=== PATIENT | female | born 1960 | race Caucasian/White ===

== ENCOUNTER 2016-11-05 00:06 | Inpatient (IN) | payer MEDICAID, OTHER ==
--- NOTE | 2016-11-05 00:10 | EDPHY ---
H & P HPI/ROS: HPI CHIEF COMPLAINT: Shortness of breath, respiratory distress HISTORY OF PRESENT ILLNESS: This patient 56-year-old female she tells me she has significant past medical history for thyroid disease, she presents to the emergency room with shortness of breath and feeling unwell times 3 days. She reports very shortness of breath. Additionally reported abdominal pain on . Additionally she states that she went to an emergency room in [facility] on for lateral neck mass. She had a CT scan with IV contrast showed a lateral neck mass. She states since going to the emergency room on she has worsening shortness of breath. She does have a history of asthma. However she feels this is not her asthma. She states she has had decreased urine output. She decided come to the emergency room as her shortness of breath progressively got worse. Upon arrival to urgency room she is breathing 50+ times per minute, speaking 1 word sentences, appears ill and short of breath she is noted to be tachycardic in the 130s. She had a room air saturation of 86% Past Medical History: Thyroid disease, recently diagnosed left neck mass, ? Problem with liver. Obesity Past Surgical History: No recent surgery Social History: Denies Daily use drugs alcohol tobacco products Family History: Noncontributory ROS REVIEW OF SYSTEMS: A comprehensive 10 point review of systems is otherwise negative aside from elements mentioned in the history of present illness. Exam Constitutional respiratory distress, triage nursing summary reviewed, vital signs reviewed, awake/alert. Tachycardic, hypoxic, Eyes icteric sclera, EOMI, PERRLA. HENT normal inspection, atraumatic, moist mucus membranes, no epistaxis, neck supple/ no meningismus, no raccoon eyes. Respiratory decreased breath sounds bilaterally Cardiovascular tachycardic, regular rhythm, no murmur, no edema, distal pulses normal. Gastrointestinal soft, non-tender, no rebound, no guarding, normal bowel sounds, no distension, no pulsatile mass. Genitourinary no CVA tenderness. Musculoskeletal no midline vertebral tenderness, full range of motion, no calf swelling, no tenderness of extremities, no meningismus, good pulses, neurovascularly intact. Skin pink, warm, & dry, no rash, skin atraumatic. Neurologic awake, alert and oriented x 3, AAOx3, moves all 4 extremities equally, motor intact, sensory intact, CN II-XII intact, normal cerebellar, normal vision, normal speech. Psychiatric normal mood/affect. Heme/Lymph/Immune no lymphadenopathy. Differential Diagnosis: Includes but is not limited to in a particular order respiratory distress, hypoxic respiratory failure, volume overload, pulmonary edema, pulmonary embolism, CHF, ACS, cardiac arrhythmia, asthma Medical Decision Making: Plan for this patient patient be moved ER room 11 to ER room 2. She be placed on full face BiPAP. She will be aggressively resuscitated. Noted she is hypoxic, tachycardic, tachypneic and 1 word dyspnea. She appears very ill. She be placed on full face BiPAP this time. She is okay with intubation if need be. She received in-line neb, EKG, full labs including blood cultures lactic acid. Re-evaluation: EKG interpretation by me on record in [facility] system. Impression time of EKG 12:15 a.m., this is sinus tachycardia rate of 132. Upsloping ST depression inferior leads T-wave abnormalities inferior leads. No old EKG to compare this to. 1240AM: This time this patient is being aggressively resuscitated. She is in critical condition on full face BiPAP current heart rate 135. Respiratory rate 50. Blood pressure 74/54. She has impending respiratory failure may need emergent intubation. Additionally she will need nephrology consult for possible emergent dialysis. 0103AM: Spoke with Dr. Kristy Vasques with Nephrology. She was okay with giving her fluids at this time to be further assessed her volume status. She does not feel that this patient needs acute need for emergent dialysis this time. 0123AM: Elevated BNP, elevated troponin and elevated D-dimer. I am greatly concerned this patient has a pulmonary embolism that is significant. I will empirically start heparin. At this time I did re-evaluate her she remains tachycardic in the 120s, respiratory rate in the 40s. 95% on full face BiPAP. 0238AM: At this time this patient remains hypotensive and she is getting her 2nd L fluid. She has made very minimal output. Her urinalysis indicates that she has urinary tract infection. Her CT scan has been reviewed her lungs are clear. Her CT scan of her abdomen and pelvis shows that she has a ureteral stone very large obstructing 13 mm obstructing left-sided kidney stone with hydroureter and stranding around the left kidney. This is most likely cause of her renal failure as well as urinary tract infection. It appears she has an obstructing infected stone. After review of her urinalysis, CT scan shows that she has an obstructing left- sided ureteral stone with underlying a urinary tract infection. This is most likely causing her urosepsis or UTI with sepsis. This most likely causing the elevated lactic acid as well as hypotension. 0241AM: Consult Nephrology. Additionally I will consult Urology, additionally I will consult the hospitalist service for ICU admission. 0241AM: Due to her hypotension which is persistent she will require a right IJ central line for vasopressor management. Procedure: Central line placement. Indication: Hypotension with severe sepsis septic shock. Verbal informed consent was obtained, with the risks explained to include but not be limited to bleeding, infection, and collapsed lung. A timeout was observed and patients identity and correct procedure location confirmed. Full maximal sterile barrier technique was uses including cap, gown, sterile gloves, large sheet, hand washing and chlorhexidine prep. The area anesthetized with 1 % lidocaine. The Right IJ was punctured with a 19 gauge finder needle, then a was placed using standard Seldinger technique. There were no complications. Blood return low pressure, dark blood. Patient tolerated procedure well. CXR results: No Pneumothorax, LINE IN GOOD POSITION. X-ray was interpreted by myself. The procedure was performed by myself. Echocardiogram has been reviewed. This shows tachycardia but no cardiac effusion, no right heart strain. 0243AM: At this time this patient's blood pressure 69/44, heart rate 121. Pulse ox 99% on full face BiPAP. She is in critical condition. She is in septic shock. Septic shock from urinary tract infection with an obstructing kidney stone. I have ordered this patient broad-spectrum antibiotics which includes IV vancomycin + IV Zosyn. She is getting her 2nd L fluid at this time. ED x-ray chest one view: Right central line IJ in good position. No pneumothorax. Critical Care: Total Critical Care Time Spent Managing this Patient: 85 Minutes. This time was spent Exclusively with this patient. This Care was exclusive of procedures. The Organ System/life at risk was multiple organ failure. Multiorgan system failure. Severe sepsis, septic shock, UTI, renal failure This Patient was in Critical Condition because as above. 0251AM: Spoke With Dr. Jacques Conway with Urology, Recommends Perc Neph With IR. consult IR. 0256AM: Spoke with Dr. Kristy Vasques, Nephrology. Okay with 2nd L NS IV. 0308AM: Spoke with Dr. Treadwell with ICU critical care. Agrees with treatment plan at this time. Patient be admitted to the ICU. 0308AM: Spoke with Dr. Andrea, plane for perc Neph. 0427: Dr. Andrea a bedside plans to take this patient to the operating room with general anesthesia for a emergent nephrostomy tube. 0428AM: At this time re-evaluation. The patient's heart rate 111. Blood pressure 92/54 on Levophed at 18. Pulse ox 93% on 2 L nasal cannula. Plan for this patient she will go to the operating room for nephrostomy tube. This will hopefully relieve her obstruction allow the infected urine to drain. This will help with source control. Here in the emergency room she received 3 L of normal saline IV fluid bolus. She is on Levophed at 18. She received IV vancomycin and IV Zosyn. She is currently off BiPAP at this time. She is still tachypneic at 44. She is receiving platelets due to thrombocytopenia. She was initially given heparin as it was thought that she has a pulmonary embolism however she had a normal echocardiogram without right heart strain. And most likely her tachycardia, hypoxia, tachypnea, hypertension is due to severe sepsis from a UTI from an infected obstructing stone. Because it is unlikely that she has a pulmonary embolism however initially she presented like she had one her heparin has been stopped. Additionally she has low platelets. Plan will be for operating room and then ICU admission. Final diagnosis: Sepsis with septic shock, urinary tract infection, renal failure, obstructing kidney stone, thrombocytopenia, dehydration, hyponatremia, hypokalemia, hypoxic respiratory failure. Source: Patient Constitutional: Initial Vital Signs Temperature (C) 37.2 C 11/05/16 00:17 Heart Rate 137 H 11/05/16 00:17 Respiratory Rate 45 H 11/05/16 00:17 O2 Sat (%) 86 L 11/05/16 00:17 O2 Delivery Mode Bi-Pap O2 (L/minute) 4 Allergies/Adverse Reactions: No Known Allergies Allergy (Unverified 11/05/16 00:15) Home Medications: Medication Instructions Recorded Albuterol [Ventolin Hfa Inhaler] 1 - 2 puffs IH Q4 PRN 11/05/16 Calcium Carbonate [Tums 500MG (*)] 500 mg PO PRN PRN 11/05/16 Cholecalciferol Vit D3 [Vitamin D3 2,000 units PO DAILY 11/05/16 (*)] Herbals/Supplements -Info Only 1 ea PO DAILY 11/05/16 Medical Decision Making - Diagnostics Imaging Results: Imaging Impressions Chest X-Ray 11/05/16 00:15 Impression: Question mild pulmonary vascular congestion and early pulmonary edema or bronchitis. Mild cardiomegaly. - Data Points Laboratory Results: Laboratory Results 11/05/16 00:15 11/05/16 02:39 11/05/16 03:13 Patient ABO/Rh O POSITIVE Microbiology Results: MICROBIOLOGY 11/05/16 00:30 Blood Blood Culture - Preliminary Gram Negative Daniel 11/05/16 00:40 Blood Blood Culture - Preliminary Gram Negative Daniel 11/05/16 00:40 Blood Blood Panel (PCR) - Final Escherichia Coli 11/05/16 02:00 Urine,Catheterized Urine Culture - Preliminary Medications Given: Chlorhexidine Gluconate (Peridex) 15 ml PO Q12@08,20 ALBERTO Stop: 05/04/17 19:59 Last Admin: 11/05/16 20:16 Dose: 15 ml Norepinephrine/Sodium Chloride (Norepinephrine 8 Mcg/Ml (Premix)) 500 mls @ 0 mls/hr IV CONT ALBERTO; Titrate PRN Reason: Protocol Stop: 05/04/17 03:59 Last Admin: 11/05/16 17:02 Dose: 500 mls Sodium Chloride (Ns) 1,000 mls @ 125 mls/hr IV CONT ALBERTO Stop: 05/04/17 03:59 Last Admin: 11/05/16 17:03 Dose: 1,000 mls Piperacillin/Tazobactam/Dextrose (Zosyn 2.25 Gm (Premix)) 50 mls @ 100 mls/hr IV 0400,1000,1600,2200 ALBERTO PRN Reason: Protocol Stop: 12/05/16 09:59 Last Admin: 11/05/16 16:10 Dose: 50 mls Vasopressin/Dextrose (Vasopressin 0.1 Unit/Ml (Premix)) 250 mls @ 24 mls/hr IV CONT ALBERTO Stop: 05/04/17 07:29 Last Admin: 11/05/16 17:03 Dose: 250 mls Dexmedetomidine HCl 400 mcg/ (Sodium Chloride) 104 mls @ 0 mls/hr IV CONT ALBERTO; Titrate PRN Reason: Protocol Stop: 05/04/17 07:29 Last Admin: 11/05/16 08:00 Dose: 104 mls Fentanyl/Sodium Chloride (Fentanyl 10 Mcg/Ml (Premix)) 100 mls @ 0 mls/hr IV CONT ALBERTO; Per Protocol PRN Reason: Protocol Stop: 11/15/16 08:59 Last Admin: 11/05/16 08:00 Dose: 100 mls Propofol (Diprivan 10 Mg/Ml (Premix)) 100 mls @ 0 mls/hr IV CONT ALBERTO; Per Protocol PRN Reason: Protocol Stop: 05/04/17 08:59 Last Admin: 11/05/16 17:02 Dose: 100 mls Discontinued Medications Albuterol/Ipratropium (Duoneb) 3 ml IH EDNOW ONE Stop: 11/05/16 00:17 Last Admin: 11/05/16 00:26 Dose: 3 ml Heparin Sodium (Porcine) (Heparin Injection) 0 unit IVP EDNOW ONE PRN Reason: Protocol Stop: 11/05/16 01:15 Last Admin: 11/05/16 01:29 Dose: 7,000 unit Sodium Chloride (Ns) 1,000 mls @ 0 mls/hr IV ONCE ONE PRN Reason: Wide Open Stop: 11/05/16 00:38 Last Admin: 11/05/16 00:38 Dose: 1,000 mls Heparin Sodium (Porcine) (Heparin 50 Units/Ml (Premix)) 500 mls @ 0 mls/hr IV EDNOW ONE; Per Protocol PRN Reason: Protocol Stop: 11/05/16 01:15 Last Admin: 11/05/16 01:31 Dose: 500 mls Vancomycin/Sodium Chloride (Vancomycin 1 Gm (Premix)) 250 mls @ 250 mls/hr IV EDNOW ONE PRN Reason: Protocol Stop: 11/05/16 02:39 Last Admin: 11/05/16 02:32 Dose: 250 mls Piperacillin/Tazobactam/Dextrose (Zosyn (Premix)) 100 mls @ 200 mls/hr IV EDNOW ONE PRN Reason: Protocol Stop: 11/05/16 02:09 Last Admin: 11/05/16 01:58 Dose: 100 mls Sodium Chloride (Ns) 1,000 mls @ 0 mls/hr IV ONCE ONE PRN Reason: Wide Open Stop: 11/05/16 02:08 Last Admin: 11/05/16 02:10 Dose: Not Given Norepinephrine/Sodium Chloride (Norepinephrine 8 Mcg/Ml (Premix)) 500 mls @ 0 mls/hr IV EDNOW ONE; Per Protocol PRN Reason: Protocol Stop: 11/05/16 02:19 Last Admin: 11/05/16 02:46 Dose: 500 mls Sodium Chloride (Ns) 1,000 mls @ 0 mls/hr IV ONCE ONE PRN Reason: Wide Open Stop: 11/05/16 02:55 Last Admin: 11/05/16 02:55 Dose: 1,000 mls Famotidine/Sodium Chloride (Pepcid 20 Mg (Premix)) 50 mls @ 200 mls/hr IV Q12HRS ALBERTO Stop: 05/04/17 08:59 Last Admin: 11/05/16 10:33 Dose: Not Given Potassium Chloride (Potassium Cl 20 Meq (Premix)) 50 mls @ 50 mls/hr IV ONCE ONE Stop: 11/05/16 11:20 Last Admin: 11/05/16 11:33 Dose: 50 mls Magnesium Sulfate/Dextrose (Magnesium Sulf 1 Gm (Premix)) 100 mls @ 100 mls/hr IV ONCE ONE Stop: 11/05/16 11:20 Last Admin: 11/05/16 10:33 Dose: 100 mls Departure - Departure Disposition: [facility] Inpatient Acute Clinical Impression: Septic shock, Kidney stone, Hyponatremia, Elevated troponin, Urinary tract obstruction by kidney stone UTI (urinary tract infection) Qualifiers: Urinary tract infection type: acute cystitis Hematuria presence: with hematuria Qualified Code(s): N30.01 - Acute cystitis with hematuria Respiratory failure Qualifiers: Chronicity: acute Respiratory failure complication: hypoxia Qualified Code(s): J96.01 - Acute respiratory failure with hypoxia Renal failure Qualifiers: Renal failure chronicity: acute Acute renal failure type: unspecified Qualified Code(s): N17.9 - Acute kidney failure, unspecified Condition: Serious
[2016-11-05] MEDS ORDERED: IPRATROPIUM/ALBUTEROL 3 ML DEYVIAL IH ONE (00:16)
--- NOTE | 2016-11-05 00:19 | CPEKG ---
Heart Rate: 132 RR Interval: 455 P-R Interval: 132 QRSD Interval: 100 QT Interval: 288 QTC Interval: 427 P [place]: 46 QRS [place]: -20 T Wave [place]: -5 EKG Severity - ABNORMAL ECG - EKG Impression: SINUS TACHYCARDIA EKG Impression: PROBABLE LEFT ATRIAL ABNORMALITY EKG Impression: BORDERLINE LEFT AXIS DEVIATION EKG Impression: BORDERLINE R WAVE PROGRESSION, ANTERIOR LEADS EKG Impression: BORDERLINE T ABNORMALITIES, INFERIOR LEADS Electronically Signed By: Gael Penaloza 05-Nov-2016 07:02:43
[2016-11-05] MEDS ORDERED: IOPAMIDOL (ISOVUE 370) 100 ML BTL IV ONE (00:33)
[2016-11-05] MEDS ORDERED: NS 1,000 ML IV ONE ×3 (00:37→02:54)
[2016-11-05 00:43] LABS: ALANINE AMINOTRANSFERASE 45 IU/L (9-52); ALBUMIN 2.8 g/dL (3.5-5.0); ALKALINE PHOSPHATASE 180 IU/L (38-126); ANION GAP 16 mEq/L (8-16); ASPARTATE AMINOTRANSFERASE 52 IU/L (14-46); BILIRUBIN,TOTAL 5.2 mg/dL (0.1-1.4); BILIRUBIN-CONJUGATED 2.2 mg/dL (0.0-0.5); CARBON DIOXIDE 15 mEq/l (22-31); CHLORIDE 94 mEq/L (97-110); CREATININE 4.3 mg/dL (0.6-1.0); GLOMERULAR FILTRATION RATE 11; GLUCOSE 101 mg/dL (70-100); MAGNESIUM 1.6 mg/dL (1.6-2.3); SODIUM 125 mEq/L (134-144); TOTAL PROTEIN 5.8 g/dL (6.3-8.2)
[2016-11-05 00:57] LABS: CK-MB INTERPRETATION NEGATIVE (NEGATIVE); CREATINE KINASE-MB FRACTION 0.92 ng/mL (0.00-3.19); TROPONIN I 0.056 ng/mL (0.000-0.034)
[2016-11-05 00:58] LABS: APTT 32.5 SEC (23.0-38.0); INR 1.26 (0.83-1.16); PROTIME(PATIENT) 15.8 SEC (12.0-15.0)
[2016-11-05 01:04] LABS: BASE EXCESS -7.5 mEq/L (-2.5-2.5); BICARBONATE 15 mEq/L (22-26); MEASURED OXYGEN SATURATION 100 % (92-95); PCO2 22 mmHg (34-38); PO2 320 mmHg (65-75); TCO2 15 mEq/L (23-27)
[2016-11-05 01:05] LABS: BIPAP YES; EXP PRESSURE 7; INSP PRESSURE 14; O2 CONCENTRATIION 100 % (0-100); P/F RATIO 320 RATIO
[2016-11-05 01:09] LABS: ADD MORPH? NO; ADD SCAN? YES; ATYPICAL LYMPHOCYTE FLAG 0 (0-99); FRAGMENT RBC FLAG 0 (0-99); HEMATOCRIT 41.5 % (38.0-47.0); HEMOGLOBIN 15.1 g/dL (12.6-16.3); LIPEMIA HEMOLYSIS FLAG 90 (0-99); MEAN CELL HEMOGLOBIN 31.5 pg (27.9-34.1); MEAN CELL HEMOGLOBIN CONCENTR. 36.4 g/dL (32.4-36.7); MEAN CELL VOLUME 86.5 fL (81.5-99.8); MEAN PLATELET VOLUME 12.2 fL (8.7-11.7); PLATELET CLUMPS FLAG 10 (0-99); PLATELET COUNT 56 10^3/uL (150-400); RED CELL DISTRIBUTION WIDTH 12.8 % (11.5-15.2)
[2016-11-05 01:11] LABS: LEFT SHIFT FLG 240 (0-99)
[2016-11-05] MEDS ORDERED: HEPARIN 10,000 UNIT/10 ML MDV IVP ONE (01:14)
[2016-11-05] MEDS ORDERED: HEPARIN/DEXTROSE 500 ML IV ONE (01:14)
[2016-11-05 01:40] LABS: ADD DIFF? YES; SCAN POSITIVE
[2016-11-05] MEDS ORDERED: PIPERACILLIN/TAZO 4.5 GM/DEX 100 ML IV ONE (01:40)
[2016-11-05] MEDS ORDERED: VANCOMYCIN HCL/NORMAL SALINE 250 ML IV ONE ×2 (01:40→08:30)
[2016-11-05 01:44] LABS: PLATELET ESTIMATE DECREASED (ADEQ); TOXIC GRANULATION PRESENT; TOXIC VACUOLIZATION PRESENT
[2016-11-05 02:07] LABS: COLOR AMBER; LEUKOCYTE ESTERASE,URINE 3+ (NEGATIVE); NITRITE,URINE NEGATIVE (NEGATIVE)
[2016-11-05 02:18] LABS: AMORPHOUS PRESENT /hpf (NONE-1+); BACTERIA 2+ /hpf (NONE SEEN); RBC,URINE 50-182 /hpf (0-3); WBC,URINE 50-182 /hpf (0-3)
[2016-11-05] MEDS ORDERED: NOREPINEPHRINE/NS 500 ML IV ONE (02:18)
[2016-11-05 03:08] LABS: ANION GAP 15 mEq/L (8-16); CALCIUM 7.2 mg/dL (8.5-10.4); CARBON DIOXIDE 14 mEq/l (22-31); CHLORIDE 98 mEq/L (97-110); CREATININE 4.2 mg/dL (0.6-1.0); GLOMERULAR FILTRATION RATE 11; GLUCOSE 125 mg/dL (70-100); SODIUM 127 mEq/L (134-144)
[2016-11-05 03:18] LABS: MIXED VENOUS O2 SATURATION 94 % (65-75)
[2016-11-05 03:28] LABS: BASE EXCESS -10.2 mEq/L (-2.5-2.5); BICARBONATE 13 mEq/L (22-26); MEASURED OXYGEN SATURATION 100 % (92-95); PCO2 24 mmHg (34-38); PO2 334 mmHg (65-75); TCO2 14 mEq/L (23-27)
[2016-11-05 03:29] LABS: BIPAP YES; EXP PRESSURE 7; INSP PRESSURE 14; O2 CONCENTRATIION 100 % (0-100); P/F RATIO 334 RATIO
[2016-11-05] MEDS ORDERED: IOPAMIDOL (ISOVUE-300) 100 ML BTL ONE (04:15)
[2016-11-05] MEDS ORDERED: LIDOCAINE 1% 300 MG/30 ML SDV ONE (04:16)
--- NOTE | 2016-11-05 04:16 | PDGENHP ---
History and Physical - Chief Complaint Fatigue - History of Present Illness 56 yo F w/ untreated hypothyroidism and unclear hepatic dysfunction presented to ED acutely ill with complaints of fatigue, malaise, respiratory distress, dysuria, and flank pain. Patient explains she developed dysuria about 3 days ago followed by L sided flank pain 2 days prior to presentation. Then over the last 48 hours she became progressively fatigued and dyspneic. Upon arrival to the ED she was noted to be hypotensive, tachycardic, and hypoxic. Central access was obtained, norepinephrine therapy started, and broad spectrum antibiotics administered. Imaging notable for obstructing L sided nephrolithiasis along with grossly infectious appearing UA. By time of my evaluation patient had stabilized on vasopressors and was oxygenating well only on 2L O2 via NC. She remains in distress but is oriented, interacting, and answering questions appropriately. History Information - Allergies/Home Medication List Allergies/Adverse Reactions: No Known Allergies Allergy (Unverified 11/05/16 00:15) Home Medications: Albuterol 11/05/16 [Last Taken Unknown] NK [No Known Home Meds] 11/05/16 [Last Taken Unknown] I have personally reviewed and updated: family history, medical history - Past Medical History Additional medical history: Hypothyroid - Surgical History Reports: cholecystectomy - Family History Positive for: cancer (Gallbladder CA in mother) - Social History Smoking Status: Never smoked Alcohol Use: None Drug Use: None Review of Systems ROS: 10pt was reviewed & negative except for what was stated in HPI & below Physical Exam Temp Pulse Resp BP Pulse Ox 36.6 C 112 H 45 H 111/61 94 11/05/16 02:55 11/05/16 04:00 11/05/16 04:00 11/05/16 04:00 11/05/16 04:00 O2 (L/minute) 2 Constitutional: obese, uncomfortable Eyes: PERRL, EOMI Ears, Nose, Mouth, Throat: no oral mucosal ulcers, dry mucous membranes, other ( Swelling over L pre-aurical area) Cardiovascular: no murmur, rub, or gallop, tachycardia Respiratory: clear to auscultation, other (tachypneic) Gastrointestinal: normoactive bowel sounds, soft, non-tender abdomen Skin: warm, no rashes or abrasions Musculoskeletal: full muscle strength, no muscle tenderness Neurologic: AAOx3, CN II-XII Intact Psychiatric: interacting appropriately, not encephalopathic Lab Data & Imaging Review 11/05/16 00:15 11/05/16 02:39 WBC 20.95 10^3/uL (3.80-9.50) H 11/05/16 00:15 RBC 4.80 10^6/uL (4.18-5.33) 11/05/16 00:15 Hgb 15.1 g/dL (12.6-16.3) 11/05/16 00:15 POC Hgb 15.0 gm/dL (12.6-16.3) 11/05/16 00:26 Hct 41.5 % (38.0-47.0) 11/05/16 00:15 POC Hct 44 % (38-47) 11/05/16 00:26 MCV 86.5 fL (81.5-99.8) 11/05/16 00:15 MCH 31.5 pg (27.9-34.1) 11/05/16 00:15 MCHC 36.4 g/dL (32.4-36.7) 11/05/16 00:15 RDW 12.8 % (11.5-15.2) 11/05/16 00:15 Plt Count 56 10^3/uL (150-400) L 11/05/16 00:15 MPV 12.2 fL (8.7-11.7) H 11/05/16 00:15 Neut % (Auto) Not Reported 11/05/16 00:15 Lymph % (Auto) Not Reported 11/05/16 00:15 [place] % (Auto) Not Reported 11/05/16 00:15 Eos % (Auto) Not Reported 11/05/16 00:15 Baso % (Auto) Not Reported 11/05/16 00:15 Nucleat RBC Rel Count 0.0 % (0.0-0.2) 11/05/16 00:15 Absolute Neuts (auto) Not Reported 11/05/16 00:15 Absolute Lymphs (auto) Not Reported 11/05/16 00:15 Absolute Monos (auto) Not Reported 11/05/16 00:15 Absolute Eos (auto) Not Reported 11/05/16 00:15 Absolute Basos (auto) Not Reported 11/05/16 00:15 Absolute Nucleated RBC 0.00 10^3/uL (0-0.01) 11/05/16 00:15 Immature Gran % Not Reported 11/05/16 00:15 Seg Neutrophils % 80 % 11/05/16 00:15 Band Neutrophils % 11 % 11/05/16 00:15 Lymphocytes % 3 % 11/05/16 00:15 Monocytes % 6 % 11/05/16 00:15 Immature Gran # Not Reported 11/05/16 00:15 Absolute Seg Neuts 16.76 10^/uL (1.70-6.50) H 11/05/16 00:15 Absolute Band Neuts 2.30 10^3/uL (0.00-0.70) H 11/05/16 00:15 Absolute Lymphocytes 0.63 10^3/uL (1.00-3.00) L 11/05/16 00:15 Absolute Monocytes 1.26 10^3/uL (0.30-0.80) H 11/05/16 00:15 RBC/WBC/PLT Morphology NORMAL (NORMAL) 11/05/16 00:15 Toxic Granulation PRESENT H 11/05/16 00:15 Toxic Vacuolation PRESENT H 11/05/16 00:15 Dohle Bodies PRESENT H 11/05/16 00:15 Platelet Estimate DECREASED (ADEQ) L 11/05/16 00:15 PT 15.8 SEC (12.0-15.0) H 11/05/16 00:15 INR 1.26 (0.83-1.16) H 11/05/16 00:15 APTT 32.5 SEC (23.0-38.0) 11/05/16 00:15 D-Dimer 8.62 ug/mLFEU (0.00-0.50) H 11/05/16 00:15 Puncture Site NONE GIVEN 11/05/16 03:15 Patient Temperature 37.0 DEGREES 11/05/16 03:15 pCO2 24 mmHg (34-38) L 11/05/16 03:15 pO2 334 mmHg (65-75) H 11/05/16 03:15 Total CO2 14 mEq/L (23-27) L 11/05/16 03:15 ABG pH 7.36 (7.35-7.45) 11/05/16 03:15 ABG PO2/FiO2 Ratio 334 RATIO 11/05/16 03:15 ABG HCO3 13 mEq/L (22-26) L 11/05/16 03:15 ABG O2 Saturation 100 % (92-95) H 11/05/16 03:15 ABG Base Excess -10.2 mEq/L (-2.5-2.5) L 11/05/16 03:15 VBG Lactic Acid 1.8 mmol/L (0.7-2.1) D 11/05/16 02:39 Mixed VBG O2 Saturation 94 % (65-75) H 11/05/16 03:13 O2 Concentration % 100 % (0-100) 11/05/16 03:15 Expiratory Pressure 7 11/05/16 03:15 Inspiratory Pressure 14 11/05/16 03:15 Mode BiPAP YES 11/05/16 03:15 POC Sodium 129 mEq/L (134-144) L 11/05/16 00:26 Sodium 127 mEq/L (134-144) L 11/05/16 02:39 POC Potassium 2.9 mEq/L (3.3-5.0) L 11/05/16 00:26 Potassium 3.0 mEq/L (3.5-5.2) L 11/05/16 02:39 POC Chloride 96 mEq/L (97-110) L 11/05/16 00:26 Chloride 98 mEq/L (97-110) 11/05/16 02:39 Carbon Dioxide 14 mEq/l (22-31) L 11/05/16 02:39 Anion Gap 15 mEq/L (8-16) 11/05/16 02:39 POC BUN 60 mg/dL (7-23) H 11/05/16 00:26 BUN 65 mg/dL (7-23) H 11/05/16 02:39 Creatinine 4.2 mg/dL (0.6-1.0) H 11/05/16 02:39 POC Creatinine 4.9 mg/dL (0.6-1.0) H 11/05/16 00:26 Estimated GFR 11 11/05/16 02:39 Glucose 125 mg/dL (70-100) H 11/05/16 02:39 POC Glucose 105 mg/dL (70-100) H 11/05/16 00:26 Calcium 7.2 mg/dL (8.5-10.4) L 11/05/16 02:39 Magnesium 1.6 mg/dL (1.6-2.3) 11/05/16 00:15 Total Bilirubin 5.2 mg/dL (0.1-1.4) H 11/05/16 00:15 Conjugated Bilirubin 2.2 mg/dL (0.0-0.5) H 11/05/16 00:15 Unconjugated Bilirubin 3.0 mg/dL (0.0-1.1) H 11/05/16 00:15 AST 52 IU/L (14-46) H 11/05/16 00:15 ALT 45 IU/L (9-52) 11/05/16 00:15 Alkaline Phosphatase 180 IU/L (38-126) H 11/05/16 00:15 Creatine Kinase 177 IU/L (0-156) H 11/05/16 00:15 CK-MB (CK-2) Fraction 0.92 ng/mL (0.00-3.19) 11/05/16 00:15 CK-MB (CK-2) % 0.5 % (0.0-4.0) 11/05/16 00:15 Creatine Kinase Interp NEGATIVE (NEGATIVE) 11/05/16 00:15 Troponin I 0.056 ng/mL (0.000-0.034) H 11/05/16 00:15 NT-Pro-B Natriuret Pep 4630 pg/mL (0-125) H 11/05/16 00:15 Total Protein 5.8 g/dL (6.3-8.2) L 11/05/16 00:15 Albumin 2.8 g/dL (3.5-5.0) L 11/05/16 00:15 Lipase 47 IU/L (23-300) 11/05/16 00:15 TSH 9.030 uIU/mL (0.465-4.680) H 11/05/16 00:15 Urine Color TONY 11/05/16 01:45 Urine Appearance MODERATELY TURBID 11/05/16 01:45 Urine pH 5.0 (5.0-7.5) 11/05/16 01:45 Ur Specific [place] 1.021 (1.002-1.030) 11/05/16 01:45 Urine Protein 2+ (NEGATIVE) H 11/05/16 01:45 Urine Ketones NEGATIVE (NEGATIVE) 11/05/16 01:45 Urine Blood 3+ (NEGATIVE) H 11/05/16 01:45 Urine Nitrate NEGATIVE (NEGATIVE) 11/05/16 01:45 Urine Bilirubin NEGATIVE (NEGATIVE) 11/05/16 01:45 Urine Urobilinogen NEGATIVE EU (0.2-1.0) 11/05/16 01:45 Ur Leukocyte Esterase 3+ (NEGATIVE) H 11/05/16 01:45 Urine RBC 50-182 /hpf (0-3) H 11/05/16 01:45 Urine WBC 50-182 /hpf (0-3) H 11/05/16 01:45 Ur Epithelial Cells 2+ /lpf (NONE-1+) H 11/05/16 01:45 Amorphous Sediment PRESENT /hpf (NONE-1+) 11/05/16 01:45 Urine Bacteria 2+ /hpf (NONE SEEN) H 11/05/16 01:45 Urine Glucose 1+ (NEGATIVE) H 11/05/16 01:45 Urine Opiates Screen NEGATIVE (NEGATIVE) 11/05/16 01:45 Urine Barbiturates NEGATIVE (NEGATIVE) 11/05/16 01:45 Ur Phencyclidine Scrn NEGATIVE (NEGATIVE) 11/05/16 01:45 Ur Amphetamine Screen NEGATIVE (NEGATIVE) 11/05/16 01:45 U Benzodiazepines Scrn NEGATIVE (NEGATIVE) 11/05/16 01:45 Urine Cocaine Screen NEGATIVE (NEGATIVE) 11/05/16 01:45 U Marijuana (THC) Screen NEGATIVE (NEGATIVE) 11/05/16 01:45 Patient ABO/Rh O POSITIVE 11/05/16 03:13 Imaging Review: CT Chest negative CT A/P: Obstructing L prox ureteral 11x7x7 mm stone with urinary extravasation . Tiny nonobstuctive R nephrolith. Visualized and Interpreted Chest x-ray results: Yes Chest X-Ray results: no infiltrate Visualized and Interpreted EKG results: Yes EKG Interpretation: Positive for: normal sinsus rhythm (Sinus tach, low voltages ) Assessment & Plan Assessment: 56 yo F w/ untreated hypothyroidism and unclear hx of hepatic dysfunction presents with septic shock due to urinary source and complicated by obstructing kidney stone. Plan: 1. Septic shock - Due to urinary source; hypotensive on arrival requiring vasopressor support. Grossly infectious UA and imaging w/ obstructing left sided nephrolithiasis. 4/4 SIRS criteria, SOFA of [address] chest without evidence of pulmonary infection. Patient does have swollen L parotid gland for 3 weeks but doubt this is related to current illness. - IR consulted for emergent percutaneous nephrostomy for source control - Vancomycin + Zosyn IV, renally dosed - Continue norepinephrine - mIVF after initial 30 mL/kg resuscitation - Nephrology, urology, and pulmonary cc consulted, appreciate assistance 2. Acute renal failure - Cr 4.3 on admission from presumably normal baseline. Likely multifactorial at this point from obstruction, sepsis, and possible ATN noting hypotension. - Acute therapy as above, nephrology consulted 3. Abnormal LFTs - Patient describes unclear history of elevated bilirubin several years ago. Suspect dysfunction largely related to septic shock. She is status post cholecystectomy. - Trend LFTs, consider additional work-up if not improving with treatment of infection 4. Elevated troponin - Suspect demand, denies chest pain and ECG non-ischemic. Will trend enzymes. 5. AHRF - Mild, initially on NIPPV in setting of shock. Once on vasopressor therapy, able to wean to NC. May require intubation for nephrostomy procedure. 6. Thrombocytopenia - Likely related to sepsis, monitor. 1u platelets ordered in ED prior to procedure. 7. Elevated TSH - Patient reports untreated hypothyroidism. Doubt this is contributing to acute illness but monitor need for thyroid replacement. 8. Hyponatremia - Hypovolemic, IVF and monitor. 9. Coagulopathy - Monitor PT/INR. Diet - NPO Code - Full Ppx - SCDs noting upcoming procedure Dispo - Admit to ICU status for treatment of septic shock I personally spent 60 minutes of critical care time evaluating patient, interpreting laboratory and imaging results, and discussing case with consulting physicians and patient/family.
--- NOTE | 2016-11-05 04:30 | PDANEPAE ---
ANE History of Present Illness 56 yo female presenting to ED with septic shock from urosepsis. For emergent percutaneous nephrostomy tube to alleviate obstruction from large L ureteral nephrolithiasis. ANE Past Medical History - Pulmonary History Hx Asthma/Reactive Airway Disease: Yes Hx Oxygen in Use at Home: No Hx Sleep Apnea: No - Endocrine History Hx Diabetes: No Hypothyroid: Yes Obesity: moderate ANE Review of Systems - Systems Constitutional: Reports: chills, fever Cardiac: Reports: other (ST from sepsis, hypotensive on Levophed) Respiratory: Reports: shortness of breath (On BiPAP for resp failure (tachypnea , hypoxia)) Genitourinary: Reports: other (SMITH with urosepsis from obstructing L ureteral stone) ANE Patient History - Allergies Allergies/Adverse Reactions: No Known Allergies Allergy (Unverified 11/05/16 00:15) - Home Medications Home Medications: Albuterol 11/05/16 [Last Taken Unknown] NK [No Known Home Meds] 11/05/16 [Last Taken Unknown] - NPO status NPO Since - Liquids (Date): 11/04/16 NPO Since - Liquids (Time): 22:30 NPO Since - Solids (Date): 11/04/16 NPO Since - Solids (Time): 10:00 - Anes Hx Anes Hx: post operative nausea and vomiting - Smoking Hx Smoking Status: Never smoked - Alcohol Use Alcohol Use: None - Family Anes Hx Family Anes Hx: neg - N/A ANE Labs/Vital Signs - Labs Result Diagrams: 11/05/16 00:15 11/05/16 02:39 - Vital Signs Blood Pressure: 111/61 Heart Rate: 112 Respiratory Rate: 45 O2 Sat (%): 94 Weight: 136 kg ANE Physical Exam - Airway Mallampati Score: Class 2 Mouth exam: normal dental/mouth exam - Pulmonary Pulmonary: respiratory distress - Cardiovascular Cardiovascular: tachycardia - ASA Status ASA Status: III, E ANE Anesthesia Plan Anesthesia Plan: general endotracheal anesthesia, MAC
[2016-11-05] MEDS ORDERED: ETOMIDATE 20 MG/10 ML VIAL ONE (04:37)
[2016-11-05] MEDS ORDERED: ROCURONIUM 50 MG/5 ML VIAL ONE (04:37)
[2016-11-05] MEDS ORDERED: KETAMINE 100 MG/10 ML SYR ONE (04:37)
[2016-11-05] MEDS ORDERED: SUCCINYLCHOLINE CHLORIDE*ANESTHESIA ONLY*200 MG/10 ML SYR IVP ONE (04:37)
[2016-11-05] MEDS ORDERED: DEXMEDETOMIDINE HCL 400 MCG in NS 100 ML IV SCH ×2 (05:00→07:30)
[2016-11-05] MEDS ORDERED: DEXAMETHASONE 4 MG/ML VIAL ONE (05:17)
[2016-11-05] MEDS ORDERED: ONDANSETRON 4 MG/2 ML VIAL ONE (06:27)
[2016-11-05] MEDS ORDERED: fentaNYL 100 MCG/2 ML INJ ONE (06:46)
[2016-11-05] MEDS ORDERED: fentaNYL 100 MCG/2 ML INJ IVP PRN (07:19)
[2016-11-05] MEDS ORDERED: PROMETHAZINE HCL 25 MG/ML INJ IVP PRN (07:19)
[2016-11-05] MEDS ORDERED: ALBUTEROL 3 ML DEYVIAL IH PRN (07:19)
[2016-11-05] MEDS ORDERED: NALOXONE HCL 0.4 MG/ML INJ IVP PRN (07:19)
[2016-11-05] MEDS ORDERED: ACETAMINOPHEN 650 MG SUPP PR PRN (07:26)
[2016-11-05] MEDS ORDERED: PHENYLEPHRINE HCL 50 MG in D5W 250 ML IV SCH (07:30)
[2016-11-05] MEDS ORDERED: DOBUTamine/DEXTROSE 250 ML IV SCH (07:30)
[2016-11-05] MEDS ORDERED: NOREPINEPHRINE/NS 500 ML IV SCH (07:30)
--- NOTE | 2016-11-05 07:31 | SOAPPROG ---
SOAP Progress Note Assessment/Plan: Assessment: Please see dictation # [id number] I discussed my recs with IR and ICU team pager [phone] 11/05/16 08:45 Objective: Vital Signs Temp Pulse Resp BP Pulse Ox 36.6 C 112 H 45 H 111/61 94 11/05/16 04:29 11/05/16 04:53 11/05/16 04:53 11/05/16 04:53 11/05/16 04:53 11/04/16 11/05/16 11/06/16 05:59 05:59 05:59 Intake Total 2220 Output Total 200 Balance 2020 PT 15.8 SEC (12.0-15.0) H 11/05/16 00:15 INR 1.26 (0.83-1.16) H 11/05/16 00:15 ICD10 Worksheet Patient Problems: Problems Problem Status Onset Elevated troponin Acute Hyponatremia Acute Kidney stone Acute Renal failure Acute Respiratory failure Acute Septic shock Acute UTI (urinary tract infection) Acute Urinary tract obstruction by kidney stone Acute
--- NOTE | 2016-11-05 07:39 | POSTOPPROG ---
Post Op Note Date of Operation: 11/05/16 Surgeon: Rangel Andrea Anesthesiologist: Feliz Anesthesia: GET(General Endotracheal) Pre-op Diagnosis: Sepsis, left obstructing stone and pyelonephritis Post-op Diagnosis: Same Indication: Left obstructing stone and pyelonephritis Procedure: Left nephrostomy Findings: Technically challenging procedure. See dictated report for details. Inf/Abcess present in the surg proc area at time of surgery?: Yes Depth: Organ Space (Lt kidney) EBL: Minimal Complications: No immediate Drains: Nephrostomy (Left 10-Fr nephrostomy) Specimen(s): 8 cc frankly purulent urine
[2016-11-05] MEDS: fentaNYL/NACL 100 ML IV SCH ×2 (08:00→23:45)
[2016-11-05] MEDS: VASOPRESSIN/DEXTROSE 250 ML IV SCH ×2 (08:00→17:03)
[2016-11-05] MEDS: NS 1,000 ML IV SCH ×2 (08:00→17:03)
[2016-11-05] MEDS: NOREPINEPHRINE/NS 500 ML IV SCH ×3 (08:00→17:02)
[2016-11-05] MEDS ORDERED: fentanYL/NACL/100 ML BAG IV ONE (08:06)
--- NOTE | 2016-11-05 08:12 | POSTANESTH ---
Post Anesthetic Evaluation Cardiovascular Status: Other, See Comment (Hypotensive requiring norepinephrine gtt.) Respiratory Status: Other, See Comment (Intubated, tachypneic) Level of Consciousness/Mental Status: Unconscious Notes: Pt transferred intubated and sedated to ICU. Unable to assess pain or N/V at this time. Anticipate at least 24 hours of intubation and sedation, so pt will unlikely be able to participate in an evaluation during that time.
[2016-11-05 08:40] LABS: ADD DIFF? YES; ADD MORPH? NO; ADD SCAN? YES; ATYPICAL LYMPHOCYTE FLAG 0 (0-99); FRAGMENT RBC FLAG 0 (0-99); HEMATOCRIT 38.9 % (38.0-47.0); HEMOGLOBIN 13.5 g/dL (12.6-16.3); LIPEMIA HEMOLYSIS FLAG 90 (0-99); MEAN CELL HEMOGLOBIN CONCENTR. 34.7 g/dL (32.4-36.7); MEAN CELL VOLUME 89.4 fL (81.5-99.8); MEAN PLATELET VOLUME 12.1 fL (8.7-11.7); PLATELET CLUMPS FLAG 30 (0-99); PLATELET COUNT 58 10^3/uL (150-400); RED BLOOD CELL COUNT 4.35 10^6/uL (4.18-5.33); RED CELL DISTRIBUTION WIDTH 13.2 % (11.5-15.2)
[2016-11-05 08:42] LABS: INR 1.08 (0.83-1.16); LEFT SHIFT FLG 220 (0-99); PROTIME(PATIENT) 13.9 SEC (12.0-15.0)
[2016-11-05] MEDS ORDERED: FAMOTIDINE 20 MG/NACL 50 ML IV SCH (09:00)
[2016-11-05 09:02] LABS: ALANINE AMINOTRANSFERASE 46 IU/L (9-52); ALBUMIN 2.7 g/dL (3.5-5.0); ALKALINE PHOSPHATASE 178 IU/L (38-126); ANION GAP 16 mEq/L (8-16); ASPARTATE AMINOTRANSFERASE 47 IU/L (14-46); BILIRUBIN,TOTAL 5.2 mg/dL (0.1-1.4); CALCIUM 6.9 mg/dL (8.5-10.4); CARBON DIOXIDE 14 mEq/l (22-31); CHLORIDE 100 mEq/L (97-110); GLOMERULAR FILTRATION RATE 12; GLUCOSE 117 mg/dL (70-100); POTASSIUM 3.9 mEq/L (3.5-5.2); SODIUM 130 mEq/L (134-144); TOTAL PROTEIN 5.3 g/dL (6.3-8.2)
[2016-11-05 09:04] LABS: BASE EXCESS -12.3 mEq/L (-2.5-2.5); BICARBONATE 13 mEq/L (22-26); MEASURED OXYGEN SATURATION 99 % (92-95); PCO2 30 mmHg (34-38); PO2 155 mmHg (65-75); TCO2 14 mEq/L (23-27)
[2016-11-05 09:06] LABS: END TIDAL CO2 22; P/F RATIO 194 RATIO; SIMV YES
[2016-11-05 09:07] LABS: O2 CONCENTRATIION 80 % (0-100); PATIENT RATE 16; PRESSURE SUPPORT 16
[2016-11-05 09:13] LABS: TROPONIN I 0.018 ng/mL (0.000-0.034)
[2016-11-05 09:25] LABS: BILIRUBIN-CONJUGATED 3.7 mg/dL (0.0-0.5); BILIRUBIN-UNCONJUGATED 1.5 mg/dL (0.0-1.1)
[2016-11-05] MEDS: PIPERACILLIN/TAZO 2.25 GM/DEX 50 ML IV SCH ×3 (09:28→22:18)
[2016-11-05 09:30] LABS: PLATELET ESTIMATE DECREASED (ADEQ); TOXIC VACUOLIZATION PRESENT
--- NOTE | 2016-11-05 09:53 | GCON ---
[f rep st] CONSULTATION [employer] CONSULTATION REASON FOR ADMISSION: Respiratory failure, septic shock, urinary source. HISTORY OF PRESENT ILLNESS: The patient is a 56-year-old white female with past medical history of morbid obesity and hypothyroidism. She presented to the emergency room with complaints of fatigue, respiratory distress, dysuria, and flank pain. Extensive workup in the emergency room includes urin alysis and echocardiogram. She underwent abdominal CT, which revealed a stone. She subsequently wa s intubated and sent for percutaneous nephrostomy tube. Currently, she is sedated in septic shock, on mechanical ventilation in the intensive care unit. All history is gleaned from the medical recor d. PAST MEDICAL HISTORY: Significant for hypothyroidism. PAST SURGICAL HISTORY: She had a cholecystectomy. ALLERGIES: No known allergies to medications. SOCIAL HISTORY: No history of tobacco use. No history of alcohol use. She is . Lives in [place], [place]. Has good family support. MEDICATIONS: At home include albuterol. PHYSICAL EXAM: VITAL SIGNS: Blood pressure is 101/60, pulse 103, respirations 24, temperature is 3 7.6, oxygen saturation is 99% on mechanical ventilation. GENERAL: She is a morbidly obese, 56-year -old white female, who is sedated and on mechanical ventilation. HEENT: Eyes are PERRLA, EOMI. Th roat: Endotracheal tube is in good position. NECK: Supple. No cervical adenopathy. HEART: Regu lar rate and rhythm without murmurs, rubs, gallops. LUNGS: Diminished breath sounds. No wheezes a ppreciated. ABDOMEN: Soft, nontender. Bowel sounds are present but diminished. EXTREMITIES: No clubbing, cyanosis, or edema. SKIN: She has a small decubitus ulcer near the coccyx. LABORATORIES: White count 14.45, hemoglobin 13, hematocrit 38, platelet count is 58. INR is 1.08. Sodium is 130, potassium 3.9, chloride 100, CO2 is 14, BUN is 63, creatinine 4.0, glucose 117. Mark irubin is elevated at 3. AST is mildly elevated 47, ALT 46, alkaline phosphatase elevated 178. CPK is 177. Troponins are mildly positive. BNP is elevated at 4630. TSH is elevated at 9.03. Urinal ysis: pH is 5, specific gravity 1.021, 2+ protein, 3+ blood, high levels of RBCs and WBCs, 2+ bacter ia. Urine drug screen is negative. Arterial blood gas: pH of 7.27, pCO2 of 30, pO2 155, bicarb 14, oxygen saturation 99%. This is on IMV of 16, tidal volume 500, +7 of pressure support, +6 of PEEP. Chest x-ray shows some pulmonary congestion. Endotracheal tube in good position. IMPRESSION: 1. Septic shock. 2. Acute respiratory failure. 3. Infected kidney stone. 4. Morbid obesity. 5. Thrombocytopenia. 6. Acute renal failure, likely acute tubular necrosis secondary to sepsis and septic shock. 7. Metabolic acidosis. RECOMMENDATIONS: 1. Agree with broad-spectrum antibiotics. 2. Continue mechanical ventilation for now. Will evaluate for extubation. 3. Continue IV pressors. Wean Levophed as tolerated. Currently on a combination of Levophed and v asopressin. 4. IV fluids. 5. Follow H and H closely as well as watching for hematuria. 6. Sepsis protocol. 7. DVT and PE prophylaxis. 8. Stress ulcer prophylaxis. /[id number]/MODL
[2016-11-05] MEDS ORDERED: PROTOCOL K PHOSPHATE 1 DOSE IV PRN (09:54)
[2016-11-05] MEDS ORDERED: PROTOCOL POTASSIUM 1 DOSE MISC PRN (09:54)
[2016-11-05] MEDS ORDERED: PROTOCOL CALCIUM 1 DOSE IV PRN (09:54)
[2016-11-05] MEDS ORDERED: PROTOCOL MAGNESIUM 1 DOSE IV PRN (09:54)
--- NOTE | 2016-11-05 10:10 | ECHO ---
[id number] + + [id number] : : [place] [id number] : : [phone] + + Adult Echocardiographic Report + + :Name: BURKE ORTA Study Date: 11/05/2016 01:56 AM BP: 76/66 mmHg : : Hospital Admission Number: [id number] : :: 1960 Gender: Female Height: 63 in : :Age: 56 yrs Race: WH Weight: 300 lb : :Reason For Study: Eval LV Fx : : BSA: 2.3 meters2: :History: SOB, Hypotension, BiPAP, Kidney failure : + + MMode/2D Measurements \T\ Calculations IVSd: 1.0 cm LVIDd: 4.8 cm FS: 24.5 % Ao root diam: 2.6 cm LVPWd: 1.1 cm LVIDs: 3.6 cm EDV(Teich): 109.1 ml ACS: 1.5 cm ESV(Teich): 56.1 ml EF(Teich): 48.6 % Normal Measurement Values: + + :LVIDd (3.5-5.7cm) IVSd (0.6-1.1cm) LVPWd (0.6-1.1cm) Aortic Root (2.0-3.7cm)Left Atrium (1.5-4.0cm): :LV Vol(d) (76-115ml) LV Vol(s) (29-48ml) Ejec Fraction (50-65%)PV Aleksandr (0.6- 1.2m/s) TV Aleksandr (0.4-1.0m/s) : :MV E Aleksandr (0.8-1.0m/s)MV A Aleksandr (0.3-1.0m/s)LVOT Aleksandr (0.7-1.2m/s) Asc Ao Aleksandr ( 0.9-1.8m/s) : + + Doppler Measurements \T\ Calculations MV E max aleksandr: 53.8 cm/sec Ao V2 max: 137.0 cm/sec LV V1 max: 94.8 cm/sec MV A max aleksandr: 88.8 cm/sec Ao max P.5 mmHg LV V1 max P.6 mmHg MV E/A: 0.61 Left Ventricle The left ventricle is normal in size. There is normal left ventricular wall thickness. The left ventricular ejection fraction is normal. There is Doppler evidence for diastolic dysfunction. Tachycardia. No regional wall motion abnormalities noted. Right Ventricle The right ventricle is normal in size and function. Atria The left atrial size is normal. Right atrial size is normal. Mitral Valve The mitral valve is normal in structure and function. There is no evidence of mitral valve prolapse. There is no mitral valve stenosis. There is no mitral regurgitation noted. Tricuspid Valve The tricuspid valve is normal in structure and function. No tricuspid regurgitation. Aortic Valve The aortic valve opens well. There is no aortic stenosis. There is no aortic insufficiency. Pulmonic Valve The pulmonic valve is not well visualized. There is no pulmonic valvular regurgitation. Great Vessels The aortic root is normal size. Pericardium/Pleural There is no pericardial effusion. There is a fat pad seen. Conclusion A complete two-dimensional transthoracic echocardiogram was performed (2D, M-mode, Doppler and color flow Doppler). The left ventricle is normal in size.The left ventricular ejection fraction is normal.No regional wall motion abnormalities noted.Diastolic dysfunction noted. There is no pericardial effusion. There is a fat pad seen. Final Reading Physician: Carol Veras signed on 11/05/2016 10:09 AM Ordering Physician: Gael Penaloza Performed By: Philippe Liang, ARISCS
[2016-11-05] MEDS ORDERED: POTASSIUM Cl (KCl) 50 ML IV ONE (10:21)
[2016-11-05] MEDS ORDERED: MAGNESIUM SULF 1 GM/DEXTROSE 100 ML IV ONE (10:21)
--- NOTE | 2016-11-05 10:44 | GCON ---
[f rep st] CONSULTATION INPATIENT NEPHROLOGY CONSULTATION DATE OF CONSULTATION: 11/05/2016 REFERRING PHYSICIAN: Gael Penaloza MD REASON FOR CONSULTATION: Acute kidney injury. HPI: This is a 56-year-old woman, with a history of thyroid disease of unclear etiology, who presen jaime to the emergency room overnight with shortness of breath and generalized malaise. She had recen tly been seen in an emergency room in [place] for concerns for swelling of her neck and u nderwent a CT scan with IV contrast at that time. The details of the diagnosis are not clear at the time of this dictation. She has developed significant shortness of breath and generalized malaise since then. On presentation to the emergency Room, she was in extremis with tachycardia, hypotensio n, hypoxia, and ultimately felt to be in septic shock. She underwent CT of the abdomen and pelvis t hat showed left hydronephrosis from an obstructing stone, with concern for pyelonephritis. I did sp eak with Dr. Penaloza overnight and recommended Interventional Radiology for emergent percutaneous ne phrostomy, which she has since undergone. Discussing with Interventional Radiology was a very techn ically difficult procedure, requiring multiple sticks due to her habitus and inability to get a well -visualized kidney. Once the nephrostomy was placed, she had lauri pus noted, which has been sent f or culture. She has developed worsening hypotension and is now on Levophed and vasopressin. She is also intubated currently. Her labs show a creatinine of 4.3, potassium 3.0, and a bicarbonate of 1 5. Her lactate was elevated. Her most recent blood gas showed a pH of 7.36, a pCO2 of 24, and bica rbonate of 13. She did receive 2 L of IV normal saline bolus in the ER and is on a maintenance dose currently. Her urine toxicology screen was negative. We do not have any prior creatinine values i n the system to know what her baseline, other than from 2013; at which time, her creatinine was 0.8. She is currently intubated and sedated and unable to answer any questions, so most of this is from obtained from discussing with Dr. Penaloza and the interventional radiologist, as well as reviewing her chart. REVIEW OF SYSTEMS: She is intubated and sedated, unable to give a history, but reviewing the ER rec ords, she was complaining of shortness of breath, recent left lateral neck swelling, generalized mal aise, and flank pain. PAST MEDICAL HISTORY: 1. Hypothyroidism. 2. Recent evaluation for neck swelling of unclear etiology. She had a recent CT with contrast done in the emergency room in [place] that we will send for records. 3. Status post cholecystectomy. SOCIAL HISTORY: She is and lives in [place]. Reportedly works up in [employer]. From e chart, it appears that she does not have a tobacco or significant alcohol or drug history. FAMILY HISTORY: Unable to obtain as patient is intubated and sedated. From the hospitalist's note, it appears that her mother had gallbladder cancer. PHYSICAL EXAM: Her temperature is 36.6, blood pressure is 111/61, heart rate 112. She is saturatin g in the 90s on FiO2 of 60%. GENERAL: She is intubated and sedated, on vasopressin and Levophed. HEENT: She has generalized erythema over her face. Her ET tube is in place. No scleral icterus. NECK: Has a right IJ triple lumen in place. CARDIAC: Regular rate and rhythm. Mild tachycardia. No rub. LUNGS: Coarse breath sounds on the vent bilaterally. ABDOMEN: Soft. Positive bowel david nds. She does have some erythema, suggestive of Sol, under her pannus. BACK: She has a left p ercutaneous nephrostomy in place with bloody output. : Has a Nunez in place with yellow-appearin g urine. SKIN: Has tattoos. No obvious rash. EXTREMITIES: Warm, no edema. NEUROLOGIC: Sedated , not following my commands. LABS: White blood cell count 20.9, hemoglobin 15.1, hematocrit 41, platelets 56. Blood gas showed a pH of 7.36, bicarb 13, pCO2 of 14, PO2 334. Sodium 129, potassium 3.0, chloride 96, bicarbonate 1 4, BUN 60, creatinine 4.2, glucose 125, calcium 7.2, magnesium 1.6. Total bilirubin 5.2, conjugated bilirubin 2.2. AST 52, ALT 45, alkaline phosphatase 180, CK 177. Troponin 0.056, BMP 4630, total protein 5.8, albumin 2.8, lipase 47. TSH 9.030. Urine toxicology screen was negative. IMAGING: Her final report of her abdominal and pelvic CT is pending, but per the emergency room, milly calzada had a left-sided hydronephrosis with a stone and evidence of pyelonephritis on that side. ASSESSMENT AND PLAN: The patient is a 56-year-old woman, with a history of hypothyroidism, who now presents with septic shock, acute kidney injury, left-sided hydronephrosis from a stone: 1. Acute kidney injury. It is unclear what her baseline renal function is, as we do not have any p rior labs. She most likely now has acute tubular necrosis in the setting of septic shock, recent in travenous contrast, and obstructing left urinary tract system. She has been admitted to the intensi ve care unit and is currently on pressors. She has undergone an emergent left percutaneous nephrost binta for the obstructing stone on the left side with lauri pus noted. She is still making urine. At this point, I would continue intravenous fluids for now. There are no acute indications for dialys is, but she is at high risk for the next 24 to 48 hours and would likely require continuous renal re placement therapy at that time. We will continue follow closely with you. 2. Sepsis: It appears that it is likely a urinary tract source with the hydronephrosis and obstruc ting stone. The purulent drainage from the percutaneous nephrostomy has been sent for culture. She is on broad-spectrum antibiotics and on pressors. 3. Metabolic acidosis: Her pH is compensated with mechanical ventilation. We are repeating a lact ate now. There are likely underlying sepsis and acute kidney injury. 4. Hypokalemia: We have a repeat lab pending and anticipate we may have to gently replete but will be cautious, given her kidney function. 5. Recent neck mass: We will get CT records from the outside hospital to determine the etiology of this. She does also have some underlying hypothyroidism. 6. Thrombocytopenia: Suspect this is likely related to her sepsis. Will need to follow this. Thr ombotic thrombocytopenic purpura seems unlikely at this point, but will need to consider this as a p ossibility. Thank you very much for the consultation. We will continue to follow very closely with you. Please do not hesitate to call with any questions. /[id number]/MODL
[2016-11-05] MEDS: PROPOFOL/EMULSION 100 ML IV SCH ×2 (11:34→17:02)
[2016-11-05 11:59] LABS: HEMATOCRIT 37.9 % (38.0-47.0); HEMOGLOBIN 13.4 g/dL (12.6-16.3)
[2016-11-05 15:12] LABS: CALCULATED OXYGEN SATURATION 98 % (92-95); O2 CONCENTRATIION 40 % (0-100)
--- NOTE | 2016-11-05 15:33 | SOAPPROG ---
SOAP Progress Note Assessment/Plan: See dictated consult note (# [id number]). Objective: Vital Signs Temp Pulse Resp BP Pulse Ox 37.9 C 84 18 100/73 98 11/05/16 12:00 11/05/16 15:19 11/05/16 15:19 11/05/16 15:00 11/05/16 15:19 Microbiology 11/05/16 06:45 Gram Stain - Final Other - Aspirate Laboratory Results 11/05/16 11:50 11/05/16 08:24 11/04/16 11/05/16 11/06/16 05:59 05:59 05:59 Intake Total 2220 1171 Output Total 200 866 Balance 2020 305 PT 13.9 SEC (12.0-15.0) 11/05/16 08:24 INR 1.08 (0.83-1.16) 11/05/16 08:24 ICD10 Worksheet Patient Problems: Problems Problem Status Onset Elevated troponin Acute Hyponatremia Acute Kidney stone Acute Renal failure Acute Respiratory failure Acute Septic shock Acute UTI (urinary tract infection) Acute Urinary tract obstruction by kidney stone Acute
--- NOTE | 2016-11-05 16:08 | WOCRNPDOC ---
WOCR[facility] Advanced Assessment Note - Skin Integrity Problem, Advanced Assess Gluteal Cleft Dermatitis Dressing Type: Allevyn Life Integumentary Issue Intervention: Dressing Removed, Barrier Cream Applied ( Calazime) Yadira Wound Tissue: Erythema, Macerated Wound Bed Color: [place], Yellow Wound Bed Constitution: Smooth Tissue, Loose Slough Site Measurement - Head-to-Toe Length X Width X Depth (cm): 6x0.2x0.1 Skin Integrity Problem Comment: Moderate/Severe intertrigenous dermatitis. No pressure injury present. Treat with Calazime. Wound care will sign off. Lynn WILSON in room for care. Pannus Dressing Type: Interdry Dressing Description: Clean/Dry, Intact Skin Integrity Problem Comment: Moisture associated dermatitis between all skin folds on pannus and extending into groin. No satellite lesions. Continue care with interdry sheets and apply Calazime between groin skin folds. Wound care will not follow.
--- NOTE | 2016-11-05 16:10 | GCON ---
[f rep st] CONSULTATION UROLOGY CONSULTATION DATE OF CONSULTATION: 11/05/2016 PHYSICIAN REQUESTING CONSULTATION: Hospitalist Service. REASON FOR CONSULTATION: Obstructing urinary tract calculus with septic shock. HISTORY: This is a 56-year-old woman who presented to the emergency room early this morning and was found to be in septic shock. The patient has been admitted and undergone emergent treatment with antibiotics, intravenous vasopressors, intubation, and nephrostomy tube placement. This patient started feeling poorly on evening, according to the patient's significant other. All of this history is obtained from the patient' s significant other as the patient is currently intubated and sedated. She underwent a CT scan for evaluation of left parotid swelling last . She soon afterwards began to feel poorly with generalized malaise, possible fevers, diffuse abdominal pain, overwhelming fatigue, and significant shortness of breath. She finally presented to the emergency room early this morning after she continued to worsen. According to the significant other, the patient does not have any history of kidney stones to his knowledge. PAST MEDICAL HISTORY: Untreated hypothyroidism. PAST SURGICAL HISTORY: Cholecystectomy. ADMISSION MEDICATIONS: Albuterol MDI p.r.n. MEDICAL ALLERGIES: None known. FAMILY HISTORY: Noncontributory. No known history of kidney stones to the boyfriend's knowledge. SOCIAL HISTORY: The patient is a partnered with her significant other and lives in the [place] area. She apparently does not use tobacco nor alcohol products. She works at an [employer] center in [place]. REVIEW OF SYSTEMS: Unable to obtain at this time due to intubated and sedated condition. PHYSICAL EXAM: GENERAL: Obese white female lying supine in bed, currently intubated and sedated. VITAL SIGNS: Blood pressure 100/73, pulse 84, respirations 18, oxygen saturation 90% on 40% FiO2. Most recent temperature 37.9 at noon, which is the maximum temperature since presentation. Height 5 feet 2 inches, weight 136 kg. BMI 53. HEENT: Normocephalic, atraumatic, intubated. NECK: Supple. HEART: Regular rate. CHEST: Unlabored respiratory pattern (currently on ventilator). ABDOMEN: Severely obese, making it difficult to palpate any abnormal masses. No obvious tenderness appreciated. BACK: Left nephrostomy tube in place draining slightly blood-tinged urine. NEUROLOGIC: She is currently intubated and sedated. Unable to further assess. RADIOGRAPHIC STUDIES: Noncontrast abdominopelvic CT scan today: Upon my review , notable for mild left hydronephrosis and proximal hydroureter down to an approximately 7 x 7 x 8 mm long proximal ureteral calculus at roughly L4. No other significant stone disease is appreciated. LABORATORY: CBC this morning is 14,400, compared to 20,900 on admission at midnight this morning. Hemoglobin and hematocrit are relatively stable. Platelet count 58,000 this morning. Chemistry panel notable for CO2 of 14, BUN 63, creatinine 4.0. Diffusely elevated liver function tests. Creatinine this morning on admission was 4.3. According to review of chart, creatinine in September 2013 was 0.8. Admission urinalysis notable for 50-180 white blood cells, and red blood cells per high-power field with 2+ bacteria. Urine and blood cultures have been obtained with gram-negative rods already growing in both blood cultures. IMPRESSION: 1. Gram-negative fitz septic shock. 2. Obstructing left proximal ureteral calculus. This is likely the inciting factor for her development of septic shock, along with delayed presentation on the patient's behalf. Status post unremarkable left-sided nephrostomy tube placement earlier this morning. Appreciate Interventional Radiology's assistance in this matter. PLAN: I had an extended discussion with the patient's boyfriend today regarding her urologic issues. Once she has recovered from her septic episode, repeat CT imaging of the abdomen and pelvis will be obtained to determine whether the stone is still present, and then further discuss subsequent surgical care. The timeline for repeat imaging and consideration of surgery will be at least a couple weeks down the road, once she has fully recovered from her septic episode. She will need to maintain an indwelling nephrostomy tube in the meantime. I will continue to peripherally follow. Thank you for this consultation. /[id number]/MODL MTDD
--- NOTE | 2016-11-05 16:43 | HOSPPROG ---
Hospitalist Progress Note Assessment/Plan: * Septic shock - on 2 pressors (Levophed, vasopressin) * Obstructing kidney stone with infection -s/p nephrostomy tube - very difficult procedure - monitor HH -as anticipated - more septic after procedure -IV Zosyn + IV Vanco * Acute respiratory failure - now intubated * ARF - some improvement in UOP -d/w nephrology - high risk for needing acute dialysis * Abnormal LFT -suspect due to sepsis - continue to follow * Troponin elevation - likely strain due to sepsis * Thrombocytopenia - due to sepsis * Untreated hypothyroidism - consider start synthroid * Morbid obesity - BMI 53 Additional CC time spent - 40 minutes Subjective: now intubated post difficult nephrostomy tube placment, worsening sepsis - now 2 drugs Objective: Vital Signs Temp Pulse Resp BP Pulse Ox 37.3 C 91 20 89/63 L 99 11/05/16 16:00 11/05/16 16:00 11/05/16 16:00 11/05/16 16:00 11/05/16 16:00 Microbiology 11/05/16 06:45 Gram Stain - Final Other - Aspirate Laboratory Results 11/05/16 11:50 11/05/16 08:24 11/04/16 11/05/16 11/06/16 05:59 05:59 05:59 Intake Total 2220 1171 Output Total 200 936 Balance 2019 235 PT 13.9 SEC (12.0-15.0) 11/05/16 08:24 INR 1.08 (0.83-1.16) 11/05/16 08:24 - Physical Exam Constitutional: no apparent distress, appears nourished, not in pain Cardiovascular: regular rate and rhythym, no murmur, rub, or gallop Respiratory: no respiratory distress, no rales or rhonchi, clear to auscultation Gastrointestinal: normoactive bowel sounds, soft, non-tender abdomen, no palpable masses Skin: no rashes or abrasions, no fluctuance, no induration Neurologic: No AAOx3 Psychiatric: encephalopathic, other (intubated and sedated), No interacting appropriately, No agitated ICD10 Worksheet Patient Problems: Problems Problem Status Onset Elevated troponin Acute Hyponatremia Acute Kidney stone Acute Renal failure Acute Respiratory failure Acute Septic shock Acute UTI (urinary tract infection) Acute Urinary tract obstruction by kidney stone Acute
[2016-11-05 17:19] LABS: HEMATOCRIT 37.8 % (38.0-47.0); HEMOGLOBIN 13.1 g/dL (12.6-16.3)
[2016-11-05 17:31] LABS: ANION GAP 14 mEq/L (8-16); CALCIUM 7.3 mg/dL (8.5-10.4); CARBON DIOXIDE 14 mEq/l (22-31); CHLORIDE 102 mEq/L (97-110); CREATININE 3.3 mg/dL (0.6-1.0); GLOMERULAR FILTRATION RATE 15; GLUCOSE 158 mg/dL (70-100); POTASSIUM 4.2 mEq/L (3.5-5.2); SODIUM 130 mEq/L (134-144)
[2016-11-05] MEDS: CHLORHEXIDINE GLUCONATE 15 ML UDL PO SCH (20:16)
[2016-11-06] MEDS: PROPOFOL/EMULSION 100 ML IV SCH ×2 (00:18→06:37)
[2016-11-06 00:42] LABS: HEMOGLOBIN 13.1 g/dL (12.6-16.3)
[2016-11-06] MEDS: NS 1,000 ML IV SCH ×2 (02:10→20:08)
[2016-11-06] MEDS: NOREPINEPHRINE/NS 500 ML IV SCH (02:10)
[2016-11-06] MEDS: VASOPRESSIN/DEXTROSE 250 ML IV SCH (04:11)
[2016-11-06] MEDS: PIPERACILLIN/TAZO 2.25 GM/DEX 50 ML IV SCH ×4 (04:14→21:11)
[2016-11-06 05:36] LABS: % IMMATURE GRANULYOCYTES 1.7 % (0.0-1.1); ABSOLUTE IMMATURE GRANULOCYTES 0.29 10^3/uL (0.00-0.10); ADD DIFF? NO; ADD MORPH? NO; ADD SCAN? NO; ATYPICAL LYMPHOCYTE FLAG 40 (0-99); FRAGMENT RBC FLAG 0 (0-99); HEMATOCRIT 36.9 % (38.0-47.0); HEMOGLOBIN 12.6 g/dL (12.6-16.3); LEFT SHIFT FLG 60 (0-99); LIPEMIA HEMOLYSIS FLAG 90 (0-99); MEAN CELL HEMOGLOBIN 31.3 pg (27.9-34.1); MEAN CELL HEMOGLOBIN CONCENTR. 34.1 g/dL (32.4-36.7); MEAN CELL VOLUME 91.6 fL (81.5-99.8); MEAN PLATELET VOLUME 12.5 fL (8.7-11.7); PLATELET CLUMPS FLAG 20 (0-99); RED BLOOD CELL COUNT 4.03 10^6/uL (4.18-5.33); RED CELL DISTRIBUTION WIDTH 13.9 % (11.5-15.2)
[2016-11-06 05:39] LABS: PLATELET COUNT 43 10^3/uL (150-400)
[2016-11-06 05:42] LABS: BASE EXCESS -9.9 mEq/L (-2.5-2.5); BICARBONATE 16 mEq/L (22-26); IONIZED CALCIUM 1.13 MMOL/L (1.12-1.30); MEASURED OXYGEN SATURATION 92 % (92-95); PCO2 35 mmHg (34-38); PO2 73 mmHg (65-75); TCO2 17 mEq/L (23-27)
[2016-11-06 05:45] LABS: END TIDAL CO2 24; O2 CONCENTRATIION 40 % (0-100); P/F RATIO 183 RATIO; PATIENT RATE 17; PRESSURE SUPPORT 16; SIMV YES
[2016-11-06 05:55] LABS: ALANINE AMINOTRANSFERASE 52 IU/L (9-52); ALBUMIN 2.5 g/dL (3.5-5.0); ALKALINE PHOSPHATASE 97 IU/L (38-126); ANION GAP 13 mEq/L (8-16); ASPARTATE AMINOTRANSFERASE 50 IU/L (14-46); BILIRUBIN,TOTAL 4.5 mg/dL (0.1-1.4); BILIRUBIN-CONJUGATED 3.7 mg/dL (0.0-0.5); BILIRUBIN-UNCONJUGATED 0.8 mg/dL (0.0-1.1); CALCIUM 7.4 mg/dL (8.5-10.4); CARBON DIOXIDE 15 mEq/l (22-31); CHLORIDE 106 mEq/L (97-110); CREATININE 2.3 mg/dL (0.6-1.0); GLOMERULAR FILTRATION RATE 22; GLUCOSE 146 mg/dL (70-100); MAGNESIUM 2.2 mg/dL (1.6-2.3); POTASSIUM 3.7 mEq/L (3.5-5.2); SODIUM 134 mEq/L (134-144); TOTAL PROTEIN 5.2 g/dL (6.3-8.2)
[2016-11-06 06:14] LABS: PLATELET ESTIMATE DECREASED (ADEQ)
[2016-11-06] MEDS ORDERED: POTASSIUM Cl (KCl) 50 ML IV ONE ×3 (06:23→19:38)
[2016-11-06] MEDS: CHLORHEXIDINE GLUCONATE 15 ML UDL PO SCH (08:24)
[2016-11-06] MEDS ORDERED: FAMOTIDINE 20 MG/NACL 50 ML IV SCH (09:00)
[2016-11-06] MEDS: ALBUTEROL 200 PUFFS/18 GM MDI IH PRN ×2 (09:14→17:49)
[2016-11-06] MEDS: FLUTICASONE/SALMETER 250/50MCG DISKUS IH SCH ×2 (11:24→20:38)
--- NOTE | 2016-11-06 11:54 | SOAPPROG ---
REAGAN Progress Note Assessment/Plan: Assessment:Plan: CHRIS-acute kidney injury -due to ATN -obstructed pyelonephritis -now status post percutaneous nephrostomy -creatinine down from 3.3 to 2.3 -lytes okay -appears to be recovering nicely -no indications for Hd, which was discussed with patient and -will follow ID-gnr urosepsis -remains on pressors -obstructed L collecting system -CPM with Abx Nephrolithiasis-perc -management per Urology 11/06/16 11:51 Subjective: awake, achy, cough Objective: Vital Signs Temp Pulse Resp BP Pulse Ox 36.6 C 80 16 100/73 97 11/06/16 07:41 11/06/16 11:25 11/06/16 11:25 11/06/16 11:00 11/06/16 11:25 Microbiology 11/05/16 06:45 Gram Stain - Final Other - Aspirate Laboratory Results 11/06/16 05:15 11/06/16 05:15 11/05/16 11/06/16 11/07/16 05:59 05:59 05:59 Intake Total 2220 5802.3 254.6 Output Total 200 2136 Balance 2020 3666.3 254.6 PT 13.9 SEC (12.0-15.0) 11/05/16 08:24 INR 1.08 (0.83-1.16) 11/05/16 08:24 Physical Exam - Physical Exam General Appearance: alert, moderate distress, obese EENT: normal ENT inspection Neck: normal inspection Respiratory: decreased breath sounds (throughout) Cardiac/Chest: regular rate, rhythm, No diastolic murmur, No systolic murmur Abdomen: normal bowel sounds, non-tender, soft, distended, No hepatomegaly, No splenomegaly Skin: normal color, warm/dry Extremities: No swelling Neuro/Psych: normal mood/affect, other (tired, fatigued) ICD10 Worksheet Patient Problems: Problems Problem Status Onset Elevated troponin Acute Hyponatremia Acute Kidney stone Acute Renal failure Acute Respiratory failure Acute Septic shock Acute UTI (urinary tract infection) Acute Urinary tract obstruction by kidney stone Acute
[2016-11-06 12:13] LABS: POTASSIUM 3.7 mEq/L (3.5-5.2)
--- NOTE | 2016-11-06 12:57 | SOAPPROG ---
SOAP Progress Note Assessment/Plan: Assessment: 56 yo F admitted for septic shock presumed 2/2 infected left ureteral calculus, now s/p left nephrostomy POD #1. UOP improving. Bag clearing. H&H stable yesterday, down slightly this am. No other evidence of active bleeding; hemodynamically stable with decreasing pressor requirement this am. Plan: 1. Follow-up am H&H. 2. Will defer to Urology for management of left ureteral calculus. 3. Recommend routine nephrostomy catheter exchange in 10-12 weeks, if the catheter is still needed at that time. Thank you for the opportunity to assist in the care of Ms. Tim. 11/06/16 15:53 11/06/16 16:02 11/06/16 16:14 Subjective: Seen and examined this am. Sedated, intubated. Decreasing pressor requirement and increasing nephrostomy output overnight, per nurse. Objective: Vital Signs Temp Pulse Resp BP Pulse Ox 36.8 C 76 20 90/62 L 99 11/06/16 12:00 11/06/16 12:00 11/06/16 12:00 11/06/16 12:00 11/06/16 12:00 Microbiology 11/05/16 06:45 Gram Stain - Final Other - Aspirate Laboratory Results 11/06/16 05:15 11/06/16 11:49 11/05/16 11/06/16 11/07/16 05:59 05:59 05:59 Intake Total 2220 5802.3 254.6 Output Total 200 2136 Balance 2019 3666.3 254.6 PT 13.9 SEC (12.0-15.0) 11/05/16 08:24 INR 1.08 (0.83-1.16) 11/05/16 08:24 Gen: Sedated, critically ill Heart: RRR Lungs: Equal excursions Abd: Obese, soft, NT, left nephrostomy in place, bag contains 20 mL dark yellow urine, no clots MSK: No CCE Pulses: 2+ bilat DP ICD10 Worksheet Patient Problems: Problems Problem Status Onset Elevated troponin Acute Hyponatremia Acute Kidney stone Acute Renal failure Acute Respiratory failure Acute Septic shock Acute UTI (urinary tract infection) Acute Urinary tract obstruction by kidney stone Acute
--- NOTE | 2016-11-06 15:26 | PDINTPN ---
[employer] And Water Tester Progress Note Assessment/Plan: Assessment/plan: 56 F admitted with respiratory distress, dysuria, and flank pain found to have infected kidney stone and septic shock. She was intubated in the ED for airway protection while she went for a nephrostomy tube. Blood cultures grew E. Coli. * Septic shock 2/2 infected stone. Significant improvement with pressors now off. E.coli covered with current abx, can probably dc vanco. * Renal stone- will eventually require removal or lithotripsy. Defer to urology. Nephrostomy tube remains * CHRIS- improved with adequate UOP and falling creatinine from 4.0 to 2.3 * Acute respiratory failure- stable and able to extubate this AM. Some cough and wheeze which is either asthma or IVF resuscitation. * Asthma- started albuterol and Advair (outpatient meds). Asthma is usually well controlled per family. If no improvement will consider repeat CXR, BNP, and diuresis * Thrombocytopenia- presumed related to sepsis so should recover without intervention. No transfusion in absence of procedure or active bleeding. Subjective: Stable overnight with decreasing pressor requirements and minimal vent support. Objective: Vital Signs Temp Pulse Resp BP Pulse Ox 36.8 C 78 20 90/49 L 100 11/06/16 14:00 11/06/16 15:00 11/06/16 15:00 11/06/16 15:00 11/06/16 15:00 Microbiology 11/05/16 06:45 Gram Stain - Final Other - Aspirate Laboratory Results 11/06/16 05:15 11/06/16 11:49 11/05/16 11/06/16 11/07/16 05:59 05:59 05:59 Intake Total 2220 5802.3 254.6 Output Total 200 2136 Balance 2019 3666.3 254.6 PT 13.9 SEC (12.0-15.0) 11/05/16 08:24 INR 1.08 (0.83-1.16) 11/05/16 08:24 Physical Exam - Physical Exam General Appearance: alert, obese, other (though sedated on vent) EENT: PERRL/EOMI Neck: non-tender Respiratory: decreased breath sounds, wheezing, No respiratory distress, No accessory muscle use Cardiac/Chest: regular rate, rhythm, No edema Abdomen: non-tender, soft, No distended Skin: normal color, warm/dry Lymphatic: no adenopathy Extremities: No pedal edema Neuro/Psych: alert, cognition abnormalities, other (sedated on vent) ICD10 Worksheet Patient Problems: Problems Problem Status Onset Elevated troponin Acute Hyponatremia Acute Kidney stone Acute Renal failure Acute Respiratory failure Acute Septic shock Acute UTI (urinary tract infection) Acute Urinary tract obstruction by kidney stone Acute
--- NOTE | 2016-11-06 17:24 | HOSPPROG ---
Hospitalist Progress Note Assessment/Plan: * Septic shock - 2 pressors (Levophed, vasopressin) - weaning off -E.coli - urinary source -IV Zosyn * Obstructing kidney stone with infection -s/p nephrostomy tube -per urology - discharge with nephrostomy tube in place -f/u few weeks for repeat imaging and possible surgical stone extraction * Acute respiratory failure - now extubated * ARF - improving * Abnormal LFT -suspect due to sepsis -check abd US * Troponin elevation - likely strain due to sepsis * Thrombocytopenia - due to sepsis * Untreated hypothyroidism - consider start synthroid * Morbid obesity - BMI 53 Subjective: Awake and talking post extubation, no complaints. Happy to be better Objective: Vital Signs Temp Pulse Resp BP Pulse Ox 36.6 C 84 22 H 94/64 L 97 11/06/16 15:51 11/06/16 16:22 11/06/16 16:22 11/06/16 16:22 11/06/16 16:22 Microbiology 11/05/16 06:45 Gram Stain - Final Other - Aspirate Laboratory Results 11/06/16 05:15 11/06/16 11:49 11/05/16 11/06/16 11/07/16 05:59 05:59 05:59 Intake Total 2220 5802.3 254.6 Output Total 200 2136 1945 Balance 2019 3666.3 -1690.4 PT 13.9 SEC (12.0-15.0) 11/05/16 08:24 INR 1.08 (0.83-1.16) 11/05/16 08:24 d/w Dr. Campuzano - ICU rounds - over improving - extubate today - Physical Exam Constitutional: no apparent distress, appears nourished, not in pain Cardiovascular: regular rate and rhythym, no murmur, rub, or gallop Respiratory: no respiratory distress, no rales or rhonchi, clear to auscultation Skin: no rashes or abrasions, no fluctuance, no induration Neurologic: AAOx3, sensation intact bilaterally Psychiatric: interacting appropriately, not anxious, not encephalopathic, thought process linear ICD10 Worksheet Patient Problems: Problems Problem Status Onset Elevated troponin Acute Hyponatremia Acute Kidney stone Acute Renal failure Acute Respiratory failure Acute Septic shock Acute UTI (urinary tract infection) Acute Urinary tract obstruction by kidney stone Acute
[2016-11-06 18:09] LABS: POTASSIUM 3.8 mEq/L (3.5-5.2)
--- NOTE | 2016-11-06 18:23 | ASMTCMCOM ---
CM Note CM Note Notes: 56 year old female admitted for septic shock-urinary, ARF, obstructing stone. Has a Hx of Hypothyroid untreated and nepatic dysfunction. Patient was to be extubated today. Case Management to follow-for possible discharge needs. Date Signed: 11/06/2016 06:22 PM Electronically Signed By:Monique Coy
[2016-11-06] MEDS ORDERED: ALBUTEROL 3 ML DEYVIAL ONE (20:26)
[2016-11-06] MEDS: ALBUTEROL 3 ML DEYVIAL IH PRN (20:38)
[2016-11-06] MEDS: ACETAMINOPHEN 325 MG TAB PO PRN (21:11)
[2016-11-07] MEDS ORDERED: POTASSIUM Cl (KCl) 50 ML IV ONE ×4 (02:40→18:48)
[2016-11-07] MEDS ORDERED: POTASSIUM Cl (KCl) 20 MEQ/50 ML BAG IV ONE (02:56)
[2016-11-07] MEDS ORDERED: POTASSIUM Cl (KCl) 10 MEQ/50 ML BAG IV ONE (02:57)
[2016-11-07] MEDS: PIPERACILLIN/TAZO 2.25 GM/DEX 50 ML IV SCH ×2 (04:00→08:55)
[2016-11-07 04:53] LABS: POTASSIUM 3.6 mEq/L (3.5-5.2)
[2016-11-07 05:31] LABS: IONIZED CALCIUM 1.21 MMOL/L (1.12-1.30)
[2016-11-07 05:33] LABS: ADD DIFF? YES; ADD MORPH? NO; ADD SCAN? NO; ATYPICAL LYMPHOCYTE FLAG 60 (0-99); FRAGMENT RBC FLAG 0 (0-99); HEMATOCRIT 34.2 % (38.0-47.0); LEFT SHIFT FLG 30 (0-99); LIPEMIA HEMOLYSIS FLAG 90 (0-99); MEAN CELL HEMOGLOBIN 31.6 pg (27.9-34.1); MEAN CELL HEMOGLOBIN CONCENTR. 35.1 g/dL (32.4-36.7); MEAN PLATELET VOLUME 11.9 fL (8.7-11.7); PLATELET CLUMPS FLAG 10 (0-99); PLATELET COUNT 50 10^3/uL (150-400); RED CELL DISTRIBUTION WIDTH 13.8 % (11.5-15.2)
[2016-11-07 06:01] LABS: ALANINE AMINOTRANSFERASE 48 IU/L (9-52); ALBUMIN 2.2 g/dL (3.5-5.0); ALKALINE PHOSPHATASE 102 IU/L (38-126); ANION GAP 9 mEq/L (8-16); ASPARTATE AMINOTRANSFERASE 44 IU/L (14-46); BILIRUBIN,TOTAL 4.3 mg/dL (0.1-1.4); BILIRUBIN-CONJUGATED 2.7 mg/dL (0.0-0.5); BILIRUBIN-UNCONJUGATED 1.6 mg/dL (0.0-1.1); CARBON DIOXIDE 19 mEq/l (22-31); CHLORIDE 114 mEq/L (97-110); CREATININE 1.5 mg/dL (0.6-1.0); GLOMERULAR FILTRATION RATE 36; GLUCOSE 75 mg/dL (70-100); MAGNESIUM 2.6 mg/dL (1.6-2.3); POTASSIUM 3.9 mEq/L (3.5-5.2); SODIUM 142 mEq/L (134-144); TOTAL PROTEIN 4.8 g/dL (6.3-8.2)
[2016-11-07] MEDS: ACETAMINOPHEN 325 MG TAB PO PRN (06:31)
[2016-11-07 06:40] LABS: PLATELET ESTIMATE DECREASED (ADEQ)
[2016-11-07] MEDS ORDERED: FAMOTIDINE 20 MG TAB PO SCH (09:00)
[2016-11-07] MEDS: FLUTICASONE/SALMETER 250/50MCG DISKUS IH SCH ×2 (09:05→20:46)
[2016-11-07] MEDS ORDERED: FUROSEMIDE 20 MG/2 ML VIAL IVP ONE (09:17)
[2016-11-07] MEDS: ALBUTEROL 3 ML DEYVIAL IH PRN ×3 (09:18→14:05)
[2016-11-07 13:04] LABS: POTASSIUM 3.6 mEq/L (3.5-5.2)
[2016-11-07] MEDS: OXYCODONE/APAP 5/325 TAB PO PRN (13:12)
[2016-11-07] MEDS: ceFAZolin 2 GM/DEXTROSE 100 ML IV SCH ×2 (13:20→21:59)
--- NOTE | 2016-11-07 13:34 | PDINTPN ---
Apparatus Lineman Progress Note Assessment/Plan: Assessment/plan: 56 F admitted with respiratory distress, dysuria, and flank pain found to have infected kidney stone and septic shock. She was intubated in the ED for airway protection while she went for a nephrostomy tube. Blood cultures grew E. Coli. * Septic shock 2/2 infected stone. Significant improvement with pressors now off. E.coli covered with current abx, can probably dc vanco. * Renal stone- will eventually require removal or lithotripsy. Defer to urology. Nephrostomy tube will remain through dc. * CHRIS- improved with adequate UOP and falling creatinine from 4.0 to 2.3 * Acute respiratory failure- stable and able to extubate this AM. Still with cough which she says is not like previously controlled asthma. Lasix 20 mg given this am. * Asthma- started albuterol and Advair (outpatient meds). Trial of diuretics today. Avoiding systemic steroids. * Thrombocytopenia- presumed related to sepsis; and improving 11/07/16 13:32 Subjective: Extubated 11/06. C/o SOB, wheezing Objective: Vital Signs Temp Pulse Resp BP Pulse Ox 36.2 C 90 23 H 111/70 98 11/07/16 12:00 11/07/16 13:00 11/07/16 13:00 11/07/16 13:00 11/07/16 13:00 Microbiology 11/05/16 06:45 Gram Stain - Final Other - [facility] Laboratory Results 11/07/16 05:15 11/07/16 12:00 11/06/16 11/07/16 11/08/16 05:59 05:59 05:59 Intake Total 5802.3 3580.2 500 Output Total 2136 5745 1950 Balance 3666.3 -2164.8 -1450 PT 13.9 SEC (12.0-15.0) 11/05/16 08:24 INR 1.08 (0.83-1.16) 11/05/16 08:24 Physical Exam - Physical Exam General Appearance: alert, no apparent distress, obese EENT: PERRL/EOMI Neck: supple Respiratory: wheezing, prolonged expiration, No respiratory distress, No accessory muscle use Cardiac/Chest: normal peripheral pulses, regular rate, rhythm, No edema Abdomen: non-tender, soft, No distended Skin: normal color, warm/dry Lymphatic: no adenopathy Extremities: No pedal edema Neuro/Psych: alert, normal mood/affect, oriented x 3 ICD10 Worksheet Patient Problems: Problems Problem Status Onset Elevated troponin Acute Hyponatremia Acute Kidney stone Acute Renal failure Acute Respiratory failure Acute Septic shock Acute UTI (urinary tract infection) Acute Urinary tract obstruction by kidney stone Acute
--- NOTE | 2016-11-07 13:42 | HOSPPROG ---
Hospitalist Progress Note Assessment/Plan: * Septic shock - 2 pressors (still on intermittent Levophed, now off vasopressin) - weaning off if possible. Will decrease IVF to 75ml/hr. May be able to wean off as well. -E.coli - urinary source -change IV Zosyn to Cefazolin based on sensitivities. D/W pharmacy * Obstructing kidney stone with infection -s/p nephrostomy tube -per urology - discharge with nephrostomy tube in place -f/u few weeks for repeat imaging and possible surgical stone extraction * Acute respiratory failure - now extubated: Will need to monitor fluids closely. Required lasix 20mg IV x 1 this morning. * ARF - improving * Abnormal LFT -suspect due to sepsis -check abd US * Troponin elevation - likely strain due to sepsis * Thrombocytopenia - due to sepsis, presume that this will gradually begin to improve. * Untreated hypothyroidism - consider start synthroid. Would not start until she is off pressors and more stable given cardiac strain * Morbid obesity - BMI 53 New patient to nj D/W multiple team members during team round. Cont ICU care total cct: 32 minutes Subjective: Feels better. Very weak. PT at bedside to help the patient sit up. No CP or SOB. Objective: Vital Signs Temp Pulse Resp BP Pulse Ox 36.2 C 90 23 H 111/70 98 11/07/16 12:00 11/07/16 13:00 11/07/16 13:00 11/07/16 13:00 11/07/16 13:00 Microbiology 11/05/16 06:45 Gram Stain - Final Other - [facility] Laboratory Results 11/07/16 05:15 11/07/16 12:00 11/06/16 11/07/16 11/08/16 05:59 05:59 05:59 Intake Total 5802.3 3580.2 500 Output Total 2136 5745 1950 Balance 3666.3 -2164.8 -1450 PT 13.9 SEC (12.0-15.0) 11/05/16 08:24 INR 1.08 (0.83-1.16) 11/05/16 08:24 - Physical Exam Constitutional: no apparent distress, appears nourished Eyes: PERRL, EOMI Ears, Nose, Mouth, Throat: moist mucous membranes Cardiovascular: regular rate and rhythym, No JVD, No edema Respiratory: no respiratory distress, reduced air movement, No clear to auscultation Gastrointestinal: soft, non-tender abdomen, No tenderness Skin: warm Musculoskeletal: generalized weakness Neurologic: AAOx3 Psychiatric: interacting appropriately, not anxious, not encephalopathic ICD10 Worksheet Patient Problems: Problems Problem Status Onset Elevated troponin Acute Hyponatremia Acute Kidney stone Acute Renal failure Acute Respiratory failure Acute Septic shock Acute UTI (urinary tract infection) Acute Urinary tract obstruction by kidney stone Acute
--- NOTE | 2016-11-07 13:47 | SOAPPROG ---
SOAP Progress Note Assessment/Plan: Assessment: CHRIS resolving nicely after relief of obstrustion E. Coli sepsis improved nephrolithiasis perc neph Plan: no HD needs continue therapies Renal signing off, available if needed 11/07/16 13:44 Subjective: tired spirits good denies nausea pain cp or sob Objective: Vital Signs Temp Pulse Resp BP Pulse Ox 36.2 C 90 23 H 111/70 98 11/07/16 12:00 11/07/16 13:00 11/07/16 13:00 11/07/16 13:00 11/07/16 13:00 Microbiology 11/05/16 06:45 Gram Stain - Final Other - [facility] Laboratory Results 11/07/16 05:15 11/07/16 12:00 11/06/16 11/07/16 11/08/16 05:59 05:59 05:59 Intake Total 5802.3 3580.2 500 Output Total 2136 5745 1950 Balance 3666.3 -2164.8 -1450 PT 13.9 SEC (12.0-15.0) 11/05/16 08:24 INR 1.08 (0.83-1.16) 11/05/16 08:24 Physical Exam - Physical Exam General Appearance: alert, obese Respiratory: rales, No rhonchi, No wheezing Cardiac/Chest: regular rate, rhythm, edema, No friction rub Abdomen: normal bowel sounds, non-tender, soft Skin: warm/dry Neuro/Psych: alert, normal mood/affect, oriented x 3 ICD10 Worksheet Patient Problems: Problems Problem Status Onset Elevated troponin Acute Hyponatremia Acute Kidney stone Acute Renal failure Acute Respiratory failure Acute Septic shock Acute UTI (urinary tract infection) Acute Urinary tract obstruction by kidney stone Acute
[2016-11-07] MEDS: POTASSIUM Cl (KCl) 50 ML IV SCH ×3 (14:30→15:58)
[2016-11-07 18:15] LABS: POTASSIUM 3.9 mEq/L (3.5-5.2)
--- NOTE | 2016-11-07 22:13 | GCON ---
[f rep st] CONSULTATION INFECTIOUS DISEASE CONSULTATION DATE OF CONSULTATION: 11/07/2016 REQUESTING PHYSICIAN: Cynthia Young MD. REASON FOR CONSULTATION: Sepsis due to E coli bacteremia. HISTORY OF PRESENT ILLNESS: The patient is a 56-year-old female with a past medical history of hypot hyroidism, who I am asked to see in consultation for sepsis associated with E coli bacteremia due to obstructing nephrolithiasis. Prior to admission, the patient developed the abrupt onset of lower abd ominal pain which subsequently radiated to the left flank. The pain was so severe that she had diffi culty walking down the stairs and then developed associated nausea and vomiting. This was accompanie d by shaking chills, although she did not note a prior fever. Evaluation in the emergency department showed hypotension, tachycardia, and hypoxemia. Imaging evaluation revealed an obstructing stone on the left and the patient noted concomitant dysuria. The patient underwent nephrostomy tube placemen t as management of her obstructing nephrolithiasis with accompanying sepsis. She was started empiric ally on antibiotic therapy with vancomycin and Zosyn. Blood cultures subsequently have grown E coli in all sets, and urine culture as well as nephrostomy culture have also shown E coli. The patient wa s transitioned from Zosyn to cefazolin earlier today based on susceptibility profile. She does not n ote prior history of urinary tract infection or kidney stones. She feels improved but still has sign ificant associated fatigue. No further nausea and vomiting. She initially required pressors for her hypotension and these have now been weaned off. Additionally, she showed significant thrombocytopen ia which has persisted. Given the above findings, I am now asked to assist in her ongoing management . PAST MEDICAL HISTORY: Hypothyroidism, obesity. PAST SURGICAL HISTORY: x2, treatment of endometriosis, cholecystectomy. CURRENT MEDICATIONS: Ancef 2 g IV q.8 hours, albuterol nebulizer as needed, Percocet as needed, Adva ir 1 puff twice daily. ALLERGIES: No known drug allergies. SOCIAL HISTORY: Patient does not smoke, drink alcohol or use drugs. FAMILY HISTORY: Mother with gallbladder cancer. REVIEW OF SYSTEMS: Outside that noted in the HPI, the remainder of a 10 system review is unremarkabl e. PHYSICAL EXAMINATION: VITAL SIGNS: Temperature 36.2, heart rate 92, respiratory rate 22, blood pres sure 107/62, oxygen saturation 94% on room air. GENERAL: Patient is morbidly obese, in no acute dis tress. She appears nontoxic. HEENT: There is no scleral icterus, conjunctival injection, or conjun ctival petechiae. Oropharynx shows no lesions with dry mucous membranes. There is no nasal discharg e. There is no tenderness over the frontal maxillary or mastoid area. NECK: Supple without palpabl e lymphadenopathy or thyromegaly. CHEST: Clear to auscultation bilaterally without adventitious david nds. Respiratory effort is normal. CARDIOVASCULAR: Regular rate and rhythm with a 2/6 systolic mur mur heard at the right upper sternal border. ABDOMEN: Soft, nontender, nondistended. There is no p alpable organomegaly. Bowel sounds are present. MUSCULOSKELETAL: There is no cyanosis, clubbing, o r edema. SKIN: No stigmata of endocarditis. Skin is warm and dry to touch. NEUROLOGIC: Patient i s alert and interacts appropriate with the examiner. Cranial nerves 2-12 are grossly intact. Sensat ion is grossly intact. LYMPHATICS: There are no cervical or supraclavicular nodes. LABORATORY DATA: White blood cell count 11.9, hematocrit 34.2, platelets 50, neutrophils 78%, bands 5%. Serum creatinine is 1.5 (peak of 4.3), bilirubin 4.3, conjugated bilirubin 2.7, AST 44, ALT 48, alkaline phosphatase 102, albumin 2.2. Urinalysis showed 50-182 red blood cells and 50-182 white blo od cells with 2+ epithelial cells and 2+ bacteria. Blood cultures x2 sets show E coli; urine sample and nephrostomy sample also showed growth of E coli. The isolate is resistant to ampicillin and levo floxacin with intermediate susceptibility to ampicillin sulbactam. Abdominal ultrasound shows hepato megaly with increased echogenicity without findings of hydronephrosis. CT of the abdomen and pelvis at time of admission showed an obstructing stone on the left with perinephric edema being present. IMPRESSION: Septic shock due to Escherichia coli bacteremia with obstructive nephrolithiasis status post nephrostomy placement: Septic shock has resolved and patient is no longer requiring pressors. Blood cultures and urine specimens including nephrostomy specimen have all shown Escherichia coli. T he patient has been transition from Zosyn to cefazolin based on susceptibility profile. RECOMMENDATIONS: 1. Agree with Ancef 2 g IV q.8 hours. 2. Follow clinical response to continued antibiotic therapy and nephrostomy placement. 3. Duration of antibiotic therapy dependent on course of nephrolithiasis. Anticipate 14 days of IV antibiotic therapy with need for suppressive antibiotics depending on if stone resolves or requires f urther intervention for resolution. Thank you for this consultation. We will continue to follow the patient with you. /[id number]/MODL
[2016-11-08 01:50] LABS: POTASSIUM 3.7 mEq/L (3.5-5.2)
[2016-11-08] MEDS ORDERED: POTASSIUM Cl (KCl) 50 ML IV ONE ×2 (01:59→05:42)
[2016-11-08] MEDS: OXYCODONE/APAP 5/325 TAB PO PRN ×3 (05:16→22:26)
[2016-11-08] MEDS: ceFAZolin 2 GM/DEXTROSE 100 ML IV SCH (05:17)
[2016-11-08 05:20] LABS: IONIZED CALCIUM 1.11 MMOL/L (1.12-1.30)
[2016-11-08 05:24] LABS: ADD DIFF? YES; ADD MORPH? NO; ADD SCAN? NO; ATYPICAL LYMPHOCYTE FLAG 90 (0-99); FRAGMENT RBC FLAG 0 (0-99); HEMATOCRIT 35.1 % (38.0-47.0); HEMOGLOBIN 12.2 g/dL (12.6-16.3); LEFT SHIFT FLG 40 (0-99); LIPEMIA HEMOLYSIS FLAG 90 (0-99); MEAN CELL HEMOGLOBIN CONCENTR. 34.8 g/dL (32.4-36.7); MEAN CELL VOLUME 89.3 fL (81.5-99.8); MEAN PLATELET VOLUME 11.6 fL (8.7-11.7); PLATELET CLUMPS FLAG 20 (0-99); PLATELET COUNT 72 10^3/uL (150-400); RED BLOOD CELL COUNT 3.93 10^6/uL (4.18-5.33); RED CELL DISTRIBUTION WIDTH 13.7 % (11.5-15.2)
[2016-11-08 05:39] LABS: ANION GAP 9 mEq/L (8-16); CARBON DIOXIDE 22 mEq/l (22-31); CHLORIDE 111 mEq/L (97-110); CREATININE 0.9 mg/dL (0.6-1.0); GLOMERULAR FILTRATION RATE > 60; GLUCOSE 90 mg/dL (70-100); MAGNESIUM 1.7 mg/dL (1.6-2.3); POTASSIUM 3.9 mEq/L (3.5-5.2); SODIUM 142 mEq/L (134-144)
[2016-11-08] MEDS ORDERED: MAGNESIUM SULF 1 GM/DEXTROSE 100 ML IV ONE (05:50)
[2016-11-08] MEDS ORDERED: CALCIUM GLUCONATE 50 ML IV ONE (06:06)
[2016-11-08 06:11] LABS: PLATELET ESTIMATE DECREASED (ADEQ)
[2016-11-08] MEDS ORDERED: FUROSEMIDE 20 MG/2 ML VIAL IVP ONE (08:56)
--- NOTE | 2016-11-08 09:31 | PCMIDPN ---
Assessment/Plan: #Sepsis --> E coli bacteremia --> L pyelonephritis -->obstruction. Now with L nephrostomy. Overall improved - off pressors, improved leukocytosis, improved thrombocytopenia, improved hyperbilirubinemia ; all samples grew E coli resistant to levofloxacin and ampicillin. --continue cefazolin, decrease dose to 1gm IV q8h --plan 14 days of IV antibiotics in light that organism resistant to levofloxacin, 11/19 stop date --new literature suggests repeat blood cultures in the setting of gram-negative fitz bacteremia are not helpful. Will not repeat blood cultures unless clinically indicated. med, Abx #05/15 cefazolin 2gm IV q8hr Subjective: Patient is feeling well. Describes still being in a "daze" due to severe illness. no itching, rash or diarrhea Objective: Vital Signs Temp Pulse Resp BP Pulse Ox 36.9 C 89 25 H 113/70 95 11/08/16 07:56 11/08/16 07:56 11/08/16 07:56 11/08/16 07:56 11/08/16 07:56 Microbiology 11/05/16 06:45 Gram Stain - Final Other - [facility] Laboratory Results 11/08/16 05:00 11/08/16 05:00 11/07/16 11/08/16 11/09/16 05:59 05:59 05:59 Intake Total 3580.2 3114 Output Total 5745 6350 Balance -2164.8 -2407 - Physical Exam General Appearance: alert, no apparent distress, obese EENT: pale conjunctiva, other (Swelling of L parotid gland), No scleral icterus Respiratory: other ( Decreased breath sounds in the bases), No accessory muscle use Neck: supple Cardiac/Chest: regular rate, rhythm Extremities: No pedal edema Abdomen: non-tender, soft Pelvic Exam: cohen (charly urine), other (L nephrostomy - also charly urine) Skin: No rash Neuro/Psych: alert, normal mood/affect, oriented x 3 - Line/s other Lines: other (L TLC subclavian), No drainage, No erythema - Time Spent With Patient Time Spent with Patient: greater than 35 minutes Time Spent with Patient: Greater than 35 minutes spent on this patients care, greater than 50% of time spent counseling, educating, and coordinating care regarding the above mentioned plan. ICD10 Worksheet Patient Problems: Problems Problem Status Onset Elevated troponin Acute Hyponatremia Acute Kidney stone Acute Renal failure Acute Respiratory failure Acute Septic shock Acute UTI (urinary tract infection) Acute Urinary tract obstruction by kidney stone Acute
[2016-11-08] MEDS: FLUTICASONE/SALMETER 250/50MCG DISKUS IH SCH ×2 (09:33→20:46)
--- NOTE | 2016-11-08 11:20 | HOSPPROG ---
Hospitalist Progress Note Assessment/Plan: Septic shock septic physiology has resolved -E.coli - urinary source -change IV Zosyn to Cefazolin based on sensitivities. Obstructing kidney stone with infection -s/p nephrostomy tube -per urology - discharge with nephrostomy tube in place -f/u few weeks for repeat imaging and possible surgical stone extraction Acute respiratory failure - now extubated: Will need to monitor fluids closely. Required lasix 20mg IV x 1 this morning. crackles c/w vol overload from volume resuscitation lasix prn ARF - improving Abnormal LFT -suspect due to sepsis -check abd US Troponin elevation - likely strain due to sepsis Thrombocytopenia - due to sepsis, presume that this will gradually begin to improve. Untreated hypothyroidism - consider start synthroid. Would not start until she is off pressors and more stable given cardiac strain Morbid obesity - BMI 53 cohen: remove today after lasix has worn off proph: lmwh Subjective: off pressors. case d.w dr arrington Objective: Vital Signs Temp Pulse Resp BP Pulse Ox 36.9 C 89 12 105/73 95 11/08/16 07:56 11/08/16 10:00 11/08/16 10:00 11/08/16 10:00 11/08/16 10:00 Microbiology 11/05/16 06:45 Gram Stain - Final Other - [facility] Laboratory Results 11/08/16 05:00 11/08/16 05:00 11/07/16 11/08/16 11/09/16 05:59 05:59 05:59 Intake Total 3580.2 3114 Output Total 5745 6350 1400 Balance -2164.8 -3236 -1400 PT 13.9 SEC (12.0-15.0) 11/05/16 08:24 INR 1.08 (0.83-1.16) 11/05/16 08:24 - Physical Exam Constitutional: no apparent distress, appears nourished Eyes: PERRL, anicteric sclera Ears, Nose, Mouth, Throat: moist mucous membranes, hearing normal Cardiovascular: regular rate and rhythym, no murmur, rub, or gallop Respiratory: other (crackles b/l 1/2 up lung [place]) Gastrointestinal: normoactive bowel sounds, soft, non-tender abdomen Genitourinary: cohen in urethra Skin: warm Musculoskeletal: full muscle strength, no muscle tenderness ICD10 Worksheet Patient Problems: Problems Problem Status Onset Elevated troponin Acute Hyponatremia Acute Kidney stone Acute Renal failure Acute Respiratory failure Acute Septic shock Acute UTI (urinary tract infection) Acute Urinary tract obstruction by kidney stone Acute
[2016-11-08] MEDS ORDERED: ENOXAPARIN 40 MG/0.4 ML SYR SC SCH (11:30)
--- NOTE | 2016-11-08 13:38 | PDINTPN ---
Supervisor Tellers Progress Note Assessment/Plan: Assessment/plan: 56 F admitted with respiratory distress, dysuria, and flank pain found to have infected kidney stone and septic shock. She was intubated in the ED for airway protection while she went for a nephrostomy tube. Blood cultures grew E. Coli. * Septic shock 2/2 infected stone. Significant improvement with pressors now off. E.coli covered with current abx. ID involved * Renal stone- will eventually require removal or lithotripsy. Defer to urology. Nephrostomy tube will remain through dc. * CHRIS- improved with adequate UOP * Acute respiratory failure- stable and able to extubate. Responded well to low dose lasix though incomplete. Additional lasix given today as one time. . * Asthma- started albuterol and Advair (outpatient meds). Avoiding systemic steroids. * Thrombocytopenia- presumed related to sepsis; and improving * OK for floor- discussed with Dr. Bo Subjective: continues to improve Objective: Vital Signs Temp Pulse Resp BP Pulse Ox 36.4 C 90 21 H 115/59 L 93 11/08/16 11:44 11/08/16 11:44 11/08/16 11:44 11/08/16 11:44 11/08/16 11:44 Microbiology 11/05/16 06:45 Gram Stain - Final Other - [facility] Laboratory Results 11/08/16 05:00 11/08/16 05:00 11/07/16 11/08/16 11/09/16 05:59 05:59 05:59 Intake Total 3580.2 3114 Output Total 5745 6350 1800 Balance -2164.8 -3236 -1800 PT 13.9 SEC (12.0-15.0) 11/05/16 08:24 INR 1.08 (0.83-1.16) 11/05/16 08:24 Physical Exam - Physical Exam General Appearance: WD/WN, alert, obese EENT: PERRL/EOMI Neck: supple Respiratory: lungs clear, normal breath sounds, No respiratory distress Cardiac/Chest: regular rate, rhythm, No edema Abdomen: non-tender, soft, No distended Skin: normal color, warm/dry Lymphatic: no adenopathy Extremities: No pedal edema Neuro/Psych: alert, normal mood/affect, oriented x 3 ICD10 Worksheet Patient Problems: Problems Problem Status Onset Elevated troponin Acute Hyponatremia Acute Kidney stone Acute Renal failure Acute Respiratory failure Acute Septic shock Acute UTI (urinary tract infection) Acute Urinary tract obstruction by kidney stone Acute
[2016-11-09] MEDS: ENOXAPARIN 60 MG/0.6 ML SYR SC SCH ×2 (09:20→21:38)
[2016-11-09] MEDS: FLUTICASONE/SALMETER 250/50MCG DISKUS IH SCH ×2 (10:28→21:36)
[2016-11-09] MEDS ORDERED: ALTEPLASE 2 MG VIAL IVP PRN (11:28)
[2016-11-09] MEDS: ALBUTEROL 3 ML DEYVIAL IH PRN (11:30)
--- NOTE | 2016-11-09 11:34 | PCMIDPN ---
Assessment/Plan: #Sepsis --> E coli bacteremia --> L pyelonephritis -->obstruction. Now with L nephrostomy. Much improved! Sepsis resolved --continue cefazolin 1gm IV q8h --plan 14 days of IV cefazolin 3gm continuous infusion or ceftriaxone 1gm IV daily in light that organism resistant to levofloxacin, 11/19 stop date --Will not repeat blood cultures unless clinically indicated. --PICC line today, DC R IJ --stone to be removed as outpatient, may need suppressive antibiotics if stone removal after completion of IV antibiotics # Increased SOB, nl Sats --check CXR med, Abx #06/15 cefazolin 1gm IV q8hr micro 11/05 blood, urine, L kidney: E coli resistant to levofloxacin and ampicillin Subjective: still feels quite weak Increased SOB today, persistent productive cough Transferred to general med floor yesterday Objective: Vital Signs Temp Pulse Resp BP Pulse Ox 36.6 C 95 18 140/72 H 94 11/09/16 08:55 11/09/16 08:55 11/09/16 08:55 11/09/16 08:55 11/09/16 08:55 Microbiology 11/05/16 06:45 Gram Stain - Final Other - [facility] Laboratory Results 11/08/16 05:00 11/08/16 05:00 11/08/16 11/09/16 11/10/16 05:59 05:59 05:59 Intake Total 3114 550 400 Output Total 6350 2975 400 Balance -3236 -2425 0 General Appearance: alert, no apparent distress, obese EENT: pale conjunctiva, Swelling of L parotid gland, No scleral icterus Respiratory: mildly dyspneic, no accessory muscle use Decreased breath sounds in the bases Neck: supple, R IJ TLC Cardiac/Chest: regular rate, rhythm Extremities: No pedal edema Abdomen: non-tender, soft, NT; L nephrostomy - also charly urine Skin: No rash Neuro/Psych: alert, normal mood/affect, oriented x 3 ICD10 Worksheet Patient Problems: Problems Problem Status Onset Elevated troponin Acute Hyponatremia Acute Kidney stone Acute Renal failure Acute Respiratory failure Acute Septic shock Acute UTI (urinary tract infection) Acute Urinary tract obstruction by kidney stone Acute
--- NOTE | 2016-11-09 13:04 | SOAPPROG ---
SOAP Progress Note Assessment/Plan: Assessment: sepsis with left obstructing ureteral stone Plan: Continue current care and antibiotics. Will see patient in office with CT for stone planning once she is discharged. 11/09/16 13:02 Subjective: Improving Objective: Vital Signs Temp Pulse Resp BP Pulse Ox 36.6 C 95 18 140/72 H 94 11/09/16 08:55 11/09/16 08:55 11/09/16 08:55 11/09/16 08:55 11/09/16 08:55 Microbiology 11/05/16 06:45 Gram Stain - Final Other - [facility] Laboratory Results 11/08/16 05:00 11/08/16 05:00 11/08/16 11/09/16 11/10/16 05:59 05:59 05:59 Intake Total 3114 550 400 Output Total 6350 2975 400 Balance -3236 -2425 0 PT 13.9 SEC (12.0-15.0) 11/05/16 08:24 INR 1.08 (0.83-1.16) 11/05/16 08:24 Physical Exam - Physical Exam General Appearance: alert, no apparent distress Respiratory: normal breath sounds, No respiratory distress Cardiac/Chest: regular rate, rhythm Abdomen: non-tender, other (neph tube draining clear urine on left), No distended Skin: normal color, warm/dry Neuro/Psych: no motor/sensory deficits, alert ICD10 Worksheet Patient Problems: Problems Problem Status Onset Elevated troponin Acute Hyponatremia Acute Kidney stone Acute Renal failure Acute Respiratory failure Acute Septic shock Acute UTI (urinary tract infection) Acute Urinary tract obstruction by kidney stone Acute
[2016-11-09] MEDS: OXYCODONE/APAP 5/325 TAB PO PRN ×2 (13:22→21:37)
[2016-11-09] MEDS ORDERED: FUROSEMIDE 40 MG/4 ML VIAL IVP ONE (13:26)
--- NOTE | 2016-11-09 13:29 | HOSPPROG ---
Hospitalist Progress Note Assessment/Plan: Septic shock septic physiology has resolved -E.coli - urinary source -change IV Zosyn to Cefazolin based on sensitivities. Obstructing kidney stone with infection -s/p nephrostomy tube -per urology - discharge with nephrostomy tube in place -f/u few weeks for repeat imaging and possible surgical stone extraction Acute respiratory failure - still w crackles on exam suspect volume overload from volume resuscitation w sepsis lasix x 1 today ARF - improving Abnormal LFT -suspect due to sepsis -check abd US Troponin elevation - likely strain due to sepsis Thrombocytopenia - due to sepsis, presume that this will gradually begin to improve. Untreated hypothyroidism - consider start synthroid. Would not start until she is off pressors and more stable given cardiac strain Morbid obesity - BMI 53 cohen: removed 11/08 proph: lmwh at 60 bid given bmi > 50 Subjective: case d/w dr denise Objective: Vital Signs Temp Pulse Resp BP Pulse Ox 36.6 C 95 18 140/72 H 94 11/09/16 08:55 11/09/16 08:55 11/09/16 08:55 11/09/16 08:55 11/09/16 08:55 Microbiology 11/05/16 06:45 Gram Stain - Final Other - [facility] Laboratory Results 11/08/16 05:00 11/08/16 05:00 11/08/16 11/09/16 11/10/16 05:59 05:59 05:59 Intake Total 3114 550 710 Output Total 6350 2975 400 Balance -3236 -2425 310 PT 13.9 SEC (12.0-15.0) 11/05/16 08:24 INR 1.08 (0.83-1.16) 11/05/16 08:24 - Physical Exam Constitutional: no apparent distress, appears nourished Eyes: PERRL, anicteric sclera Ears, Nose, Mouth, Throat: moist mucous membranes, hearing normal Cardiovascular: regular rate and rhythym, no murmur, rub, or gallop Respiratory: no respiratory distress, other (crackles at bases), No expiratory wheeze Gastrointestinal: normoactive bowel sounds, soft, non-tender abdomen Genitourinary: No cohen in urethra Skin: warm, normal color Musculoskeletal: full muscle strength Neurologic: AAOx3 ICD10 Worksheet Patient Problems: Problems Problem Status Onset Elevated troponin Acute Hyponatremia Acute Kidney stone Acute Renal failure Acute Respiratory failure Acute Septic shock Acute UTI (urinary tract infection) Acute Urinary tract obstruction by kidney stone Acute
[2016-11-10] MEDS: OXYCODONE/APAP 5/325 TAB PO PRN ×2 (04:45→14:03)
[2016-11-10] MEDS: FLUTICASONE/SALMETER 250/50MCG DISKUS IH SCH ×2 (07:56→21:02)
[2016-11-10] MEDS: ENOXAPARIN 60 MG/0.6 ML SYR SC SCH ×2 (09:11→20:32)
--- NOTE | 2016-11-10 14:39 | HOSPPROG ---
Hospitalist Progress Note Assessment/Plan: Septic shock septic physiology has resolved -E.coli - urinary source -change IV Zosyn to Cefazolin based on sensitivities. Obstructing kidney stone with infection -s/p nephrostomy tube -per urology - discharge with nephrostomy tube in place -f/u few weeks for repeat imaging and possible surgical stone extraction Acute respiratory failure - still w crackles on exam suspect volume overload from volume resuscitation w sepsis lasix x 1 today ARF - improving Abnormal LFT -suspect due to sepsis -check abd US Troponin elevation - likely strain due to sepsis Thrombocytopenia - due to sepsis, presume that this will gradually begin to improve. Untreated hypothyroidism - consider start synthroid. Would not start until she is off pressors and more stable given cardiac strain Morbid obesity - BMI 53 cohen: removed 11/08 proph: lmwh at 60 bid given bmi > 50 Subjective: mild 02 requirement loose stool resolved Objective: Vital Signs Temp Pulse Resp BP Pulse Ox 36.4 C 97 18 123/69 H 97 11/10/16 12:09 11/10/16 12:09 11/10/16 12:09 11/10/16 12:09 11/10/16 12:09 Microbiology 11/05/16 06:45 Gram Stain - Final Other - Aspirate Laboratory Results 11/08/16 05:00 11/08/16 05:00 11/09/16 11/10/16 11/11/16 05:59 05:59 05:59 Intake Total 550 1765 Output Total 2975 3150 Balance -2425 -1385 PT 13.9 SEC (12.0-15.0) 11/05/16 08:24 INR 1.08 (0.83-1.16) 11/05/16 08:24 - Physical Exam Constitutional: no apparent distress, appears nourished Eyes: PERRL, anicteric sclera Ears, Nose, Mouth, Throat: moist mucous membranes, hearing normal Cardiovascular: regular rate and rhythym, no murmur, rub, or gallop Respiratory: no respiratory distress, no rales or rhonchi Gastrointestinal: normoactive bowel sounds, soft, non-tender abdomen Genitourinary: no bladder fullness, No cohen in urethra Skin: warm, normal color Musculoskeletal: full muscle strength, no muscle tenderness Neurologic: AAOx3, sensation intact bilaterally Psychiatric: interacting appropriately ICD10 Worksheet Patient Problems: Problems Problem Status Onset Elevated troponin Acute Hyponatremia Acute Kidney stone Acute Renal failure Acute Respiratory failure Acute Septic shock Acute UTI (urinary tract infection) Acute Urinary tract obstruction by kidney stone Acute
--- NOTE | 2016-11-10 16:31 | PCMIDPN ---
Assessment/Plan: Assessment/Plan: 1. E. coli sepsis with left pyelonephritis/obstructive stone; -Currenlty on Ancef therapy - plan for at least 14 days therapy. -Stone removal as per urology. Meds ancef 1g q8 Subjective: Afebrile. feeling a little better. still with intermittent pain especially on left flank. denies diarrhea. denies sob. Objective: Vital Signs Temp Pulse Resp BP Pulse Ox 36.8 C 91 17 96/65 L 94 11/10/16 15:35 11/10/16 15:35 11/10/16 15:35 11/10/16 15:35 11/10/16 15:35 Microbiology 11/05/16 06:45 Gram Stain - Final Other - Aspirate Laboratory Results 11/08/16 05:00 11/08/16 05:00 11/09/16 11/10/16 11/11/16 05:59 05:59 05:59 Intake Total 550 1765 Output Total 2975 3150 Balance -2425 -1385 - Physical Exam General Appearance: alert, no apparent distress Respiratory: lungs clear Cardiac/Chest: regular rate, rhythm Extremities: other (no swelling) Abdomen: normal bowel sounds, non-tender, soft ICD10 Worksheet Patient Problems: Problems Problem Status Onset Elevated troponin Acute Hyponatremia Acute Kidney stone Acute Renal failure Acute Respiratory failure Acute Septic shock Acute UTI (urinary tract infection) Acute Urinary tract obstruction by kidney stone Acute
[2016-11-11] MEDS ORDERED: CALCIUM CARBONATE 500 MG CHEWABLE TAB PO PRN (00:06)
[2016-11-11] MEDS: ACETAMINOPHEN 325 MG TAB PO PRN ×2 (00:55→21:32)
[2016-11-11] MEDS: diphenhydrAMINE 25 MG CAP PO PRN ×2 (02:08→08:55)
[2016-11-11 03:43] LABS: ADD DIFF? YES; ADD MORPH? NO; ADD SCAN? NO; ATYPICAL LYMPHOCYTE FLAG 0 (0-99); FRAGMENT RBC FLAG 0 (0-99); HEMATOCRIT 33.7 % (38.0-47.0); HEMOGLOBIN 11.6 g/dL (12.6-16.3); LEFT SHIFT FLG 20 (0-99); LIPEMIA HEMOLYSIS FLAG 90 (0-99); MEAN CELL HEMOGLOBIN 31.4 pg (27.9-34.1); MEAN CELL HEMOGLOBIN CONCENTR. 34.4 g/dL (32.4-36.7); MEAN CELL VOLUME 91.3 fL (81.5-99.8); MEAN PLATELET VOLUME 10.5 fL (8.7-11.7); PLATELET CLUMPS FLAG 20 (0-99); PLATELET COUNT 155 10^3/uL (150-400); RED BLOOD CELL COUNT 3.69 10^6/uL (4.18-5.33); RED CELL DISTRIBUTION WIDTH 13.2 % (11.5-15.2)
[2016-11-11 04:00] LABS: ALANINE AMINOTRANSFERASE 30 IU/L (9-52); ALBUMIN 2.3 g/dL (3.5-5.0); ALKALINE PHOSPHATASE 86 IU/L (38-126); ANION GAP 9 mEq/L (8-16); ASPARTATE AMINOTRANSFERASE 26 IU/L (14-46); BILIRUBIN,TOTAL 1.6 mg/dL (0.1-1.4); CALCIUM 7.6 mg/dL (8.5-10.4); CARBON DIOXIDE 25 mEq/l (22-31); CHLORIDE 101 mEq/L (97-110); CREATININE 0.7 mg/dL (0.6-1.0); GLOMERULAR FILTRATION RATE > 60; GLUCOSE 90 mg/dL (70-100); POTASSIUM 3.5 mEq/L (3.5-5.2); SODIUM 135 mEq/L (134-144)
[2016-11-11 04:09] LABS: PLATELET ESTIMATE DECREASED (ADEQ)
[2016-11-11] MEDS: ENOXAPARIN 60 MG/0.6 ML SYR SC SCH ×2 (08:55→21:14)
[2016-11-11] MEDS: FLUTICASONE/SALMETER 250/50MCG DISKUS IH SCH ×2 (11:44→22:34)
--- NOTE | 2016-11-11 12:57 | PCMIDPN ---
Assessment/Plan: Assessment/Plan: 1. E. coli sepsis with left pyelonephritis/obstructive stone; -Currenlty on Ancef therapy---change to invanz given rash. - plan for at least 14 days therapy.--to 11/19/16 -s/p nephrostomy tube on 11/05/16 -Stone removal as per urology. 2. Rash: - appears c/w drug rash possibly from ancef -change ancef to invanz today. - monitor closely Meds ancef 1g q8 Subjective: afebrile. c/o rash today on legs, arms. denies itching or pain. denies worsening sob. denies abd pain. loose stools. c/o nausea Objective: Vital Signs Temp Pulse Resp BP Pulse Ox 36.8 C 96 20 111/69 95 11/11/16 11:56 11/11/16 11:56 11/11/16 11:56 11/11/16 11:56 11/11/16 11:56 Laboratory Results 11/11/16 03:30 11/11/16 03:30 11/10/16 11/11/16 11/12/16 05:59 05:59 05:59 Intake Total 1765 1200 Output Total 3150 1200 375 Balance -1385 0 -375 - Physical Exam General Appearance: alert, no apparent distress Respiratory: lungs clear (anteriorly) Cardiac/Chest: regular rate, rhythm Extremities: No swelling Abdomen: normal bowel sounds, non-tender, soft, No distended Skin: erythema (patchy maculopapular over bilateral thighs, and forearms. none on abdomen, trunk at present. no blisters, bullae, desquamation) ICD10 Worksheet Patient Problems: Problems Problem Status Onset Elevated troponin Acute Hyponatremia Acute Kidney stone Acute Renal failure Acute Respiratory failure Acute Septic shock Acute UTI (urinary tract infection) Acute Urinary tract obstruction by kidney stone Acute
[2016-11-11] MEDS ORDERED: FUROSEMIDE 40 MG/4 ML VIAL IVP ONE (12:58)
--- NOTE | 2016-11-11 13:03 | HOSPPROG ---
Hospitalist Progress Note Assessment/Plan: Septic shock septic physiology has resolved -E.coli - urinary source -change IV Zosyn to Cefazolin based on sensitivities. rash: almost certainly drug rash dc cefazolin start ertapenem Obstructing kidney stone with infection -s/p nephrostomy tube -per urology - discharge with nephrostomy tube in place -f/u few weeks for repeat imaging and possible surgical stone extraction Acute respiratory failure - still w crackles on exam suspect volume overload from volume resuscitation w sepsis lasix x 1 today ARF - improving Abnormal LFT -suspect due to sepsis -check abd US Troponin elevation - likely strain due to sepsis Thrombocytopenia - due to sepsis, presume that this will gradually begin to improve. Untreated hypothyroidism - consider start synthroid. Would not start until she is off pressors and more stable given cardiac strain Morbid obesity - BMI 53 coehn: removed 11/08 proph: lmwh at 60 bid given bmi > 50 Subjective: case d/w dr aguila Objective: Vital Signs Temp Pulse Resp BP Pulse Ox 36.8 C 96 20 111/69 95 11/11/16 11:56 11/11/16 11:56 11/11/16 11:56 11/11/16 11:56 11/11/16 11:56 Laboratory Results 11/11/16 03:30 11/11/16 03:30 11/10/16 11/11/16 11/12/16 05:59 05:59 05:59 Intake Total 1765 1200 Output Total 3150 1200 375 Balance -1385 0 -375 PT 13.9 SEC (12.0-15.0) 11/05/16 08:24 INR 1.08 (0.83-1.16) 11/05/16 08:24 - Physical Exam Constitutional: no apparent distress, appears nourished Eyes: PERRL, anicteric sclera Ears, Nose, Mouth, Throat: moist mucous membranes, hearing normal Cardiovascular: regular rate and rhythym, no murmur, rub, or gallop Respiratory: no respiratory distress, no rales or rhonchi Gastrointestinal: normoactive bowel sounds, soft, non-tender abdomen Genitourinary: no bladder fullness, No cohen in urethra Skin: warm, No other (macular erythematous rash on arms and legs) Musculoskeletal: full muscle strength Neurologic: AAOx3 ICD10 Worksheet Patient Problems: Problems Problem Status Onset Elevated troponin Acute Hyponatremia Acute Kidney stone Acute Renal failure Acute Respiratory failure Acute Septic shock Acute UTI (urinary tract infection) Acute Urinary tract obstruction by kidney stone Acute
[2016-11-11] MEDS: ERTAPENEM 1 GM in NS 100 ML IV SCH (14:14)
[2016-11-11] MEDS: OXYCODONE/APAP 5/325 TAB PO PRN (16:34)
--- NOTE | 2016-11-11 17:04 | ASMTCMCOM ---
CM Note CM Note Notes: PT is recommending home care and OT is recommending SNF or home care. D/C needs still unclear. PT is following to see if patient's progress changes D/C needs. CM will follow. Date Signed: 11/07/2016 03:56 PM Electronically Signed By:Irina Rogel
--- NOTE | 2016-11-11 17:07 | ASMTCMCOM ---
CM Note CM Note Notes: Pt will need IV ABX at DC. She will also get a PICC line before DC. DC unclear. [employer] ran benefits for pt and she will be covered at 100%. Pt lives in [facility] agency that goes there will need to be found. C/M will continue to follow. Date Signed: 11/09/2016 04:37 PM Electronically Signed By:Tabatha White
--- NOTE | 2016-11-11 17:08 | ASMTCMCOM ---
CM Note CM Note Notes: faxed PICC report to [facility]. Pt will d/c on IV antibiotics. Date Signed: 11/10/2016 02:45 PM Electronically Signed By:Aleyda Portillo
--- NOTE | 2016-11-11 17:31 | ASMTCMCOM ---
CM Note CM Note Notes: Reviewed chart. IV antibiotics changed d/t rash. Pt to be on Invanz for next 14 days, likely until 11/19/16. ID and Hospitalist monitoring closely, not yet ready for d/c. [employer] set up for IV antibiotics, will need to fax updates on Sat11/12/16. CM will also need to set up HHC on Saturday, possibly [facility]. CM will cont to follow. Date Signed: 11/11/2016 05:30 PM Electronically Signed By:Laine Carvalho
[2016-11-12] MEDS: ALBUTEROL 200 PUFFS/18 GM MDI IH PRN (08:24)
[2016-11-12] MEDS: FLUTICASONE/SALMETER 250/50MCG DISKUS IH SCH ×2 (08:29→20:38)
[2016-11-12] MEDS: ERTAPENEM 1 GM in NS 100 ML IV SCH (09:18)
[2016-11-12] MEDS: ENOXAPARIN 60 MG/0.6 ML SYR SC SCH ×2 (09:18→20:09)
--- NOTE | 2016-11-12 11:19 | PDIAF ---
- Diagnosis Diagnosis: e-coli sepsis wit complicated uti secondary to infected stone Code Status: Full Code - Medication Management Discharge Medications: Medications to Continue on Transfer Albuterol [Ventolin Hfa Inhaler] 1 - 2 puffs IH Q4 PRN 11/05/16 [Last Taken 05/18] Calcium Carbonate [Tums 500MG (*)] 500 mg PO PRN PRN 11/05/16 [Last Taken Unknown] Cholecalciferol Vit D3 [Vitamin D3 (*)] 2,000 units PO DAILY 11/05/16 [Last Taken Unknown] Herbals/Supplements -Info Only 1 ea PO DAILY 11/05/16 [Last Taken Unknown] Acetaminophen [Tylenol 325mg (*)] 650 mg PO Q4 PRN tab 11/12/16 [Last Taken Unknown] Albuterol [Ventolin Hfa Inhaler] 2 puffs IH Q6HRS PRN mdi 11/12/16 [Last Taken Unknown] Calcium Carbonate [Tums 500MG (*)] 500 mg PO TID PRN tab.chew 11/12/16 [Last Taken Unknown] Ertapenem [INVanz] 1 gm IV DAILY vial 11/12/16 [Last Taken Unknown] Fluticasone/Salmeter 250/50Mcg [Advair 250/50 (*)] 1 puffs IH BID disk [Last Taken Unknown] oxyCODONE/APAP 5/325 [Percocet 5/325 (*)] 2 tab PO Q4HRS PRN tab 11/12/16 [ Last Taken Unknown] [employer] Antibiotics: continue Invanz daily through 11/19/16 Discharge Medications: Refer to the Discharge Home Medication list for PRN reason. - Orders Services needed: Registered Nurse, Physical Therapy, Occupational Therapy Diet Recommendation: no restrictions on diet Diet Texture: Regular Texture Diet - Follow Up Care Current Providers and Referrals: NOT,SURE [Other] - As per Instructions
--- NOTE | 2016-11-12 12:25 | GDS ---
[f rep st] DISCHARGE SUMMARY DISCHARGE DIAGNOSES: 1. Quinolone-resistant Escherichia coli sepsis with resolved septic shock. 2. Complicated urinary tract infection with obstructive kidney stone. 3. Resolved rash due to Ancef. 4. Improving acute respiratory failure due to volume overload. 5. Improving acute renal failure. 6. Transaminitis. 7. Thrombocytopenia, likely due to sepsis. 8. Morbid obesity. 9. Subclinical hypothyroidism, likely due to acute illness. CONSULTANTS: Dr. Jacques oCnway; Interventional Radiology, Dr. Andrea with nephrostomy tube placement o n 11/05/2016/ [facility]. HOSPITAL COURSE OF STAY BY PROBLEM: 1. Septic shock due to Levaquin-resistant Escherichia coli bacteremia from complicated urinary tract infection: The patient was initially admitted to the intensive care unit where she was successfully treated for septic shock. A nephrostomy tube was placed on the day of admission. She was initially treated with vancomycin and Zosyn which was switched to cefazolin. The patient developed a rash on her legs on 11/10/2016, which was thought to be due to cefazolin, and she was subsequently switched t o ertapenem. On day of discharge, she is not having any further signs of septic shock. She seems to be tolerating ertapenem, which should be continued through 11/19/2016. She will be discharged to a custodial facility with her nephrostomy tube in place but will need outpatient followup with Dr Marciano Conway with a repeat CT to further help guide stone management. 2. The patient had transaminitis when they came to the hospital, which has since resolved. It was l ikely due to her acute illness. 3. Subclinical hypothyroidism: The patient presented with a TSH of 9.03 and a free T4 within normal limits. She should have a repeat TSH done in 4-6 weeks. PHYSICAL EXAM: VITAL SIGNS: On day of discharge, blood pressure 110/71, pulse of 93, respiratory ra te 20, O2 sat 92% on 3 L, temperature afebrile. GENERAL: No acute distress. HEART: S1, S2. LUNGS : Clear. ABDOMEN: Soft. PROCEDURES DONE THIS HOSPITAL STAY: Nephrostomy tube done 11/05/2016. PICC line placed 11/09/2016. DISCHARGE MEDICATIONS: Please refer to discharge medication reconciliation [facility] for details. DISCHARGE INSTRUCTIONS: The patient will be discharged from the hospital where she plans to go to a custodial facility for further rehabilitation. Once again, she will need to follow up with Dr. Conway in 1 week for further management of her kidney stones. I will repeat blood cultures prior to her leaving and these will need to be followed up as well. Copy requested to: Dr. Delong /[id number]/MODL
--- NOTE | 2016-11-12 16:07 | PCMIDPN ---
Assessment/Plan: Assessment: Complicated E coli bacteremia secondary to pyelonephritis due to nephrolithiasis. Patient has a fluoroquinolone resistant E coli. Is currently being managed on ertapenem due to rash from cefazolin. The rash is clinically improved today. Plan to complete a 10-14 day course on ertapenem IV. Awaiting placement. Plan: 1. Continue IV ertapenem. 2. Duration 10 days from negative blood cultures. 3. Encourage PT and OT secondary to weakness from illness/infection. 11/12/16 16:05 Subjective: Patient is resting comfortably in her hospital bed. She notes no new complaints. She states she feels like she is getting better slightly each day. She continues to have a cough and it is productive. No new fevers or chills. Rash is fading. Objective: Ertapenem # 2 Vital Signs Temp Pulse Resp BP Pulse Ox 36.7 C 93 20 110/71 92 11/12/16 09:00 11/12/16 09:00 11/12/16 09:00 11/12/16 09:00 11/12/16 09:00 Microbiology 11/05/16 06:45 Gram Stain - Final Other - Aspirate Anaerobic Culture - Final Escherichia Coli Laboratory Results 11/11/16 03:30 11/11/16 03:30 11/11/16 11/12/16 11/13/16 05:59 05:59 05:59 Intake Total 1200 2750 Output Total 1200 2375 Balance 0 375 - Physical Exam General Appearance: WD/WN, alert, no apparent distress, obese, non-toxic Respiratory: lungs clear, normal breath sounds, No respiratory distress Cardiac/Chest: regular rate, rhythm, No tachycardia Skin: normal color, warm/dry, rash (Very faded rash lacy erythematous evident most on right upper extremity and right lower extremity.) Neuro/Psych: alert, normal mood/affect, oriented x 3 ICD10 Worksheet Patient Problems: Problems Problem Status Onset Elevated troponin Acute Hyponatremia Acute Kidney stone Acute Renal failure Acute Respiratory failure Acute Septic shock Acute UTI (urinary tract infection) Acute Urinary tract obstruction by kidney stone Acute
[2016-11-12] MEDS: ACETAMINOPHEN 325 MG TAB PO PRN (20:17)
[2016-11-13] MEDS: OXYCODONE/APAP 5/325 TAB PO PRN (03:09)
[2016-11-13] MEDS: FLUTICASONE/SALMETER 250/50MCG DISKUS IH SCH ×2 (08:28→20:52)
[2016-11-13] MEDS: ENOXAPARIN 60 MG/0.6 ML SYR SC SCH ×2 (08:37→22:43)
[2016-11-13] MEDS: ERTAPENEM 1 GM in NS 100 ML IV SCH (08:37)
--- NOTE | 2016-11-13 14:44 | HOSPPROG ---
Hospitalist Progress Note Assessment/Plan: Assessment # septic shock due to quinolone resistant E coli # resolved fixed drug reaction to cefazolin # complicated urinary tract infection with obstructed infected kidney stone # acute respiratory failure (improving) # acute renal failure # transaminitis # thrombocytopenia # subclinical hypothyroidism Plan -continue ertapenem through 11/19/2016 -continue to encourage ambulation work with physical therapy -encourage incentive spirometer use Disposition: thought that the patient could be discharged to a long term facility yesterday however we were unable to find placement for her. Patient will need to reside in the hospital until she is strong enough to return back to her home in [place] that has many stairs Subjective: Strength is slowly improving or she is still very weak and has are time ambulating. Denies any fevers or chills. She does continue to have some shortness of breath. Objective: Vital Signs Temp Pulse Resp BP Pulse Ox 36.7 C 92 18 121/68 H 93 11/13/16 09:33 11/13/16 11:12 11/13/16 09:33 11/13/16 09:33 11/13/16 11:12 Microbiology 11/05/16 06:45 Gram Stain - Final Other - Aspirate Anaerobic Culture - Final Escherichia Coli Laboratory Results 11/11/16 03:30 11/11/16 03:30 11/12/16 11/13/16 11/14/16 05:59 05:59 05:59 Intake Total 2750 1300 Output Total 2375 1720 Balance 375 -420 PT 13.9 SEC (12.0-15.0) 11/05/16 08:24 INR 1.08 (0.83-1.16) 11/05/16 08:24 - Physical Exam Constitutional: no apparent distress, appears nourished, not in pain Cardiovascular: regular rate and rhythym, no murmur, rub, or gallop Respiratory: no respiratory distress, no rales or rhonchi, clear to auscultation , reduced air movement Gastrointestinal: normoactive bowel sounds, soft, non-tender abdomen, no palpable masses, No guarding, No rebound Neurologic: AAOx3, sensation intact bilaterally ICD10 Worksheet Patient Problems: Problems Problem Status Onset Septic shock Acute UTI (urinary tract infection) Acute Kidney stone Acute Respiratory failure Acute Hyponatremia Acute Elevated troponin Acute Renal failure Acute Urinary tract obstruction by kidney stone Acute
--- NOTE | 2016-11-13 15:37 | ASMTCMCOM ---
CM Note CM Note Notes: Plan had been that patient would discharge home with partner with [facility] for IV antibiotics and home care. it was determined that patient is too weak to discharge home and SNF is needed. Case management contacted [facility], [facility], [facility], [facility] and [facility] They all said that because of the type of Medicaid she has they cant take her because under this plan they have not been being paid. Pt to complete IV antibiotics on 11/19. Still unknown where she can be discharged to .Case management will follow. Date Signed: 11/13/2016 03:36 PM Electronically Signed By:SARAH Maldonado
[2016-11-14] MEDS: OXYCODONE/APAP 5/325 TAB PO PRN ×2 (05:50→21:29)
[2016-11-14] MEDS: FLUTICASONE/SALMETER 250/50MCG DISKUS IH SCH (09:04)
[2016-11-14] MEDS: ENOXAPARIN 60 MG/0.6 ML SYR SC SCH ×2 (09:32→21:30)
[2016-11-14] MEDS: ERTAPENEM 1 GM in NS 100 ML IV SCH (09:32)
[2016-11-14] MEDS: ALBUTEROL 3 ML DEYVIAL IH PRN (09:36)
--- NOTE | 2016-11-14 10:30 | PCMIDPN ---
Assessment/Plan: #Sepsis --> E coli bacteremia --> L pyelonephritis -->obstruction. Now with L nephrostomy. Continued improvement --plan 14 days of IV abx, 11/19 stop date --stone to be removed as outpatient, may need suppressive antibiotics - ? bactrim until stone removed --repeat labs at least once prior to antibiotic stop date. Last labs 11/11 show no evidence of toxicity # Rash to cefazolin med, Abx #9 ertapenem 1gm IV daily micro 11/05 blood, urine, L kidney: E coli resistant to levofloxacin and ampicillin 11/12 blood cx (2) pending Subjective: Primary c/o is persistent dry cough with associated R abdominal muscle pain from coughing no diarrhea no flank pain Objective: Vital Signs Temp Pulse Resp BP Pulse Ox 36.6 C 78 18 104/60 95 11/14/16 09:09 11/14/16 09:35 11/14/16 09:35 11/14/16 09:09 11/14/16 09:09 Laboratory Results 11/11/16 03:30 11/11/16 03:30 11/13/16 11/14/16 11/15/16 05:59 05:59 05:59 Intake Total 1300 1370 Output Total 1720 1775 Balance -420 -405 AF General Appearance: alert, no apparent distress, obese EENT: pale conjunctiva, Swelling of L parotid gland, No scleral icterus Respiratory: no accessory muscle use Decreased breath sounds in the bases Neck: supple Cardiac/Chest: regular rate, rhythm Extremities: No pedal edema Abdomen: non-tender, soft, NT; L nephrostomy Skin: No rash R UE PICC c/d/i Neuro/Psych: alert, normal mood/affect, oriented x 3 ICD10 Worksheet Patient Problems: Problems Problem Status Onset Elevated troponin Acute Hyponatremia Acute Kidney stone Acute Renal failure Acute Respiratory failure Acute Septic shock Acute UTI (urinary tract infection) Acute Urinary tract obstruction by kidney stone Acute
--- NOTE | 2016-11-14 14:21 | HOSPPROG ---
Hospitalist Progress Note Assessment/Plan: Assessment # septic shock due to quinolone resistant E coli # resolved fixed drug reaction to cefazolin # complicated urinary tract infection with obstructed infected kidney stone # acute respiratory failure (improving) # acute renal failure # transaminitis # thrombocytopenia # subclinical hypothyroidism # deconditioning Plan -continue ertapenem through 11/19/2016 -continue to encourage ambulation work with physical therapy -encourage incentive spirometer use -patient does not want to continue using Advair which will be discontinued Disposition: thought that the patient could be discharged to a correction facility on 11/12/2016 however we were unable to find placement for her. Patient will need to reside in the hospital until she is strong enough to return back to her home in [place] that has many stairs. She will need to follow up with Urology to help manage nephrostomy tube and further management of her kidney stones. Subjective: No new complaints. Strength is improving or she is still very weak and does not think she can go home independently. She denies any fevers or chills. Objective: Vital Signs Temp Pulse Resp BP Pulse Ox 36.6 C 78 18 104/60 95 11/14/16 09:09 11/14/16 09:35 11/14/16 09:35 11/14/16 09:09 11/14/16 09:09 Laboratory Results 11/11/16 03:30 11/11/16 03:30 11/13/16 11/14/16 11/15/16 05:59 05:59 05:59 Intake Total 1300 1370 Output Total 1720 1775 350 Balance -420 -405 -350 PT 13.9 SEC (12.0-15.0) 11/05/16 08:24 INR 1.08 (0.83-1.16) 11/05/16 08:24 - Physical Exam Constitutional: no apparent distress, appears nourished, not in pain Ears, Nose, Mouth, Throat: moist mucous membranes, hearing normal, ears appear normal, no oral mucosal ulcers Cardiovascular: regular rate and rhythym, no murmur, rub, or gallop Respiratory: no respiratory distress, no rales or rhonchi, clear to auscultation ICD10 Worksheet Patient Problems: Problems Problem Status Onset Septic shock Acute UTI (urinary tract infection) Acute Kidney stone Acute Respiratory failure Acute Hyponatremia Acute Elevated troponin Acute Renal failure Acute Urinary tract obstruction by kidney stone Acute
[2016-11-15] MEDS: OXYCODONE/APAP 5/325 TAB PO PRN (04:03)
[2016-11-15] MEDS: ERTAPENEM 1 GM in NS 100 ML IV SCH (09:05)
[2016-11-15] MEDS: ENOXAPARIN 60 MG/0.6 ML SYR SC SCH ×2 (09:44→20:20)
--- NOTE | 2016-11-15 11:45 | HOSPPROG ---
Hospitalist Progress Note Assessment/Plan: # septic shock due to quinolone resistant E coli - changed to ertapenem due to drug reaction from cefazolin. -cont ertapenem through 11/19/2016 # complicated urinary tract infection with obstructed / infected kidney stone -nephrostomy tube until outpt urology f/u for definitive stone management and removal of nephrostomy tube # acute respiratory failure- suspect secondary to sepsis, resolved, on room air # acute renal failure - likely secondary to septic shock and hypoperfusion, resolved # transaminitis -?shock kidney from sepsis, resolved # thrombocytopenia - likely due to sepsis, resolved # subclinical hypothyroidism - outpt f/u # parotid mass - outpt f/u planned # deconditioning - cont PT/OT, ambuation Disposition: thought that the patient could be discharged to a [facility] facility on 11/12/2016 however we were unable to find placement for her. Working with CM to set up home care for home atbx infusion, possible dc tomorrow. Subjective: Pt feels much better. No fevers/chills. No flank pain or dysuria. She is ambulating. Objective: Vital Signs Temp Pulse Resp BP Pulse Ox 36.4 C 86 17 105/76 90 L 11/15/16 08:50 11/15/16 08:50 11/15/16 08:50 11/15/16 08:50 11/15/16 08:50 Laboratory Results 11/11/16 03:30 11/11/16 03:30 11/14/16 11/15/16 11/16/16 05:59 05:59 05:59 Intake Total 1370 1600 Output Total 1775 1150 Balance -405 450 PT 13.9 SEC (12.0-15.0) 11/05/16 08:24 INR 1.08 (0.83-1.16) 11/05/16 08:24 - Physical Exam Constitutional: no apparent distress Eyes: PERRL Ears, Nose, Mouth, Throat: moist mucous membranes Cardiovascular: regular rate and rhythym Respiratory: no respiratory distress, clear to auscultation Gastrointestinal: normoactive bowel sounds, soft, non-tender abdomen Skin: warm Musculoskeletal: full muscle strength Neurologic: AAOx3 Psychiatric: interacting appropriately ICD10 Worksheet Patient Problems: Problems Problem Status Onset Elevated troponin Acute Hyponatremia Acute Kidney stone Acute Renal failure Acute Respiratory failure Acute Septic shock Acute UTI (urinary tract infection) Acute Urinary tract obstruction by kidney stone Acute
--- NOTE | 2016-11-15 14:34 | ASMTCMCOM ---
CM Note CM Note Notes: PT determined that pt was okay to go home with HC PT. [employer] had already run benefits for pt's IV ABX and she is covered at 100%. [facility] can go to [place]. Pt will also need HC PT/OT. Met with pt to discuss. She is in agreement with plan. Pt's street address is [address] [place] [address] on [place] in [place]. She asked that [facility] deliver ABX to [facility] before DC. They are willing to do that. C/M to follow. Date Signed: 11/15/2016 02:33 PM Electronically Signed By:Tabatha White LCSW
[2016-11-16 07:49] VITALS: BP 127/88; PULSE 89; RESP 16; TEMP 97.7; O2SAT 93
[2016-11-16] MEDS: ENOXAPARIN 60 MG/0.6 ML SYR SC SCH (08:48)
[2016-11-16] MEDS: ERTAPENEM 1 GM in NS 100 ML IV SCH (08:49)
--- NOTE | 2016-11-16 09:26 | PDIAF ---
- Diagnosis Diagnosis: e-coli sepsis wit complicated uti secondary to infected stone Code Status: Full Code - Medication Management Discharge Medications: Medications to Continue on Transfer Albuterol [Ventolin Hfa Inhaler] 1 - 2 puffs IH Q4 PRN 11/05/16 [Last Taken 05/18] Calcium Carbonate [Tums 500MG (*)] 500 mg PO PRN PRN 11/05/16 [Last Taken Unknown] Cholecalciferol Vit D3 [Vitamin D3 (*)] 2,000 units PO DAILY 11/05/16 [Last Taken Unknown] Herbals/Supplements -Info Only 1 ea PO DAILY 11/05/16 [Last Taken Unknown] Acetaminophen [Tylenol 325mg (*)] 650 mg PO Q4 PRN tab 11/12/16 [Last Taken Unknown] Albuterol [Ventolin Hfa Inhaler] 2 puffs IH Q6HRS PRN mdi 11/12/16 [Last Taken Unknown] Calcium Carbonate [Tums 500MG (*)] 500 mg PO TID PRN tab.chew 11/12/16 [Last Taken Unknown] Ertapenem [INVanz] 1 gm IV DAILY vial 11/12/16 [Last Taken Unknown] Fluticasone/Salmeter 250/50Mcg [Advair 250/50 (*)] 1 puffs IH BID disk [Last Taken Unknown] oxyCODONE/APAP 5/325 [Percocet 5/325 (*)] 2 tab PO Q4HRS PRN tab 11/12/16 [ Last Taken Unknown] Supervisor Assembling Antibiotics: continue Invanz daily through 11/19/16 Discharge Medications: Refer to the Discharge Home Medication list for PRN reason. PICC Care - Routine: Yes - Orders Services needed: Registered Nurse, Physical Therapy, Occupational Therapy Diet Recommendation: no restrictions on diet Diet Texture: Regular Texture Diet Activity/Weight Bearing Restrictions: Use walker for safety, PT/OT Additional: Home health - Follow Up Care Current Providers and Referrals: NOT,SURE [Other] - As per Instructions Radha Bright MD [Medical Doctor] - 11/20/16 2:00 pm Esther Conway MD [Medical Doctor] -
--- NOTE | 2016-11-16 09:31 | PDIAF ---
- Diagnosis Diagnosis: e-coli sepsis wit complicated uti secondary to infected stone Code Status: Full Code - Medication Management Discharge Medications: Medications to Continue on Transfer Albuterol [Ventolin Hfa Inhaler] 1 - 2 puffs IH Q4 PRN 11/05/16 [Last Taken 05/18] Calcium Carbonate [Tums 500MG (*)] 500 mg PO PRN PRN 11/05/16 [Last Taken Unknown] Cholecalciferol Vit D3 [Vitamin D3 (*)] 2,000 units PO DAILY 11/05/16 [Last Taken Unknown] Herbals/Supplements -Info Only 1 ea PO DAILY 11/05/16 [Last Taken Unknown] Acetaminophen [Tylenol 325mg (*)] 650 mg PO Q4 PRN tab 11/12/16 [Last Taken Unknown] Albuterol [Ventolin Hfa Inhaler] 2 puffs IH Q6HRS PRN mdi 11/12/16 [Last Taken Unknown] Calcium Carbonate [Tums 500MG (*)] 500 mg PO TID PRN tab.chew 11/12/16 [Last Taken Unknown] Ertapenem [INVanz] 1 gm IV DAILY vial 11/12/16 [Last Taken Unknown] Fluticasone/Salmeter 250/50Mcg [Advair 250/50 (*)] 1 puffs IH BID disk [Last Taken Unknown] oxyCODONE/APAP 5/325 [Percocet 5/325 (*)] 2 tab PO Q4HRS PRN tab 11/12/16 [ Last Taken Unknown] Label Rewinder Antibiotics: continue Invanz daily through 11/19/16 Discharge Medications: Refer to the Discharge Home Medication list for PRN reason. PICC Care - Routine: Yes - Orders Services needed: Registered Nurse, Physical Therapy, Occupational Therapy Diet Recommendation: no restrictions on diet Diet Texture: Regular Texture Diet Activity/Weight Bearing Restrictions: Use walker for safety, PT/OT Additional: Home health - Labs/Radiology CBC Date: 11/19/16 (Once) CMP Date: 11/19/16 (Once) Call or Fax Lab and Imaging Results to: Radha Bright MD [facility] at fax [phone] - Follow Up Care Current Providers and Referrals: NOT,SURE [Other] - As per Instructions Radha Bright MD [Medical Doctor] - 11/20/16 2:00 pm Esther Conway MD [Medical Doctor] -
--- NOTE | 2016-11-16 10:09 | ASMTCMCOM ---
CM Note CM Note Notes: Pt ready to DC today. [employer] will deliver ABX to pt's home. They have instructions for how to find her garden [place] apt. [facility] set to open pt tomorrow. Pt has loan closet list for getting a walker. Date Signed: 11/16/2016 10:08 AM Electronically Signed By:Tabatha White LCSW
--- NOTE | 2016-11-16 10:10 | ASDISCHSUM ---
Discharge Information Plan Status:IV ABX/Infusion Medically Cleared to Leave: Discharge Date: D/C Disposition:Home Health Service [facility] D/C Disposition:Home, Routine, Self-Care Projected Discharge Date:11/16/2016 11:00 AM Transportation at D/C: Discharge Delay Reason: Follow-Up Date:11/16/2016 11:00 AM Discharge Slot: Final Diagnosis:septic shock, UTI with sepsis, OBstructing stone Placement Information Referral Type:Home Infusion Referral ID:[id number] Provider Name:[facility]) Address 1:[address] Address 2: City:[place] Selection Factors: State:[place] Referral Type:*Home Health Care Services Referral ID:[id number] Provider Name:[facility] Address 1:[address] Address 2: City:[place] Selection Factors: State:[place] Patient Contact Information Contact Name:RAQUEL Relationship:Other Address: City:[place] Alternate Phone: [facility]/Zip Code:[place] [address] Email: Financial Information Financial Class: Primary Plan Desc:[place] Primary Plan Number:[id number] Secondary Plan Desc: Secondary Plan Number: Assessment Information [facility] CM Progress Note CM Note CM Note Notes: 56 year old female admitted for septic shock-urinary, ARF, obstructing stone. Has a Hx of Hypothyroid untreated and nepatic dysfunction. Patient was to be extubated today. Case Management to follow-for possible discharge needs. Date Signed: 11/06/2016 06:22 PM Electronically Signed By:Monique Coy LCSW [facility] CM Progress Note CM Note CM Note Notes: PT is recommending home care and OT is recommending SNF or home care. D/C needs still unclear. PT is following to see if patient's progress changes D/C needs. CM will follow. Date Signed: 11/07/2016 03:56 PM Electronically Signed By:Irina Rogel LCSW [facility] CM Progress Note CM Note CM Note Notes: Pt will need IV ABX at DC. She will also get a PICC line before DC. DC unclear. [employer] ran benefits for pt and she will be covered at 100%. Pt lives in [facility] agency that goes there will need to be found. C/M will continue to follow. Date Signed: 11/09/2016 04:37 PM Electronically Signed By:Tabatha White LCSW [facility] CM Progress Note CM Note CM Note Notes: faxed PICC report to [employer]. Pt will d/c on IV antibiotics. Date Signed: 11/10/2016 02:45 PM Electronically Signed By:Aleyda Portillo MSW [facility] CM Progress Note CM Note CM Note Notes: Reviewed chart. IV antibiotics changed d/t rash. Pt to be on Invanz for next 14 days, likely until 11/19/16. ID and Hospitalist monitoring closely, not yet ready for d/c. [employer] set up for IV antibiotics, will need to fax updates on Sat11/12/16. CM will also need to set up C on Saturday, possibly [facility]. CM will cont to follow. Date Signed: 11/11/2016 05:30 PM Electronically Signed By:Laine Carvalho RN [facility] CM Progress Note CM Note CM Note Notes: Plan had been that patient would discharge home with partner with [facility] for IV antibiotics and home care. it was determined that patient is too weak to discharge home and SNF is needed. Case management contacted [facility], [facility], [facility], [facility] and [facility]. They all said that because of the type of Medicaid she has they cant take her because under this plan they have not been being paid. Pt to complete IV antibiotics on 11/19. Still unknown where she can be discharged to .Case management will follow. Date Signed: 11/13/2016 03:36 PM Electronically Signed By:MICHAEL Maldonado [facility] CM Progress Note CM Note CM Note Notes: PT determined that pt was okay to go home with HC PT. [facility] had already run benefits for pt's IV ABX and she is covered at 100%. [facility] can go to [place]. Pt will also need HC PT/OT. Met with pt to discuss. She is in agreement with plan. Pt's street address is [address] [place] [address] [place] in [place]. She asked that [facility] deliver ABX to [facility] before DC. They are willing to do that. C/M to follow. Date Signed: 11/15/2016 02:33 PM Electronically Signed By:Tabatha White LCSW [facility] CM Progress Note CM Note CM Note Notes: Pt ready to DC today. [facility] will deliver ABX to pt's home. They have instructions for how to find her [place] apt. [facility] set to open pt tomorrow. Pt has loan closet list for getting a walker. Date Signed: 11/16/2016 10:08 AM Electronically Signed By:Tabatha White LCSW Intervention Information
--- NOTE | 2016-11-16 20:26 | GDS ---
[f rep st] DISCHARGE SUMMARY DISCHARGE DIAGNOSES: 1. Septic shock secondary to complicated urinary tract infection in the setting of obstructing nephrolithiasis. 2. Obstructive nephrolithiasis requiring nephrostomy tube placement. 3. Acute respiratory failure, likely secondary to sepsis, resolved. 4. Acute renal failure, likely secondary to sepsis, resolved. 5. Transaminitis, likely secondary to shock kidney in the setting of sepsis, resolved. 6. Thrombocytopenia, likely secondary to sepsis, resolved. 7. Subclinical hypothyroidism. 8. Parotid mass. CONSULTANTS: 1. Dr. Kristy Molina, Nephrology. 2. Dr. Randall Treadwell, Pulmonology. 3. Dr. Esther Conway, Urology. 4. Dr. Black Kong, Infectious Disease. HISTORY OF DETAILS: Please see the history and physical dated November 05, 2016. In brief, the patient is a 56-year-old female with a history of untreated hypothyroidism, who presented to the emergency department reporting dysuria, flank pain and respiratory distress. She was found to be hypotensive in septic shock. A central IV access was obtained. She was started on norepinephrine, vasopressor therapy and broad-spectrum antibiotics were initiated after blood cultures were obtained. She was admitted to the Intensive Care Unit in critical condition. HOSPITAL COURSE: The patient was admitted to the ICU where she received broad- spectrum antibiotics, including Zosyn and vancomycin. Interventional Radiology was emergently consulted for percutaneous nephrostomy tube for source control; this was performed without complication. She received aggressive IV fluid resuscitation. She was weaned off pressor therapy. She presented with a creatinine of 4.3 on admission in the setting of septic shock. Nephrology consult was obtained. She did not require hemodialysis. Other complications from her septic shock included thrombocytopenia and transaminitis, all of which resolved at time of discharge. Her white blood cell count normalized. Both of her blood cultures, her urine culture, as well as the culture from her left kidney all grew E coli, sensitive to cefazolin. Her antibiotic regimen was narrowed to ceftriaxone. However, she developed a rash and was thus transitioned to ertapenem with plans to complete a total of 2 weeks of therapy. Her IV antibiotic stop date is November 19. She will need close outpatient followup with Nephrology for definitive management of her nephrostomy tube and nephrolithiasis. She also noted a recently diagnosed parotid mass for which she has planned followup with ENT physician. In addition, she was noted to have an elevated TSH of 9 with a normal free T4. She will need follow up with her primary care physician for consideration of treatment and followup. DISPOSITION: Patient is discharged home with home health services including PT , OT, and RN, as well as home antibiotic infusion therapy. FOLLOWUP: 1. Dr. Radha Bright, November 20 at [address] Esther Conway, Urology. Patient was instructed to call for an appointment within 3-5 days for definitive stone management and removal of her nephrostomy tube. 3. Primary care physician for followup on her subclinical hypothyroidism. 4. ENT physician to whom she has already been referred for followup on her parotid mass. DISCHARGE MEDICATIONS: Please see [employer] for completed outpatient medication list. New medications on discharge include: 1. Ertapenem 1 g IV daily, stop date November 19. 2. Percocet 1-2 tablets p.o. q.4 hours p.r.n., #10, no refills. 3. Tylenol. 4. Albuterol. 5. Tums. 6. Advair. She will continue all of her other outpatient medications as prescribed. /[id number]/MODL MTDD
== END 2016-11-16 12:58 | disposition home health service (06) | DRG 871 ==
LOC: F2N 04:44 → F1N 11-08 15:38
PROVIDERS: ADMIT Student in an Organized Health Care Education/Training Program; ATTEND Hospitalist
PROC: 02HV33Z Insertion of Infusion Device into Superior Vena Cava, Percutaneous Approach (ICD-10-PCS; 2016-11-05)
PROC: 0BH17EZ Insertion of Endotracheal Airway into Trachea, Via Natural or Artificial Opening (ICD-10-PCS; 2016-11-05)
PROC: 5A1945Z Respiratory Ventilation, 24-96 Consecutive Hours (ICD-10-PCS; 2016-11-05)
PROC: BT121ZZ Fluoroscopy of Left Kidney using Low Osmolar Contrast (ICD-10-PCS; principal; 2016-11-09)
PROC: 02HV33Z Insertion of Infusion Device into Superior Vena Cava, Percutaneous Approach (ICD-10-PCS; principal; 2016-11-09)
PROC: 0T9130Z Drainage of Left Kidney with Drainage Device, Percutaneous Approach (ICD-10-PCS; principal; 2016-11-09)
DX: A41.51 Sepsis due to Escherichia coli [E. coli] (principal); R65.21 Severe sepsis with septic shock; N39.0 Urinary tract infection, site not specified; B96.20 Unspecified Escherichia coli [E. coli] as the cause of diseases classified elsewhere; N20.0 Calculus of kidney; J96.01 Acute respiratory failure with hypoxia; N17.0 Acute kidney failure with tubular necrosis; E87.1 Hypo-osmolality and hyponatremia; D69.6 Thrombocytopenia, unspecified; L27.0 Generalized skin eruption due to drugs and medicaments taken internally; T36.1X5A Adverse effect of cephalosporins and other beta-lactam antibiotics, initial encounter; E66.01 Morbid (severe) obesity due to excess calories; Z68.43 Body mass index [BMI] 50.0-59.9, adult; R74.9 Abnormal serum enzyme level, unspecified; K11.9 Disease of salivary gland, unspecified; E03.9 Hypothyroidism, unspecified; Z16.23 Resistance to quinolones and fluoroquinolones; J45.909 Unspecified asthma, uncomplicated
CPT/HCPCS: 80305; 82947-QW; 96365; 96366; 97110-GP; 97116-GP; 97161-GP; 97165-GO; 97530-GO; 97530-GP; 97535-GO; C1729; C1751; C1769; J0330; J0610; J0690; J1100; J1335; J1644; J1650; J1940; J2405; J2543; J2704; J3010; J3370; J3475; P9035; Q9967

== ENCOUNTER 2016-11-19 15:36 | Emergency (ER) | payer MEDICAID ==
[2016-11-19 15:43] VITALS: BP 98/62
--- NOTE | 2016-11-19 16:16 | EDPHY ---
H & P Stated Complaint: R bicep PICC line site "red and swollen" Source: Patient, Family, Old records Exam Limitations: No limitations - Personal History Current Tetanus/Diphtheria Vaccine: Unsure Current Tetanus Diphtheria and Acellular Pertussis (TDAP): Unsure - Medical/Surgical History Hx Asthma: Yes Hx Chronic Respiratory Disease: No Hx Diabetes: No Hx Cardiac Disease: No Hx Renal Disease: No Hx Cirrhosis: Yes Hx Alcoholism: No Hx HIV/AIDS: No Hx Splenectomy or Spleen Trauma: No Other PMH: thyroid, liver complication unknown, asthma. [facility] 11/16/16- sepsis - Social History Smoking Status: Never smoked HPI/ROS: CHIEF COMPLAINT: Right arm pain and swelling HISTORY OF PRESENT ILLNESS: Patient complains of 3 days history of right arm pain and swelling. Mild-to- moderate pain. Constant duration. First noted this around midnight on Saturday night. Some redness that she noted. No numbness or tingling. The swelling has begun to spread distally toward the hand. No fever or chills. She has a PICC line in place with daily or depending due to urosepsis, recently discharged from this facility. She has had no fever. She has no chest pain or shortness of breath. No rest, pain or swelling in any other extremities. No other associated complaints or modifying factors. REVIEW OF SYSTEMS: Ten systems reviewed and are negative unless otherwise noted in the HPI PAST MEDICAL HISTORY: Recent sepsis due to UTI on daily ertapenem infusions. Scheduled to have the PICC line discontinue tomorrow PAST SURGICAL HISTORY: Reviewed SOCIAL HISTORY: Nonsmoker. Lives independently with her spouse FAMILY HISTORY: Noncontributory EXAMINATION General Appearance: Alert, no distress Head: normocephalic, atraumatic Eyes: Pupils equal and round, no conjunctival pallor or injection ENT, Mouth: Mucous membranes moist Neck: Normal inspection, supple, non-tender Respiratory: Lungs are clear to auscultation. No wheezing, rhonchi or crackles Cardiovascular: Regular rate and rhythm. No murmur. Pulses intact distally with symmetric radial pulses 2+ Gastrointestinal: Abdomen is soft and nontender Back: non-tender, no bony abnormalities Neurological: A&O, nonfocal Skin: Warm and dry, no rash. No petechiae or purpura. No erythema or cellulitis. Extremities: Motion is symmetric in the arms and legs. The right upper extremity has a PICC line in place with normal appearance of the insertion site. There is mild edema about the arm. I do not appreciate any fluctuance, erythema, induration. The dressing is clean, dry and intact. Psychiatric: Mood and affect normal DIFFERENTIAL DIAGNOSES: Including but not limited to extremity edema, lymphedema, DVT, extravasation MDM: 4:05 p.m. Right upper extremity pain and swelling with PICC line present. There is no erythema but given the presence of the line I have ordered ultrasound to rule out DVT. She is neuro intact. Will consult infectious disease prior to discontinuation of the PICC line. Will await DVT study prior to discontinuation of PICC line. 4:15 p.m. Case discussed with Dr. Raymond Wilde. If there is no DVT in the extremity we have permission to DC the PICC line. 5:00 p.m. Notified by radiologist Dr. Abarca. Extensive thrombus in the right upper extremity. This spans from the insertion of the PICC line to the right innominate vein. Interventional radiologist will be consulted. Discussed with Dr. Sloan. Patient has been notified. Plan for admission the hospital. 5:15 p.m. Case has been discussed with hospitalist Dr. Yu. She has been admitted. Still waiting to discuss with interventional radiology for lysis versus heparin/ lovenox treatment. 5:[address] Sloan has discussed with Dr. Brush and Dr. Yu. He informs me that their plan is for treatment of the patient on outpatient basis. Please see his note for further details. He has given permission for the PICC line to be removed. I have verbalized this to the nurse and they will DC the PICC line. Dr. Sloan will discuss disposition with the patient. 6:00 p.m. I discussed the disposition plan with mental health case manager Elaina WILSON. She will visit with the patient prior to her being discharged home. She will arrange for appointment at [facility] on Saturday or . This will be confirmed 1st thing tomorrow morning. If the patient is unable to be seen on Saturday or , she must return to ED for re-evaluation. She will keep her appointment tomorrow with infectious disease at [facility]. Patient is comfortable with this plan. She still has no chest pain or shortness of breath. Vital signs remained stable. Discharge home in stable condition with strict ED precautions. (Mesfin Cavazos) Constitutional: Initial Vital Signs Temperature (C) 36.6 C 11/19/16 15:40 Heart Rate 108 H 11/19/16 15:40 Respiratory Rate 16 11/19/16 15:40 Blood Pressure 98/62 L 11/19/16 15:40 O2 Sat (%) 95 11/19/16 15:40 O2 Delivery Mode Room Air Allergies/Adverse Reactions: cefazolin Allergy (Unknown, Unverified 11/16/16 12:54) Rash Home Medications: Medication Instructions Recorded Albuterol [Ventolin Hfa Inhaler] 2 puffs IH Q6HRS PRN mdi 11/12/16 Ertapenem [INVanz] 1 gm IV DAILY vial 11/12/16 oxyCODONE/APAP 5/325 [Percocet 2 tab PO Q4HRS PRN tab 11/12/16 5/325 (*)] Apixaban [Eliquis] 10 mg PO Q12 #14 tablet 11/19/16 Medical Decision Making - Diagnostics Imaging Results: Imaging Impressions Extremity Venous Study 11/19/16 16:06 Impression: Right arm venous thrombosis related to the PICC line. This patient may be a good candidate for thrombolytic therapy. Results called to Mesfin Cavazos at 4:57. Differential Diagnosis: Differential for right arm swelling considered including but not limited to compartment syndrome DVT, arterial occlusion, cellulitis. (Victor Manuel Sloan) Other Provider: PHYSICIAN DOCUMENTATION: The patient was evaluated and managed by the Physician Air Drill Operator and myself. I have reviewed the chart and agree with the findings and plan of care as documented. In addition, I examined the patient myself at 1745. History confirmed as PICC line was present for IV antibiotics after recent urosepsis, confirmed with Dr. Wilde that it is okay to DC the line today. Physical findings as follows: Normal radial pulse, normal motor and sensory. Discussed with interventional radiologist Dr. Brush at 5:05 p.m. and 17:28. He reviewed the ultrasound and gave his opinion. Recommends removal of PICC, and outpatient treatment with oral Eliquis. Discussed with Dr. Yu hospitalist who agrees with the plan. Discussed in detail risk benefit and alternatives of anticoagulation with the patient and consented. Eliquis 10 mg p. o. twice daily and outpatient clinic follow-up to be arranged by our mental health case manager this week for continuation of anticoagulation. She does not have signs or symptoms of pulmonary embolism in our emergency department. The patient says she is comfortable with this plan. Warned to return immediately for chest pain or shortness of breath or worsening right arm symptoms. Warned that anticoagulation will need to be continued for several months, duration to be determined by follow-up primary care physician. I am the secondary supervising physician. (Victor Manuel Sloan) - Data Points Laboratory Results: Laboratory Results 11/19/16 17:30 11/19/16 17:30 11/19/16 11/19/16 11/19/16 17:30 17:30 17:30 WBC RBC Hgb Hct MCV MCH MCHC RDW Plt Count MPV Neut % (Auto) Lymph % (Auto) [place] % (Auto) Eos % (Auto) Baso % (Auto) Nucleat RBC Rel Count Absolute Neuts (auto) Absolute Lymphs (auto) Absolute Monos (auto) Absolute Eos (auto) Absolute Basos (auto) Absolute Nucleated RBC Immature Gran % Immature Gran # PT 13.9 SEC SEC (12.0-15.0) INR 1.08 (0.83-1.16) APTT 28.1 SEC SEC (23.0-38.0) Sodium 136 mEq/L mEq/L (134-144) Potassium 4.5 mEq/L mEq/L (3.5-5.2) Chloride 103 mEq/L mEq/L (97-110) Carbon Dioxide 21 mEq/l L mEq/l (22-31) Anion Gap 12 mEq/L mEq/L (8-16) BUN 10 mg/dL mg/dL (7-23) Creatinine 0.7 mg/dL mg/dL (0.6-1.0) Estimated GFR > 60 Glucose 78 mg/dL mg/dL (70-100) Calcium 8.8 mg/dL mg/dL (8.5-10.4) Beta HCG, Qual NEGATIVE 11/19/16 17:30 WBC 7.73 10^3/uL 10^3/uL (3.80-9.50) RBC 4.52 10^6/uL 10^6/uL (4.18-5.33) Hgb 13.8 g/dL g/dL (12.6-16.3) Hct 40.8 % % (38.0-47.0) MCV 90.3 fL fL (81.5-99.8) MCH 30.5 pg pg (27.9-34.1) MCHC 33.8 g/dL g/dL (32.4-36.7) RDW 12.7 % % (11.5-15.2) Plt Count 434 10^3/uL H 10^3/uL (150-400) MPV 9.5 fL fL (8.7-11.7) Neut % (Auto) 62.2 % % (39.3-74.2) Lymph % (Auto) 26.9 % % (15.0-45.0) [place] % (Auto) 7.8 % % (4.5-13.0) Eos % (Auto) 1.0 % % (0.6-7.6) Baso % (Auto) 0.8 % % (0.3-1.7) Nucleat RBC Rel Count 0.0 % % (0.0-0.2) Absolute Neuts (auto) 4.81 10^3/uL 10^3/uL (1.70-6.50) Absolute Lymphs (auto) 2.08 10^3/uL 10^3/uL (1.00-3.00) Absolute Monos (auto) 0.60 10^3/uL 10^3/uL (0.30-0.80) Absolute Eos (auto) 0.08 10^3/uL 10^3/uL (0.03-0.40) Absolute Basos (auto) 0.06 10^3/uL 10^3/uL (0.02-0.10) Absolute Nucleated RBC 0.00 10^3/uL 10^3/uL (0-0.01) Immature Gran % 1.3 % H % (0.0-1.1) Immature Gran # 0.10 10^3/uL 10^3/uL (0.00-0.10) PT INR APTT Sodium Potassium Chloride Carbon Dioxide Anion Gap BUN Creatinine Estimated GFR Glucose Calcium Beta HCG, Qual Medications Given: Discontinued Medications Apixaban (Eliquis) 10 mg PO EDNOW ONE Stop: 11/19/16 17:45 Last Admin: 11/19/16 18:10 Dose: 10 mg Departure - Departure Disposition: Home, Routine, Self-Care Clinical Impression: Deep vein thrombosis (DVT) of right upper extremity Qualifiers: Affected thrombotic vein of extremity: brachial Chronicity: acute Qualified Code(s): I82.621 - Acute embolism and thrombosis of deep veins of right upper extremity Condition: Good Instructions: Deep Venous Thrombosis (ED) Additional Instructions: limited activity to right upper arm. Return to ER for any chest pain or shortness of breath. Referrals: [facility],. [Clinic] - As per Instructions Prescriptions: Apixaban [Eliquis] 10 mg PO Q12 #14 tablet
[2016-11-19 17:51] LABS: % IMMATURE GRANULYOCYTES 1.3 % (0.0-1.1); ADD DIFF? NO; ADD MORPH? NO; ADD SCAN? NO; ATYPICAL LYMPHOCYTE FLAG 50 (0-99); FRAGMENT RBC FLAG 0 (0-99); HEMATOCRIT 40.8 % (38.0-47.0); HEMOGLOBIN 13.8 g/dL (12.6-16.3); LEFT SHIFT FLG 10 (0-99); LIPEMIA HEMOLYSIS FLAG 90 (0-99); MEAN CELL HEMOGLOBIN 30.5 pg (27.9-34.1); MEAN CELL HEMOGLOBIN CONCENTR. 33.8 g/dL (32.4-36.7); MEAN CELL VOLUME 90.3 fL (81.5-99.8); MEAN PLATELET VOLUME 9.5 fL (8.7-11.7); PLATELET CLUMPS FLAG 0 (0-99); PLATELET COUNT 434 10^3/uL (150-400); RED BLOOD CELL COUNT 4.52 10^6/uL (4.18-5.33); RED CELL DISTRIBUTION WIDTH 12.7 % (11.5-15.2)
[2016-11-19 17:59] LABS: INR 1.08 (0.83-1.16); PROTIME(PATIENT) 13.9 SEC (12.0-15.0)
[2016-11-19 18:00] LABS: APTT 28.1 SEC (23.0-38.0)
[2016-11-19 18:07] LABS: ANION GAP 12 mEq/L (8-16); CALCIUM 8.8 mg/dL (8.5-10.4); CARBON DIOXIDE 21 mEq/l (22-31); CHLORIDE 103 mEq/L (97-110); CREATININE 0.7 mg/dL (0.6-1.0); GLOMERULAR FILTRATION RATE > 60; GLUCOSE 78 mg/dL (70-100); POTASSIUM 4.5 mEq/L (3.5-5.2); SODIUM 136 mEq/L (134-144)
[2016-11-19] MEDS: APIXABAN 5 MG TAB PO ONE (18:10)
[2016-11-19 18:36] VITALS: PULSE 90; RESP 18; TEMP 98.2; O2SAT 96
--- NOTE | 2016-11-20 10:38 | ASMTCMCOM ---
CM Note CM Note Notes: Spoke with patient and her boyfriend,Jluis, and another friend at bedside. Patient requesting assistance with getting an appointment with a PCP in the next couple of days. This CM called and was able to get patient an appointment at [facility] tomorrow 11/21 at 10a.m (patient aware she needs to arrive at 0940). Patient says she will be able to make the appointment; [facility] address and phone number provided. CM available for further assistance. Date Signed: 11/20/2016 10:37 AM Electronically Signed By:Elaina Peters RN
== END 2016-11-19 18:30 | disposition home or self-care (01) ==
LOC: UNDOADMIN 17:12
DX: I82.621 Acute embolism and thrombosis of deep veins of right upper extremity (principal); J45.909 Unspecified asthma, uncomplicated; Z79.01 Long term (current) use of anticoagulants; Y71.2 Prosthetic and other implants, materials and accessory cardiovascular devices associated with adverse incidents

== ENCOUNTER 2016-12-06 07:51 | Day surgery (SDC) | payer MEDICAID ==
[~2016-12-06 07:51] MED LIST: ERTAPENEM 1 GM in NS 100 ML IV ONE
[2016-12-06] MEDS ORDERED: LR 1,000 ML IV ONE (08:29)
[2016-12-06] MEDS ORDERED: LIDOCAINE 1% 2 ML INJ ID PRN (08:29)
--- NOTE | 2016-12-06 09:06 | PDHPUP ---
History & Physical Update H&P update statement: This history and physical update is based on an assessment of the patient which was completed after admission or registration (within 24 hours), but prior to the surgery/procedure. H&P update: no change in patient's condition since H&P completed
[2016-12-06] MEDS ORDERED: MIDAZOLAM 2 MG/2 ML VIAL IVP ONE (09:33)
[2016-12-06] MEDS ORDERED: SCOPOLAMINE HYDROBROMIDE 1 MG/3 DAYS PATCH TD ONE ×2 (09:33→11:29)
--- NOTE | 2016-12-06 09:34 | PDANEPAE ---
ANE History of Present Illness patient presents for ureteroscopy and nephrostomy tube removal ANE Past Medical History - Cardiovascular History Hx Hypertension: No Hx Arrhythmias: No Hx Chest Pain: No Hx Coronary Artery / Peripheral Vascular Disease: No Hx CHF / Valvular Disease: No Hx Palpitations: No Cardiovascular History Comment: clot to right arm from elbow to chest from picc - Pulmonary History Hx COPD: No Hx Asthma/Reactive Airway Disease: Yes Hx Recent Upper Respiratory Infection: No Hx Oxygen in Use at Home: No Hx Sleep Apnea: No Sleep Apnea Screening Result - Last Documented: Negative Pulmonary History Comment: asthma- doesn't use inhaler much - Neurologic History Hx Cerebrovascular Accident: No Hx Seizures: No Hx Dementia: No - Endocrine History Hx Diabetes: No Endocrine History Comment: hashimotos- untreated - Renal History Hx Renal Disorders: Yes Renal History Comment: kidney stone. left pyleonephritis that went septic. current nephrostomy tube - Liver History Hx Hepatic Disorders: No - Neurological & Psychiatric Hx Hx Neurological and Psychiatric Disorders: Yes Neurological / Psychiatric History Comment: panic disorder- untreated - Cancer History Hx Cancer: No - Congenital Disorder History Hx Congenital Disorders: No - GI History Hx Gastrointestinal Disorders: Yes Gastrointestinal History Comment: IBS- no medications - Other Health History Other Health History: wears reading glasses - Chronic Pain History Chronic Pain: No - Surgical History Prior Surgeries: nephrostomy tube placed 11/05/16. judy. c-sections. laprascopic surgery to remove cyst and another one for endometriosis ANE Review of Systems Review of Systems: - Exercise capacity METS (RN): 3 METS ANE Patient History - Allergies Allergies/Adverse Reactions: cefazolin Allergy (Unknown, Verified 12/06/16 09:10) Rash - Home Medications Home medications: home medication list seen and reviewed Home Medications: Apixaban [Eliquis] 11/30/16 [Last Taken 12/05/16 21:00] Sulfamethoxazole/Trimethoprim 11/30/16 [Last Taken 12/05/16 18:00] oxyCODONE/APAP 5/325 [Percocet 5/325 (*)] 11/30/16 [Last Taken 12/05/16 21:00] - NPO status NPO Status: no food or drink >8 hours NPO Since - Liquids (Date): 12/05/16 NPO Since - Liquids (Time): 19:30 NPO Since - Solids (Date): 12/05/16 NPO Since - Solids (Time): 00:00 - Anes Hx Anes Hx: no prior problems - Smoking Hx Smoking Status: Never smoked - Family Anes Hx Family Hx Anesthesia Complications: none ANE Labs/Vital Signs - Vital Signs Blood Pressure: 119/82 Heart Rate: 92 Respiratory Rate: 16 O2 Sat (%): 95 Height: 160.02 cm Weight: 122.47 kg ANE Physical Exam - Airway Neck exam: FROM Mallampati Score: Class 2 Mouth exam: normal dental/mouth exam - Pulmonary Pulmonary: no respiratory distress - Cardiovascular Cardiovascular: regular rate and rhythym - ASA Status ASA Status: III ANE Anesthesia Plan Anesthesia Plan: general endotracheal anesthesia (RBA discussed)
[2016-12-06] MEDS ORDERED: fentaNYL 100 MCG/2 ML INJ ONE ×2 (09:39→11:26)
[2016-12-06] MEDS ORDERED: PROPOFOL 200 MG/20 ML VIAL ONE (09:39)
[2016-12-06] MEDS ORDERED: SUCCINYLCHOLINE CHLORIDE*ANESTHESIA ONLY*200 MG/10 ML SYR IVP ONE (09:44)
[2016-12-06] MEDS ORDERED: LIDOCAINE 2% 5 ML SDV ONE (09:46)
[2016-12-06] MEDS ORDERED: LIDOCAINE 2% JELLY 20 ML (UROJECT) ONE (09:55)
[2016-12-06] MEDS ORDERED: IOPAMIDOL (ISOVUE-300) 150 ML BTL ONE (09:56)
[2016-12-06] MEDS ORDERED: ONDANSETRON 4 MG/2 ML VIAL ONE ×2 (10:16→11:29)
[2016-12-06] MEDS ORDERED: DEXAMETHASONE 4 MG/ML VIAL ONE (10:16)
[2016-12-06] MEDS ORDERED: OXYCODONE/APAP 5/325 TAB PO PRN (10:44)
[2016-12-06] MEDS ORDERED: HYDROCODONE/APAP 5/325 TAB PO PRN (10:44)
[2016-12-06] MEDS ORDERED: ONDANSETRON 4 MG/2 ML VIAL IVP PRN (10:44)
[2016-12-06] MEDS ORDERED: NALOXONE HCL 0.4 MG/ML INJ IVP PRN (10:44)
[2016-12-06] MEDS ORDERED: LR 500 ML IV PRN (10:44)
[2016-12-06] MEDS ORDERED: SUGAMMADEX SODIUM 200 MG/2 ML VIAL IVP ONE (11:02)
[2016-12-06] MEDS ORDERED: BACITRACIN ZINC 14.2 GM OINTTUBE TP ONE (11:03)
--- NOTE | 2016-12-06 11:22 | POSTOPPROG ---
Post Op Note Date of Operation: 12/06/16 Surgeon: Esther Conway (# [id number]) Anesthesia: GET(General Endotracheal) Pre-op Diagnosis: Left proximal ureteral calculus, s/p neph. tube placement Post-op Diagnosis: Left proximal ureteral calculus, s/p neph. tube placement Procedure: Left ureteroscopy w/ holmium laser, neph. tube removal, stent placement Findings: See op note Inf/Abcess present in the surg proc area at time of surgery?: No EBL: Minimal Complications: None Drains: Other (4.7 Fr. x 24 cm left ureteral stent) Specimen(s): None
[2016-12-06] MEDS: fentaNYL 100 MCG/2 ML INJ IVP PRN ×3 (11:28→11:48)
[2016-12-06] MEDS ORDERED: PHENAZOPYRIDINE HCL 200 MG TAB PO SCH (11:30)
[2016-12-06] MEDS ORDERED: PHENAZOPYRIDINE HCL 200 MG TAB PO ONE (11:30)
--- NOTE | 2016-12-06 11:32 | POSTANESTH ---
Post Anesthetic Evaluation Cardiovascular Status: Normal, Stable Respiratory Status: Normal, Stable Level of Consciousness/Mental Status: Can Participate in Eval Pain Control: Adequate, Prn Tx Ordered Nausea/Vomiting Control: Adequate, Prn Tx Ordered Complications Possibly Related to Anesthesia: None Noted
[2016-12-06] MEDS ORDERED: OXYCODONE/APAP 5/325 TAB ONE (11:44)
[2016-12-06 12:13] VITALS: BP 133/85; PULSE 91; RESP 18; TEMP 97.9; O2SAT 94
--- NOTE | 2016-12-06 13:25 | GOP ---
[f rep st] OPERATIVE REPORT DATE OF OPERATION: 12/06/2016 SURGEON: Esther Conway MD ANESTHESIA: General endotracheal. PREOPERATIVE DIAGNOSIS: Symptomatic left proximal ureteral calculus, status post nephrostomy tube pl acement for septic shock. POSTOPERATIVE DIAGNOSIS: Symptomatic left proximal ureteral calculus, status post nephrostomy tube p lacement for septic shock. PROCEDURE PERFORMED: 1. Cystourethroscopy, left retrograde pyelography. 2. Left ureteroscopy and nephroscopy with holmium laser calculus lithotripsy. 3. Left nephrostomy tube removal with fluoroscopic guidance. 4. Left ureteral stent placement (4.7-Venezuelan by 24 cm). FINDINGS: Left proximal ureteral calculus which was addressed with laser lithotripsy within the jackson l collecting system, as noted in the operative report. SPECIMENS: None. ESTIMATED BLOOD LOSS: Minimal. INDICATIONS: This woman was treated recently in the hospital for septic shock related to a left prox imal ureteral calculus. She has recovered from the infection and now presents for definitive operati ve management of the ureteral calculus. The indications for the procedures as well as potential risk s and complications, were discussed with the patient preoperatively. She appeared to understand, her questions were answered, and she wished to proceed. Written informed surgical consent was zheng r obtained. DESCRIPTION OF PROCEDURE: The patient is brought to the operating room and administered general endo tracheal anesthesia. She was carefully placed in the dorsal lithotomy position on the cystoscopic ta ble. The genital area was sterilely prepped with Betadine scrub and paint, and then draped in usual sterile fashion. Cystoscopy was performed with a 30-degree lens through a 22-Venezuelan sheath. Urethra was unremarkable. Bladder revealed a somewhat small capacity but was otherwise unremarkable. Urete ral orifices were normal in regard to shape and position along the trigone. Cone-tip ureteral cathet er was used to perform retrograde pyelography on the left side. Fluoroscopy revealed a calculus just distal to the ureteropelvic junction. Nephrostomy tube was noted within a lower pole calyx and infu ndibulum. No significant hydronephrosis was appreciated. No other filling defects were appreciated within the renal collecting system. I then passed a 0.035-inch hydrophilic guidewire up the left ureter until it was seen within the jackson l collecting system fluoroscopically. I then dilated the entire length of the ureter distal to the p erceived location of the calculus with a 10 cm balloon by maintaining a pressure of 16 atmospheres fo r about 4 minutes. Two separate inflations and deflations were required to dilate the entire length of the ureter. After doing this, the location of the calculus was not definitively noted. The cysto scope was removed and semi-rigid ureteroscopy was performed alongside the guidewire. The ureteroscop e was advanced all the way to the renal pelvis and no calculus was seen within the ureter. I decided to proceed with flexible ureteroscopy, as it was likely the calculus migrated proximally into the re nal collecting system. A 0.035 inch superstiff Amplatz guidewire was advanced through the ureterosco pe and into the renal collecting system as noted fluoroscopically. The ureteroscope was removed, the reby leaving [address] Using fluoroscopic guidance, a 35 cm hydrophilic ureteral access sheath was advanced over the Amplatz guidewire until the proximal extent of the sheath was at the ur eteropelvic junction. The inner obturator and Amplatz guidewire were removed, thereby keeping the ou ter portion of the access sheath and the secondary guidewire in place. A flexible nephroscopy was pe rformed through the ureteral access sheath. The calculus was ultimately identified next to the pigta il of the nephrostomy tube in the lower pole. A 200 micron holmium laser fiber was used to fragment this calculus into minute pieces, none of which were removed. The ureteroscope and ureteral access s jo were then removed in tandem. Ureter revealed some inflammatory changes but was otherwise unrem arkable. I then proceeded to remove the nephrostomy tube. The pigtail was released and the stitch cut from th e skin surface holding nephrostomy tube in place. The Amplatz guidewire was advanced through the nep hrostomy tube until it was seen within the renal collecting system fluoroscopically. Then, under flu oroscopic guidance, the nephrostomy tube was removed intact without complication. The implants and g uidewire were also removed. I then returned to the patient's perineum after replacing my gloves and gown. The cystoscope was france k loaded over the existing remaining guidewire. A 5-Venezuelan open-ended ureteral catheter was also adv anced over the guidewire until it was seen within the proximal ureter fluoroscopically. The guidewir e was temporarily removed and contrast was reinjected into the renal collecting system to opacify it for stent placement purposes. The ureteral catheter was then removed and a 4.7-Venezuelan x 24 cm hydrop hilic ureteral stent advanced over the guidewire until it was properly positioned as seen fluoroscopi sami in the kidney and cystoscopically in the bladder. The bladder was then drained of all return w hich was slightly pink. The instruments were removed, 20 cc of 2% lidocaine was injected transurethr ally and a 16-Venezuelan Nunez catheter was then inserted to gravity drainage without complication. The patient was then awakened, extubated, transferred to her bed. At this point, she was rolled over on a gurney to expose her left flank. The nephrostomy site was dressed with bacitracin ointment, follow ed by 4x4s and Hypafix tape. The patient was then transferred to the recovery room. She tolerated t he procedure well overall. COMPLICATIONS: None. DISPOSITION: She was transferred to the recovery room in stable condition. She will be discharged once meeting standard outpatient criteria with instructions to remove the Nunez catheter tomorrow aft kiesha, then return to my office in approximately 2 weeks for ureteral stent removal. /[id number]/MODL
== END 2016-12-06 13:06 | disposition home or self-care (01) ==
LOC: FSGY 07:51
PROVIDERS: ATTEND Specialist
PROC: 0TP9X0Z Removal of Drainage Device from Ureter, External Approach (ICD-10-PCS; principal; 2016-12-06 09:30)
PROC: 0T978ZZ Drainage of Left Ureter, Via Natural or Artificial Opening Endoscopic (ICD-10-PCS; principal; 2016-12-06 09:30)
PROC: BT1F1ZZ Fluoroscopy of Left Kidney, Ureter and Bladder using Low Osmolar Contrast (ICD-10-PCS; principal; 2016-12-06 09:30)
PROC: 0TF78ZZ Fragmentation in Left Ureter, Via Natural or Artificial Opening Endoscopic (ICD-10-PCS; principal; 2016-12-06 09:30)
DX: N20.1 Calculus of ureter (principal); J45.909 Unspecified asthma, uncomplicated; Z86.718 Personal history of other venous thrombosis and embolism; Z86.19 Personal history of other infectious and parasitic diseases
CPT/HCPCS: 50389; 52356; 76001; C1726; C1758; C1769; C1894; C2625; J0330; J1100; J1335; J2250; J2405; J2704; J3010; Q9967

== ENCOUNTER 2017-06-06 10:05 | Observation (INO) | payer MEDICAID ==
[2017-06-06] MEDS ORDERED: IOPAMIDOL (ISOVUE-300) 100 ML BTL ONE (11:09)
[2017-06-06] MEDS ORDERED: LIDOCAINE 2% JELLY 20 ML (UROJECT) ONE (11:09)
[2017-06-06] MEDS ORDERED: fentaNYL 100 MCG/2 ML INJ IVP PRN (11:59)
[2017-06-06] MEDS ORDERED: MIDAZOLAM 2 MG/2 ML VIAL IVP PRN (11:59)
[2017-06-06] MEDS ORDERED: NALOXONE HCL 0.4 MG/ML INJ IVP PRN ×2 (11:59→13:44)
[2017-06-06] MEDS ORDERED: MEPERIDINE 25 MG/ML SYR IVP PRN (11:59)
[2017-06-06] MEDS ORDERED: FLUMAZENIL 0.5 MG/5 ML MDV IVP PRN (11:59)
[2017-06-06] MEDS ORDERED: NS 1,000 ML IV SCH ×2 (12:00→20:00)
--- NOTE | 2017-06-06 12:08 | PDGENHP ---
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 Currently receiving daily XRT. Worsening gag reflex prevents sufficient oral intake. Gastrostomy tube is requestion. Currently having to go to [facility] daily for IV infusion of fluids (1 liter bags x2 per daughter). Pertinent Past, Social, Family History: Non-contributory Relevant Physical Exam: Abd obese, NDNT, postsurgical changes to left neck Cardiorespiratory Assessment: RRR, normal resp effort and excursions
[2017-06-06] MEDS ORDERED: CLINDAMYCIN 900 MG/DEXTROSE 50 ML IV ONE (12:19)
[2017-06-06 12:24] LABS: INR 1.05 (0.83-1.16); PROTIME(PATIENT) 13.9 SEC (12.0-15.0)
[2017-06-06] MEDS ORDERED: SCOPOLAMINE HYDROBROMIDE 1 MG/3 DAYS PATCH TD ONE ×2 (12:34→12:40)
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
[2017-06-06] MEDS ORDERED: LIDOCAINE 2% 5 ML SDV ONE (12:42)
[2017-06-06] MEDS ORDERED: fentaNYL 100 MCG/2 ML INJ ONE ×2 (12:42)
[2017-06-06] MEDS ORDERED: DEXAMETHASONE 4 MG/ML VIAL ONE (12:42)
[2017-06-06] MEDS ORDERED: PROPOFOL/EMULSION 500 MG/50 ML BOTTLE IV ONE (12:42)
[2017-06-06] MEDS ORDERED: ROCURONIUM 50 MG/5 ML VIAL ONE (12:43)
[2017-06-06] MEDS ORDERED: ONDANSETRON 4 MG/2 ML VIAL ONE (13:41)
[2017-06-06] MEDS ORDERED: ALBUTEROL 3 ML DEYVIAL IH PRN (13:44)
[2017-06-06] MEDS ORDERED: DIAZEPAM 5 MG/ML 1 ML SYR IVP PRN (13:44)
[2017-06-06] MEDS ORDERED: PROMETHAZINE HCL 25 MG/ML INJ IVP PRN ×2 (13:44→14:55)
[2017-06-06] MEDS ORDERED: LR 500 ML IV PRN (13:44)
[2017-06-06] MEDS ORDERED: NEOSTIGMINE METHYLSULFATE 3 MG/3 ML SYR ONE (13:54)
--- NOTE | 2017-06-06 14:30 | POSTANESTH ---
Post Anesthetic Evaluation Cardiovascular Status: Normal, Stable Respiratory Status: Normal, Stable Level of Consciousness/Mental Status: Can Participate in Eval, Mildly Sleepy, Arousable Pain Control: Adequate, Prn Tx Ordered Nausea/Vomiting Control: Adequate, Prn Tx Ordered Complications Possibly Related to Anesthesia: None Noted
[2017-06-06] MEDS ORDERED: PROMETHAZINE HCL 25 MG/ML INJ ONE (14:43)
[2017-06-06] MEDS ORDERED: OXYCODONE/APAP 5/325 TAB PO PRN (14:55)
[2017-06-06] MEDS ORDERED: ACETAMINOPHEN 325 MG TAB PO PRN (14:55)
[2017-06-06] MEDS ORDERED: ONDANSETRON DISINTEGRATING 4 MG TAB PO PRN (14:55)
[2017-06-06] MEDS ORDERED: D5W 1/2 NS 1,000 ML IV SCH (15:00)
--- NOTE | 2017-06-06 15:44 | GHP ---
[f rep st] HISTORY AND PHYSICAL DATE OF ADMISSION: 06/06/2017 CHIEF COMPLAINT: Status post gastrostomy tube placement. HISTORY OF PRESENT ILLNESS: This is a 56-year-old female, with parotid gland cancer who is currently undergoing chemotherapy and XRT, managed by Dr. Prakash. Today, she had a gastrostomy tube placed. She was admitted for postop care. She had this mass discovered approximately 8 months ago. It was initially thought to be benign. She eventually had this biopsied, which was positive for HPV positive parotid gland cancer. She had this resected, along with significant lymph node dissection from her neck by Dr. Crum at [place]. Most recently, she has been undergoing chemotherapy with cisplatin and XRT. She has approximately 2 more weeks of XRT. Over the last week, she has had significant trouble tolerating orals. She has a strong gag reflex which triggers her to cough up anything that she eats. She has been feeling a little bit lightheaded , some nausea with no vomiting. I am seeing her postop in the PACU. She tells me that her abdomen is slightly tender. She has not had any fevers. PAST MEDICAL/SURGICAL HISTORY: 1. Parotid gland cancer as above. 2. Hypothyroid. 3. Cholecystectomy. 4. Urosepsis requiring nephrostomy tube placement last November. MEDICATIONS: Please see medication reconciliation. ALLERGIES: Cefazolin and lactulose. FAMILY HISTORY: Her mother had gallbladder cancer. SOCIAL HISTORY: She does not drink alcohol. She has never smoked. She is using cannabis oil for nausea, which she finds effective. REVIEW OF SYSTEMS: A 10-point review of systems is conducted and is negative except per HPI. PHYSICAL EXAM: VITAL SIGNS: Blood pressure 131/93, respiratory rate 16, heart rate 82, saturating 98% on room air, temperature 37.2. GENERAL: Pleasant female who is resting. She appears comfortable, no acute distress. NECK: Left -sided neck scar, quite significant. There is no surrounding erythema. This appears to be healing well. CARDIOVASCULAR: Regular rate and rhythm. No murmurs, rubs, or gallops. PULMONARY: Lungs clear to auscultation bilaterally. ABDOMEN: Soft. She has a recently placed PEG tube. There is mild bleeding around the PEG tube placement site. There is no rebound or guarding. SKIN: No rash. : No Nunez. NEUROLOGIC: Alert and oriented x3. She is moving all extremities. PSYCHIATRIC: Normal mood and affect. LABS: Platelets are 128. INR 1.0. DATA: 1. I reviewed her chart, including her previous hospitalization for urosepsis. 2. Reviewed her pathology, which is positive for malignancy as well as positive for HPV. 3. Reviewed her chest and abdominal CT scan from last November. Chest CT scan was negative. Abdominal and pelvic CT scan showed left renal obstruction due to nephrolithiasis with urinary extravasation. IMPRESSION AND PLAN: A 56-year-old female, status post gastrostomy tube placement today, admitted for postop management. 1. Status post gastrostomy tube: recommends bowel rest tonight. Would touch base with him tomorrow regarding when it is appropriate to start enteral feedings. Will keep her n.p.o., provide her with IV fluids. 2. Dehydration: She has not been taking much p.o. for the last week. Will check a set of labs now. Continue IV hydration. 3. Parotid gland cancer: She is followed by Dr. Prakash. She is currently getting chemo as well as radiation. Would discuss with Oncology tomorrow regarding ongoing management. She had a PICC placed today, might be useful to keep PICC in place so she can get ongoing chemotherapy. Apparently, she did have a right arm deep vein thrombosis that was associated with her PICC. Would make sure this is okay with Oncology. She has been getting chemo through peripheral IV to date. 4. Hypothyroid: Continue her Synthroid. 5. Deep venous thrombosis prophylaxis: Will give her Lovenox. 6. Code status is full code. She tells me goal of her current cancer treatment is curative. /[id number]/MODL MTDD
[2017-06-06 18:56] LABS: PLATELET COUNT 106 10^3/uL (150-400)
[2017-06-06] MEDS ORDERED: LORazepam 0.5 MG TAB PO PRN (19:54)
--- NOTE | 2017-06-06 21:02 | PDRADPN ---
Radiology Procedure Note Date of Procedure: 06/06/17 Radiologist: Rangel Andrea Anesthesiologist: Feliz Anesthesia: GET(General Endotracheal) Pre-op Diagnosis: Left parotid malignancy Post-op Diagnosis: Same Indication: Not tolerating oral feeds Procedure: Gastrostomy tube, LLE PICC Finding(s): See dictated report Inf/Abcess present in the surg proc area at time of surgery?: No EBL: Minimal Complications: No immediate Drains: Other (20-Fr gastrostomy)
[2017-06-06] MEDS: ONDANSETRON 4 MG/2 ML VIAL IVP PRN (23:56)
[2017-06-07] MEDS ORDERED: LEVOTHYROXINE 25 MCG TAB PO SCH (06:00)
[2017-06-07] MEDS: ONDANSETRON 4 MG/2 ML VIAL IVP PRN (08:28)
[2017-06-07] MEDS ORDERED: ENOXAPARIN 40 MG/0.4 ML SYR SC SCH (09:00)
--- NOTE | 2017-06-07 12:14 | ASMTCMCOM ---
CM Note CM Note Notes: Pt admitted following IR procdeures to put in G tube and PICC line. [facility] had previously been contacted to provide services for pt. Spoke with Carine at [facility] to get their nutrition order signed by Dr Simpson. Pt will need PICC line flushes as well. Cm to follow. Date Signed: 06/07/2017 12:13 PM Electronically Signed By:Tabatha White LCSW
[2017-06-07] MEDS ORDERED: FAMOTIDINE 20 MG TAB TUBE ONE (14:30)
[2017-06-07] MEDS ORDERED: LORazepam 0.5 MG TAB TUBE PRN (15:30)
[2017-06-07] MEDS ORDERED: OXYCODONE/APAP 5/325 TAB TUBE PRN (15:30)
[2017-06-07] MEDS ORDERED: ACETAMINOPHEN 325 MG TAB TUBE PRN (15:30)
--- NOTE | 2017-06-07 15:35 | SOAPPROG ---
SOAP Progress Note Assessment/Plan: Assessment: 56 yo F w left parotid malignancy s/p resection w inability to tolerated oral feeds resulting in weight loss and dehydration now s/p gastrostomy tube placement POD#1. Exam benign and pain controlled. Plan: 1. Ok to begin small volume tube feeds. Discontinue and seek medical attention if peritoneal signs develop. 2. Of feeds tolerated, Ok to d/c from and IR standpoint. 3. Please see procedure note for attentional recs regarding tube care and maintainance. Thank you for the opportunity to assist in Mrs. Tim's care. 06/07/17 15:20 Subjective: Doing well this am. Vomited once overnight, mostly clear material. Nausea resolved. Endorses mild epigastric pain, worse with coughing. Objective: Vital Signs Temp Pulse Resp BP Pulse Ox 36.6 C 81 16 122/72 H 97 06/07/17 12:24 06/07/17 12:24 06/07/17 12:24 06/07/17 12:24 06/07/17 12:24 Laboratory Results 06/06/17 18:47 06/07/17 08:35 06/06/17 06/07/17 06/08/17 05:59 05:59 05:59 Intake Total 2076 180 Output Total 8 3 Balance 2067 177 PT 13.9 SEC (12.0-15.0) 06/06/17 11:55 INR 1.05 (0.83-1.16) 06/06/17 11:55 Gen: NAD HEENT: Postsurg changes to left face and neck, OP clear, anicteric sclera Heart: RRR Resp: Normal effort Abd: Appropriate epigastric TTP, gastrostomy tube dressing CDI Pysch: Normal affect ICD10 Worksheet Patient Problems: Problems Problem Status Onset Elevated troponin Acute Hyponatremia Acute Kidney stone Acute Renal failure Acute Respiratory failure Acute Septic shock Acute UTI (urinary tract infection) Acute Urinary tract obstruction by kidney stone Acute
[2017-06-07 16:33] VITALS: BP 117/82
--- NOTE | 2017-06-07 18:52 | PDIAF ---
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 PICC Care - Routine: Yes - Orders Services needed: Home Care, Registered Nurse Home Care Face to Face: I certify that this patient was under my care and that I had the required [id number] encounter meeting the encounter requirements on the discharge day. My findings support the fact that the patient is homebound as defined in Home Care Face to Face Continued: CMS Chapter 7 Medicare Benefits Manual 30.1.1 , The condition of the patient is such that there exists a normal inability to leave home and consequently, leaving home would require a considerable and taxing effort. Diet Recommendation: other (eeds as directed by if clinic staff, would start off more slowly for the 1st 24 hr then advance as tolerated to the prescribed regimen) Diet Texture: Thin Liquids Tube feeding: Chest had PEG tube placed, needs check to be sure PEG tube doing okay and p Equipment: PEG tube - Follow Up Care Current Providers and Referrals: Cathy Durbin PA [Primary Care Provider] -
--- NOTE | 2017-06-07 18:54 | PDDCSUM ---
Discharge Summary Discharge Summary: DISCHARGE DIAGNOSES: -parotid carcinoma -dysphagia do her cancer and treatment -status post placement of PEG tube at this point and will need to be and p.o. Intake all food medications via feeding tube CONSULTANTS: Dr. Rangel Burns PROCEDURES: PEG tube placement PICC line placement HOSPITAL COURSE SUMMARY: This patient who has recent diagnosis of parotid carcinoma and treatment for that tumor comes in with ongoing dysphagia unable to swallow successfully, repeatedly dehydrated and requiring repeated IV hydration. Having trouble getting in her oral medications and losing weight. She comes in electively for PICC catheter placement and PEG tube placement. Both of those have been performed without any complications or issues. We have given her her 1st feedings through the PEG tube at this time and she is tolerating that well. At this time she is ready to go home and will continue hydrating, getting all of her food and medications through her PEG tube. She is feeding herself and doing well with that, there are no issues with the tube placement or positioning. She will have follow-up next week in the Oncology Clinic and home nursing care for management of these new lines PENDING TEST RESULTS: None MEDICATION CHANGES: None though all of her oral medicines have changed to be administered via her feeding tube FOLLOW-UP PLAN: In Oncology Clinic next week Also home nursing care to assist with management of her PICC catheter and PEG tube is arranged Greater than 35 minutes bedside and care coordination time today
[2017-06-08] MEDS ORDERED: LEVOTHYROXINE 25 MCG TAB TUBE SCH (06:00)
[2017-06-09] MEDS ORDERED: PATCH REMOVAL 1 EA PATCH TD SCH (12:40)
== END 2017-06-07 19:46 | disposition home or self-care (01) ==
LOC: FIMAGING 10:05 → F3E 14:55 → F1N 16:18
PROVIDERS: ADMIT Student in an Organized Health Care Education/Training Program; ATTEND Student in an Organized Health Care Education/Training Program
PROC: BD12YZZ Fluoroscopy of Stomach using Other Contrast (ICD-10-PCS; principal; 2017-06-06 14:25)
PROC: 02HV33Z Insertion of Infusion Device into Superior Vena Cava, Percutaneous Approach (ICD-10-PCS; principal; 2017-06-06 14:25)
PROC: 0DH63UZ Insertion of Feeding Device into Stomach, Percutaneous Approach (ICD-10-PCS; principal; 2017-06-06 14:25)
PROC: B54NZZA Ultrasonography of Left Upper Extremity Veins, Guidance (ICD-10-PCS; principal; 2017-06-06 14:25)
DX: R13.19 Other dysphagia (principal); C07 Malignant neoplasm of parotid gland; E86.0 Dehydration; E03.9 Hypothyroidism, unspecified
CPT/HCPCS: 36556; 49440; 77001; 97165; C1751; G0378; J1100; J1650; J2270; J2405; J2550; J2704; J2710; J3010; Q9967

== ENCOUNTER → 2017-06-10 | Day surgery (SDC) | payer MEDICAID ==
[~2017-06-10] MED LIST changes: -ERTAPENEM 1 GM in NS 100 ML IV ONE; +IOPAMIDOL (ISOVUE 370) 100 ML BTL IV ONE; +LIDOCAINE 1% 300 MG/30 ML SDV ONE
== END ==
LOC: FIMAGING 15:56
PROVIDERS: ATTEND Internal Medicine Hematology & Oncology
PROC: BD12YZZ Fluoroscopy of Stomach using Other Contrast (ICD-10-PCS; principal; 2017-06-10)
DX: Z43.1 Encounter for attention to gastrostomy (principal); R11.10 Vomiting, unspecified
CPT/HCPCS: Q9967

== ENCOUNTER 2017-06-15 07:19 | Inpatient (IN) | payer MEDICAID ==
--- NOTE | 2017-06-15 07:28 | EDPHY ---
H & P Time Seen by Provider: 06/15/17 07:28 HPI/ROS: CHIEF COMPLAINT: Generalized weakness HISTORY OF PRESENT ILLNESS: Patient has parotid cancer and has a gastrostomy tube in a PICC line and is undergoing chemotherapy and radiation. She is having trouble tolerating any oral or gastric intake for the last week with multiple episodes of nausea and vomiting. Even when she uses her Jevity 1.5 in the gastrostomy 2 every time she feels upper stomach she has vomiting. Patient presents today with just generalized weakness. She can't stand or walk because she feels so dehydrated. Symptoms are severe. Not associated with headache or any focal neurologic deficit. Not better worse with anything. REVIEW OF SYSTEMS: Eye: no change in vision ENT: no sore throat Cardiac: no chest pain or syncope Pulmonary: no cough or SOB Abdomen: HPI no abdominal pain. She is having some bowel movements which are loose and a little bit of diarrhea, no melena. Musculoskeletal: no back pain Skin: Bruising on her right arm from previous IV attempts Neuro: no headache Constitutional: no fever : no urinary symptoms A comprehensive 10 point review of systems is otherwise negative aside from elements mentioned in the history of present illness. PAST MEDICAL HISTORY: History and physical dated 06/06/[address] Mercado includes parotid gland cancer, hypothyroid, cholecystectomy, urosepsis with nephrostomy tube last November. Social history: Nonsmoker General Appearance: Alert and conversant, cooperative. Eyes: No scleral icterus. ENT, Mouth: Dry mucous membranes Respiratory: Normal respiratory effort, breath sounds equal, lungs are clear to auscultation. Cardiovascular: Regular rate and rhythm. Gastrointestinal: Abdomen is soft and non tender. Neurological: Alert, face symmetric, normal motor and sensory in extremities. Skin: Right arm bruising from previous IV attempts, left arm PICC line and gastrostomy site looks clean dry and intact. Musculoskeletal: No peripheral edema. Psychiatric: Not agitated. Emergency Department course/MDM: Noted to be tachycardic initial heart rate in the 120s. Clinically very dehydrated. Plan to check labs and urine, admission for hydration and IV fluids and antiemetics. 838: Discussed results, will require IV potassium supplementation as still vomiting. Magnesium 2 g IV. IV potassium. EKG. Phenergan 12.5mg IV. Requires IV potassium since is still actively vomiting. Patient does not have clinical evidence of acute infection at this time. Smoking Status: Never smoked Constitutional: Initial Vital Signs Temperature (C) 36.5 C 06/15/17 07:33 Heart Rate 124 H 06/15/17 07:33 Respiratory Rate 30 H 06/15/17 07:33 Blood Pressure 114/88 H 06/15/17 07:33 O2 Sat (%) 99 06/15/17 07:33 O2 Delivery Mode Room Air Allergies/Adverse Reactions: cefazolin Allergy (Unknown, Verified 06/15/17 07:31) Rash lactose Allergy (Verified 06/15/17 07:31) Home Medications: Medication Instructions Recorded Metoclopramide [Reglan 10 mg tab 10 mg TUBE Q4 PRN 06/15/17 (*)] Ondansetron Odt [Zofran Odt 4 mg 4 mg TUBE Q4 PRN 06/15/17 (*)] guaiFENesin [Guaifenesin] 450 mg TUBE BID 06/15/17 Medical Decision Making - Diagnostics EKG Interpretation: 12-lead EKG interpreted by me; official reading is in trace master. My interpretation is sinus tachycardia with rate 104 and nonspecific lateral T- wave flattening. Consult/Admit Bed Type: [place] [id number], [facility] 910 Critical Care Time: Critical care time spent by me, Dr. Sloan, exclusively with the care of this patient was 30 minutes, exclusive of PA or MILLING MACHINIST time and exclusive of separate procedures. The organ system at risk was metabolic hypokalemia and I ordered IV magnesium, IV potassium, consultation with hospitalist, IV fluids to stabilize the patient and prevent worsening of the patient's condition. - Data Points Laboratory Results: Laboratory Results 06/15/17 07:45 06/15/17 07:45 06/15/17 06/15/17 07:45 07:45 WBC 1.77 10^3/uL L 10^3/uL (3.80-9.50) RBC 3.51 10^6/uL L 10^6/uL (4.18-5.33) Hgb 10.7 g/dL L g/dL (12.6-16.3) Hct 28.8 % L % (38.0-47.0) MCV 82.1 fL fL (81.5-99.8) MCH 30.5 pg pg (27.9-34.1) MCHC 37.2 g/dL H g/dL (32.4-36.7) RDW 12.3 % % (11.5-15.2) Plt Count 84 10^3/uL L 10^3/uL (150-400) MPV 10.3 fL fL (8.7-11.7) Neut % (Auto) 73.4 % % (39.3-74.2) Lymph % (Auto) 14.1 % L % (15.0-45.0) [place] % (Auto) 10.2 % % (4.5-13.0) Eos % (Auto) 1.1 % % (0.6-7.6) Baso % (Auto) 0.6 % % (0.3-1.7) Nucleat RBC Rel Count 1.1 % H % (0.0-0.2) Absolute Neuts (auto) 1.30 10^3/uL L 10^3/uL (1.70-6.50) Absolute Lymphs (auto) 0.25 10^3/uL L 10^3/uL (1.00-3.00) Absolute Monos (auto) 0.18 10^3/uL L 10^3/uL (0.30-0.80) Absolute Eos (auto) 0.02 10^3/uL L 10^3/uL (0.03-0.40) Absolute Basos (auto) 0.01 10^3/uL L 10^3/uL (0.02-0.10) Absolute Nucleated RBC 0.02 10^3/uL H 10^3/uL (0-0.01) Immature Gran % 0.6 % % (0.0-1.1) Immature Gran # 0.01 10^3/uL 10^3/uL (0.00-0.10) RBC/WBC/PLT Morphology NORMAL (NORMAL) Platelet Estimate DECREASED L (ADEQ) Smear Review By Ezequiel VALENZUELA MD Sodium 145 mEq/L mEq/L (135-145) Potassium 2.5 mEq/L L* mEq/L (3.5-5.2) Chloride 107 mEq/L mEq/L (97-110) Carbon Dioxide 19 mEq/l L mEq/l (22-31) Anion Gap 19 mEq/L H mEq/L (8-16) BUN 26 mg/dL H mg/dL (7-23) Creatinine 0.8 mg/dL mg/dL (0.6-1.0) Estimated GFR > 60 Glucose 129 mg/dL H mg/dL (70-100) Calcium 8.8 mg/dL mg/dL (8.5-10.4) Medications Given: Potassium Chloride (Potassium Cl 10 Meq (Premix)) 100 mls @ 100 mls/hr IV Q1H ALBERTO Stop: 06/15/17 11:29 Last Admin: 06/15/17 09:15 Dose: 100 mls Discontinued Medications Sodium Chloride (Ns) 1,000 mls @ 0 mls/hr IV EDNOW ONE; Wide Open PRN Reason: Protocol Stop: 06/15/17 07:46 Last Admin: 06/15/17 07:57 Dose: 1,000 mls Magnesium Sulfate (Magnesium Sulf 2 Gm (Premix)) 50 mls @ 50 mls/hr IV EDNOW ONE Stop: 06/15/17 09:31 Last Admin: 06/15/17 08:57 Dose: 50 mls Potassium Chloride (Potassium Cl 20 Meq (Premix)) 100 mls @ 50 mls/hr IV EDNOW ONE Stop: 06/15/17 10:38 Last Admin: 06/15/17 08:52 Dose: 100 mls Sodium Chloride (Ns) 1,000 mls @ 0 mls/hr IV EDNOW ONE; Wide Open PRN Reason: Protocol Stop: 06/15/17 08:48 Last Admin: 06/15/17 09:13 Dose: 1,000 mls Ondansetron HCl (Zofran) 4 mg IVP EDNOW ONE Stop: 06/15/17 07:46 Last Admin: 06/15/17 07:57 Dose: 4 mg Promethazine HCl (Phenergan) 12.5 mg IVP ONCE ONE Stop: 06/15/17 08:43 Last Admin: 06/15/17 08:49 Dose: 12.5 mg Departure - Departure Disposition: [facility] Inpatient Acute Clinical Impression: Dehydration, Hypokalemia Condition: Fair
[2017-06-15] MEDS ORDERED: NS 1,000 ML IV ONE ×2 (07:45→08:47)
[2017-06-15] MEDS ORDERED: ONDANSETRON 4 MG/2 ML VIAL IVP ONE (07:45)
[2017-06-15 08:00] LABS: PLATELET COUNT 84 10^3/uL (150-400)
[2017-06-15] MEDS ORDERED: MAGNESIUM SULF 2 GM/WATER 50 ML IV ONE (08:32)
[2017-06-15] MEDS ORDERED: POTASSIUM Cl (KCl) 100 ML IV ONE (08:39)
[2017-06-15] MEDS ORDERED: PROMETHAZINE HCL 25 MG/ML INJ IVP ONE (08:42)
[2017-06-15] MEDS ORDERED: POTASSIUM Cl (KCl) 10 MEQ/100 ML BAG IV ONE (08:46)
--- NOTE | 2017-06-15 08:46 | CPEKG ---
Heart Rate: 104 RR Interval: 577 P-R Interval: 160 QRSD Interval: 92 QT Interval: 368 QTC Interval: 484 P [place]: 24 QRS [place]: 11 T Wave [place]: -42 EKG Severity - ABNORMAL ECG - EKG Impression: SINUS TACHYCARDIA EKG Impression: NONSPECIFIC T ABNORMALITIES, LATERAL LEADS Electronically Signed By: Victor Manuel Sloan 15-Jun-2017 09:58:06
[2017-06-15] MEDS ORDERED: POTASSIUM Cl (KCl) 100 ML IV SCH ×3 (09:30→18:00)
[2017-06-15] MEDS ORDERED: ACETAMINOPHEN 650 MG/20.3 ML UDCUP PO PRN (10:14)
[2017-06-15] MEDS ORDERED: LORazepam 0.5 MG TAB TUBE PRN (10:14)
[2017-06-15] MEDS ORDERED: NS W/ 20 KCl/L 1,000 ML IV SCH (10:15)
[2017-06-15] MEDS ORDERED: PROTOCOL POTASSIUM 1 DOSE MISC PRN (10:18)
[2017-06-15] MEDS ORDERED: PROTOCOL MAGNESIUM 1 DOSE IV PRN (10:18)
[2017-06-15] MEDS ORDERED: POTASSIUM Cl (KCl) 10 MEQ in NS 100 ML IV ONE (10:30)
[2017-06-15] MEDS: PROMETHAZINE HCL 25 MG/ML INJ IVP SCH ×2 (12:47→17:52)
[2017-06-15] MEDS: LORazepam 2 MG/ML INJ IVP PRN (12:47)
--- NOTE | 2017-06-15 12:57 | ASMTCMCOM ---
CM Note CM Note Notes: Pt admitted for nausea, vomiting, dehydraton and hypokalemia. Recent history includes parotid cancer with chemo and radiation, cholectomy with gastronomy tube and Jevity tube feeds, nephrostomy tube, hypothyroid. Pt has a PICC line. Per Demographics, pt lives with her life partner in [place]. Discharge needs remain unclear at this time. CM will continue to follow. Current Discharge Plan: To be determined Date Signed: 06/15/2017 12:56 PM Electronically Signed By:Laine Carvalho RN
[2017-06-15] MEDS: guaiFENesin 200 MG/10 ML UDL TUBE SCH ×2 (13:02→23:29)
[2017-06-15] MEDS: PANTOPRAZOLE SODIUM 40 MG VIAL IVP SCH (13:23)
[2017-06-15] MEDS: POTASSIUM Cl (KCl) 10 MEQ in NS 100 ML IV SCH ×4 (13:23→19:36)
--- NOTE | 2017-06-15 13:51 | ASMTCMCOM ---
CM Note CM Note Notes: Pt is current with [facility] for PICC line care and tube feeds. CM will follow. Date Signed: 06/15/2017 01:50 PM Electronically Signed By:Tabatha White LCSW
--- NOTE | 2017-06-15 15:32 | PDGENHP ---
History and Physical - Chief Complaint n/v - History of Present Illness 56 yo female with hx of parotid cancer and has a recent gastrostomy tube in a PICC line and is undergoing chemotherapy and radiation. She is having trouble tolerating any oral or gastric intake for the last week with multiple episodes of nausea and vomiting. She is not tolerating her tube feeds. She has generalized weakness. She can't stand or walk because she feels so dehydrated. Symptoms are severe. Not associated with headache or any focal neurologic deficit. Afebrile, no cp, sob, cough, diarrhea, leg swelling, focal deficits PAST MEDICAL/SURGICAL HISTORY: parotid gland cancer, hypothyroid, cholecystectomy, urosepsis with nephrostomy tube. G TUBE, LEFT SIDED PICC, C SECTION X 2, CHOLECYSTECTOMY Social history: Nonsmoker fMhX: Diabetes Data: reviewed Hypokalemia History Information - Allergies/Home Medication List Allergies/Adverse Reactions: cefazolin Allergy (Unknown, Verified 06/15/17 07:31) Rash lactose Allergy (Verified 06/15/17 07:31) Home Medications: Metoclopramide [Reglan 10 mg tab (*)] 10 mg TUBE Q4 PRN 06/15/17 [Last Taken Unknown] Ondansetron Odt [Zofran Odt 4 mg (*)] 4 mg TUBE Q4 PRN 06/15/17 [Last Taken Unknown] guaiFENesin [Guaifenesin] 450 mg TUBE BID 06/15/17 [Last Taken Unknown] I have personally reviewed and updated: medical history, social history - Past Medical History Additional medical history: Hypothyroid - Surgical History Reports: cholecystectomy - Family History Positive for: cancer (Gallbladder CA in mother) - Social History Smoking Status: Never smoked Review of Systems Review of Systems: ROS: 10pt was reviewed & negative except for what was stated in HPI & below Physical Exam Physical Exam: Temp Pulse Resp BP Pulse Ox 36.6 C 97 18 110/75 97 06/15/17 12:24 06/15/17 12:24 06/15/17 12:24 06/15/17 12:24 06/15/17 12:24 Constitutional: no apparent distress Eyes: PERRL, EOMI Ears, Nose, Mouth, Throat: dry mucous membranes Cardiovascular: regular rate and rhythym, No JVD, No edema Respiratory: no respiratory distress, no rales or rhonchi, clear to auscultation Gastrointestinal: normoactive bowel sounds, soft, non-tender abdomen, no palpable masses Genitourinary: no bladder fullness Skin: warm Musculoskeletal: generalized weakness Neurologic: AAOx3 Psychiatric: interacting appropriately, not anxious, not encephalopathic, thought process linear Lymph, Heme, Immunologic: No petechiae Lab Data & Imaging Review 06/15/17 07:45 06/15/17 07:45 WBC 1.77 10^3/uL (3.80-9.50) L 06/15/17 07:45 RBC 3.51 10^6/uL (4.18-5.33) L 06/15/17 07:45 Hgb 10.7 g/dL (12.6-16.3) L 06/15/17 07:45 Hct 28.8 % (38.0-47.0) L 06/15/17 07:45 MCV 82.1 fL (81.5-99.8) 06/15/17 07:45 MCH 30.5 pg (27.9-34.1) 06/15/17 07:45 MCHC 37.2 g/dL (32.4-36.7) H 06/15/17 07:45 RDW 12.3 % (11.5-15.2) 06/15/17 07:45 Plt Count 84 10^3/uL (150-400) L 06/15/17 07:45 MPV 10.3 fL (8.7-11.7) 06/15/17 07:45 Neut % (Auto) 73.4 % (39.3-74.2) 06/15/17 07:45 Lymph % (Auto) 14.1 % (15.0-45.0) L 06/15/17 07:45 [place] % (Auto) 10.2 % (4.5-13.0) 06/15/17 07:45 Eos % (Auto) 1.1 % (0.6-7.6) 06/15/17 07:45 Baso % (Auto) 0.6 % (0.3-1.7) 06/15/17 07:45 Nucleat RBC Rel Count 1.1 % (0.0-0.2) H 06/15/17 07:45 Absolute Neuts (auto) 1.30 10^3/uL (1.70-6.50) L 06/15/17 07:45 Absolute Lymphs (auto) 0.25 10^3/uL (1.00-3.00) L 06/15/17 07:45 Absolute Monos (auto) 0.18 10^3/uL (0.30-0.80) L 06/15/17 07:45 Absolute Eos (auto) 0.02 10^3/uL (0.03-0.40) L 06/15/17 07:45 Absolute Basos (auto) 0.01 10^3/uL (0.02-0.10) L 06/15/17 07:45 Absolute Nucleated RBC 0.02 10^3/uL (0-0.01) H 06/15/17 07:45 Immature Gran % 0.6 % (0.0-1.1) 06/15/17 07:45 Immature Gran # 0.01 10^3/uL (0.00-0.10) 06/15/17 07:45 RBC/WBC/PLT Morphology NORMAL (NORMAL) 06/15/17 07:45 Platelet Estimate DECREASED (ADEQ) L 06/15/17 07:45 Smear Review By Ezequiel VALENZUELA MD 06/15/17 07:45 Sodium 145 mEq/L (135-145) 06/15/17 07:45 Potassium 2.5 mEq/L (3.5-5.2) L* 06/15/17 07:45 Chloride 107 mEq/L (97-110) 06/15/17 07:45 Carbon Dioxide 19 mEq/l (22-31) L 06/15/17 07:45 Anion Gap 19 mEq/L (8-16) H 06/15/17 07:45 BUN 26 mg/dL (7-23) H 06/15/17 07:45 Creatinine 0.8 mg/dL (0.6-1.0) 06/15/17 07:45 Estimated GFR > 60 06/15/17 07:45 Glucose 129 mg/dL (70-100) H 06/15/17 07:45 Calcium 8.8 mg/dL (8.5-10.4) 06/15/17 07:45 Urine Color TONY 06/15/17 12:30 Urine Appearance HAZY 06/15/17 12:30 Urine pH 5.0 (5.0-7.5) 06/15/17 12:30 Ur Specific [place] 1.025 (1.002-1.030) 06/15/17 12:30 Urine Protein 1+ (NEGATIVE) H 06/15/17 12:30 Urine Ketones TRACE (NEGATIVE) H 06/15/17 12:30 Urine Blood NEGATIVE (NEGATIVE) 06/15/17 12:30 Urine Nitrate NEGATIVE (NEGATIVE) 06/15/17 12:30 Urine Bilirubin NEGATIVE (NEGATIVE) 06/15/17 12:30 Urine Urobilinogen NEGATIVE EU (0.2-1.0) 06/15/17 12:30 Ur Leukocyte Esterase NEGATIVE (NEGATIVE) 06/15/17 12:30 Urine RBC NONE SEEN /hpf (0-3) 06/15/17 12:30 Urine WBC 3-5 /hpf (0-3) H 06/15/17 12:30 Ur Epithelial Cells TRACE /lpf (NONE-1+) 06/15/17 12:30 Urine Bacteria TRACE /hpf (NONE SEEN) H 06/15/17 12:30 Urine Mucus 2+ /lpf (NONE-1+) H 06/15/17 12:30 Urine Glucose NEGATIVE (NEGATIVE) 06/15/17 12:30 Assessment & Plan Assessment: #Acute Dehydration #Hypokalemia #Nausea and Vomiting #G tube with tube feeding #Parotid Gland Cancer Plan: Admit inpatient Additional IVF now Provide additional KCl Check Mg Recheck K Protonix IV Antiemetics CLD, hold tube feeds Nutrition consult Lovenox for DVT proph home meds once list is available full code
--- NOTE | 2017-06-15 16:03 | PDMN ---
Medical Necessity Medical necessity: C/M review: est. > 2 MN LOS for eval and TX of acute dehydration, hypokalemia, nausea, vomiting, patient inability to tolerate any oral or gastric intake, severe generalized weakness, patient unable to stand or walk,requiring planned Dietary consult, ongoing IV Phenergan, IV Ativan, IV Protonix, IV fluids, IV electrolyte replacement, hold tube feedings, acute inpt PT/OT/ST, comorbid parotid gland cancer, gastrostomy tube present on admissions with history of tube feedings, left sided PICC line present on admission, history of hypothyroidism, history of urosepsis with nephrostomy tube per H/P.
[2017-06-15] MEDS ORDERED: ORAL BALANCE GEL TUBE PO PRN (19:37)
[2017-06-15] MEDS ORDERED: ENOXAPARIN 40 MG/0.4 ML SYR SC SCH (21:00)
[2017-06-15] MEDS: ONDANSETRON DISINTEGRATING 4 MG TAB PO PRN (21:29)
--- NOTE | 2017-06-15 22:31 | HOSPPROG ---
Hospitalist Progress Note Assessment/Plan: XC : LUE U/S obtained due to left arm swelling. Found to have extensive deep and superficial clots. Will start therapeutic dose Lovenox. Objective: Vital Signs Temp Pulse Resp BP Pulse Ox 36.7 C 91 14 133/82 H 98 06/15/17 19:37 06/15/17 19:37 06/15/17 19:37 06/15/17 19:37 06/15/17 16:46 Laboratory Results 06/15/17 16:50 06/14/17 06/15/17 06/16/17 05:59 05:59 05:59 Intake Total 1500 Output Total 250 Balance 1250 ICD10 Worksheet Patient Problems: Problems Problem Status Onset Septic shock Acute UTI (urinary tract infection) Acute Kidney stone Acute Respiratory failure Acute Hyponatremia Acute Elevated troponin Acute Renal failure Acute Urinary tract obstruction by kidney stone Acute Dehydration Acute Hypokalemia Acute
[2017-06-15] MEDS ORDERED: ENOXAPARIN 60 MG/0.6 ML SYR SC ONE (23:00)
[2017-06-15] MEDS: ONDANSETRON 4 MG/2 ML VIAL IVP PRN (23:26)
[2017-06-15] MEDS ORDERED: POTASSIUM CL 20 MEQ/15 ML UDCUP TUBE ONE (23:30)
[2017-06-16] MEDS: POTASSIUM Cl (KCl) 10 MEQ in NS 100 ML IV SCH (00:18)
[2017-06-16] MEDS: PROMETHAZINE HCL 25 MG/ML INJ IVP SCH ×4 (01:06→18:38)
[2017-06-16] MEDS: guaiFENesin 200 MG/10 ML UDL TUBE SCH ×3 (01:48→21:54)
[2017-06-16] MEDS: ONDANSETRON 4 MG/2 ML VIAL IVP PRN ×2 (05:20→12:01)
[2017-06-16 05:28] LABS: PLATELET COUNT 65 10^3/uL (150-400)
[2017-06-16 05:39] LABS: CREATINE KINASE < 20 IU/L (0-156)
[2017-06-16] MEDS: D5W 1/2 NS W/ 20 KCl/L 1,000 ML IV SCH ×2 (06:42→18:52)
[2017-06-16] MEDS ORDERED: ACETAMINOPHEN 650 MG/20.3 ML UDCUP TUBE PRN (08:30)
[2017-06-16] MEDS: PANTOPRAZOLE SODIUM 40 MG VIAL IVP SCH (11:00)
--- NOTE | 2017-06-16 11:59 | WOCRNPDOC ---
[facility] Advanced Assessment Note - Skin Integrity Problem, Advanced Assess Left Medial Buttock Pressure Injury Dressing Type: Allevyn Life Exudate Amount: Scant Exudate Color: Reddish/Yellow Exudate Characteristic(s): Serosanguinous Integumentary Issue Intervention: Visualized Under Dressing Yadira Wound Tissue: Intact Yadira Wound Swelling: Mild Wound Bed Color: Red Wound Bed Constitution: Red/[place] - Non Granular Tissue Wound Edges: Well Defined Site Odor: None Site Measurement - Head-to-Toe Length X Width X Depth (cm): 0.6cmx0.5cmx0.1cm Pressure Injury Stage: Stage 2 Pressure Injury Present on Admit: Yes (hospitalist notified) Skin Integrity Problem Comment: Discrete, circular wound noted over patient's L ischium, consistent in appearance w/ stage 2 pressure injury. Per patient, she has had this wound for "months" and it was previously "much larger." No swelling or erythema periwound. Orders for pressure-relieving interventions initiated, including pressure-relieving mattress, off-loading chair cushion, and turns side to side q.2 hrs.
[2017-06-16] MEDS: ENOXAPARIN 100 MG/ML SYR SC SCH ×2 (12:01→21:55)
--- NOTE | 2017-06-16 12:09 | GCON ---
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 HISTORY OF PRESENT ILLNESS: The patient is a very pleasant 56-year-old female, who is being currently treated with curative intent for a stage HECTOR ([id number]) locally advanced parotid gland carcinoma. Her oncology history dates back to the summer when she first noted a mass in the left parotid region. An FNA in December of 2016 showed cells consistent with high-grade carcinoma. She then had a needle biopsy in January of 2017 with the pathology revealing a malignancy suggestive of squamous cell differentiation and HPV negative. She had surgery in March with Dr. Crum in [place] and underwent a superficial and deep lobe left parotidectomy, with facial nerve dissection and preservation. There was a neck dissection and dermal implant created to her left face. The tumor measured 7.6 cm. It was positive for P16, but negative for P63. Ki67 was high at 100%. There was lymphovascular space invasion and perineural invasion, as well as a positive deep surgical margin. Twelve lymph nodes in the neck dissection were positive for malignancy. A PET-CT scan in April did not show any evidence of obvious metastatic disease. There was some low-level postsurgical subcutaneous change below the left ear, with some abnormal foci concerning for metastatic lymph nodes at and below the operative site. There was persistent asymmetric uptake in the right medial infrapatellar fat pad, with mild activity in a low-grade chondroid lesion in the proximal right tibia. The patient started on radiation therapy concurrent with weekly cisplatin on May. She has 9 more radiation treatments left. She has tolerated the treatment poorly. She has been unable to take adequate nutrition and had a G-tube placed about a week ago. She has not been able to tolerate the Jevity tube feeds despite working with the dietitian. She has increasing pain in her throat and is gagging with any type of oral intake. She last received cisplatin on June 10. She was admitted yesterday with extreme dehydration, hypokalemia, nausea, and vomiting. Today, she is less nauseated. She still feels weak. Overnight, she developed increasing swelling in her left arm at the site of a PICC line, and an ultrasound last evening showed an extensive deep venous thrombosis involving the left subclavian vein and surrounding veins. The PICC line was pulled, and the patient was started on Lovenox. She is accompanied currently by her daughter. PAST MEDICAL HISTORY: 1. Prior episode of urosepsis secondary to kidney stone, associated with PICC line-related DVT in November of 2016. 2. Asthma. 3. Hypothyroidism. 4. Endometriosis. 5. Anxiety. 6. Obesity. PAST SURGICAL HISTORY: C-sections, cholecystectomy, kidney stone removal in November of 2016, and ovarian cyst removal. FAMILY HISTORY: Notable for a mother with gallbladder cancer. SOCIAL HISTORY: She lives in a basement apartment with her partner in [place]. She is currently unemployed. She does not smoke cigarettes and does not drink alcohol. REVIEW OF SYSTEMS: A 10-point review of systems is negative other than noted in the HPI. There have been no fevers or chills. She does have diarrhea. No obvious mucositis. PHYSICAL EXAMINATION: GENERAL: She is an extremely uncomfortable-appearing female. Tearful. VITAL SIGNS: Blood pressure 134/99, heart rate 89, O2 sat 100% on room air. Afebrile. HEENT: Pupils are equal. Sclerae anicteric. Oropharynx: Moist mucous membranes, without obvious thrush or mucositis. NECK : She has an extensive well-healed incision over the left neck, without any obvious palpable abnormality. There is diffuse induration with mild erythema, but no skin desquamation. LUNGS: Clear to auscultation anteriorly. HEART: Regular rate. ABDOMEN: G-tube in place in the left upper quadrant. Soft, nontender. Normal bowel sounds. EXTREMITIES: 1+ bilateral lower extremity edema. The left arm has 2+ edema throughout. The right arm has an IV in the hand. LABORATORY DATA: White blood cell count 1.3, absolute neutrophil count 0.7, hematocrit 21.3, platelets 65. Creatinine 0.6. Potassium on admission 2.5. Left upper extremity ultrasound shows extensive deep and superficial thrombosis throughout the left arm involving the left subclavian vein, brachial veins, basilic vein, and axillary vein. 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 The tumor is staged as HECTOR (T3 N2b M0). She has undergone gross local resection with a positive deep margin and 12 involved lymph nodes. She is currently undergoing chemoradiation, with 9 radiation treatments remaining. She is tolerating the treatment poorly and is neutropenic and dehydrated. She is declining any additional chemotherapy, and I think that medically right now, it is most appropriate to hold the chemotherapy. We will determine tomorrow whether or not she resumes radiation, but I suspect that she can continue on the course of radiation through completion without any additional chemotherapy. Nutrition is an issue. We will have the dietitian meet with her to determine if we can get any further recommendations regarding the G-tube feedings. If she does not tolerate them, she may need some form of peripheral TPN for the next few weeks. She will need IV access, and I think a right PICC line would be most appropriate. The risk of thrombosis would be significantly decreased as she continues on therapeutic anticoagulation. For now, I would continue with therapeutic Lovenox. We will continue to follow along with you. The patient needs to be monitored closely for fever, as she is neutropenic. /[id number]/MODL MTDD
[2017-06-16] MEDS ORDERED: POTASSIUM CL 10 MEQ TAB PO ONE (13:20)
[2017-06-16] MEDS ORDERED: POTASSIUM CL 20 MEQ/15 ML UDCUP TUBE ONE ×2 (13:30→22:00)
--- NOTE | 2017-06-16 14:15 | ASMTCMCOM ---
CM Note CM Note Notes: Per RN, pt has not been tolerating tube feedings and also had a DVT in her PICC line, which was pulled. Alerted [facility] to her admission. CM to follow. Date Signed: 06/16/2017 02:15 PM Electronically Signed By:Tabatha White LCSW
--- NOTE | 2017-06-16 14:47 | HOSPPROG ---
Hospitalist Progress Note Assessment/Plan: #Acute Dehydration #Hypokalemia #Nausea and Vomiting #G tube with tube feeding #Parotid Gland Cancer #likely malnutrition #LUE DVT #Thrombocytopenia Plan: Admit inpatient Cont IVF replace K as needed Protonix IV Antiemetics CLD, hold tube feeds Nutrition consult. May need TPN Cont Lovenox Place a new PICC full code Subjective: still with nausea. hydration status is improving. no cp or sob. Objective: Vital Signs Temp Pulse Resp BP Pulse Ox 36.7 C 88 17 124/79 H 98 06/16/17 11:40 06/16/17 11:40 06/16/17 11:40 06/16/17 11:40 06/16/17 11:40 Laboratory Results 06/16/17 05:10 06/16/17 05:10 06/15/17 06/16/17 06/17/17 05:59 05:59 05:59 Intake Total 2805 Output Total 500 Balance 2305 - Physical Exam Constitutional: no apparent distress Eyes: PERRL Ears, Nose, Mouth, Throat: moist mucous membranes, hearing normal Cardiovascular: regular rate and rhythym Respiratory: no respiratory distress, no rales or rhonchi Gastrointestinal: normoactive bowel sounds Skin: warm Neurologic: AAOx3 Psychiatric: interacting appropriately, not anxious, not encephalopathic Lymph, Heme, Immunologic: No petechiae ICD10 Worksheet Patient Problems: Problems Problem Status Onset Dehydration Acute Hypokalemia Acute Elevated troponin Acute Hyponatremia Acute Kidney stone Acute Renal failure Acute Respiratory failure Acute Septic shock Acute UTI (urinary tract infection) Acute Urinary tract obstruction by kidney stone Acute
[2017-06-16] MEDS: LORazepam 2 MG/ML INJ IVP PRN (18:38)
[2017-06-17] MEDS: PROMETHAZINE HCL 25 MG/ML INJ IVP SCH ×5 (01:41→23:47)
[2017-06-17] MEDS: PANTOPRAZOLE SODIUM 40 MG VIAL IVP SCH (05:28)
[2017-06-17] MEDS: D5W 1/2 NS W/ 20 KCl/L 1,000 ML IV SCH (05:28)
[2017-06-17 06:01] LABS: PLATELET COUNT 72 10^3/uL (150-400)
[2017-06-17] MEDS ORDERED: POTASSIUM CL 10 MEQ TAB PO ONE (07:41)
[2017-06-17] MEDS ORDERED: MAGNESIUM SULF 1 GM/DEXTROSE 100 ML IV ONE (07:44)
[2017-06-17] MEDS ORDERED: POTASSIUM CL 20 MEQ/15 ML UDCUP TUBE ONE ×2 (08:00→20:15)
[2017-06-17] MEDS: ONDANSETRON DISINTEGRATING 4 MG TAB PO PRN (08:05)
[2017-06-17] MEDS: ONDANSETRON 4 MG/2 ML VIAL IVP PRN ×2 (08:09→21:17)
--- NOTE | 2017-06-17 08:09 | HOSPPROG ---
Hospitalist Progress Note Assessment/Plan: #Nausea/vomiting: PRN antiemetics. Not tolerating TFs. Will change formulations #Pancytopenia: transfuse 1 unit RBC today. 1 unit platelets yesterday #Acute LUE DVT: LMWH here. Was on Eliquis for prior RUE DVT and tolerated. 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 Declining further chemo. Cont XRT. #Severe protein caloric malnutrition: wasn't tolerating Jevity. Trial different formulation, if not approved, low-threshold for TPN #Hypothyroidism: LT4 #Diet: TFs #DVT ppx: Lovenox #Disp: cont inpatient admission for TFs, possible TPN Subjective: nausea last night. No melena or bloody stools Objective: Vital Signs Temp Pulse Resp BP Pulse Ox 37.2 C 89 12 91/53 L 95 06/17/17 04:00 06/17/17 04:00 06/17/17 04:00 06/17/17 04:00 06/17/17 04:00 Laboratory Results 06/17/17 05:50 06/17/17 05:37 06/16/17 06/17/17 06/18/17 05:59 05:59 05:59 Intake Total 2805 1567 Output Total 500 1300 Balance 2305 267 - Time Spent With Patient Time Spent with Patient: greater than 35 minutes Time Spent with Patient: Greater than 35 minutes spent on this patients care, greater than 50% of time spent counseling, educating, and coordinating care regarding the above mentioned plan. - Physical Exam Constitutional: no apparent distress Eyes: PERRL Ears, Nose, Mouth, Throat: moist mucous membranes, No oral thrush Cardiovascular: regular rate and rhythym Respiratory: no respiratory distress Musculoskeletal: full muscle strength, other (LUE swelling. PICC RUE) Neurologic: AAOx3, CN II-XII Intact ICD10 Worksheet Patient Problems: Problems Problem Status Onset Dehydration Acute Hypokalemia Acute Elevated troponin Acute Hyponatremia Acute Kidney stone Acute Renal failure Acute Respiratory failure Acute Septic shock Acute UTI (urinary tract infection) Acute Urinary tract obstruction by kidney stone Acute
[2017-06-17] MEDS: ENOXAPARIN 100 MG/ML SYR SC SCH ×2 (08:24→21:12)
[2017-06-17] MEDS: guaiFENesin 200 MG/10 ML UDL TUBE SCH ×2 (08:26→21:17)
--- NOTE | 2017-06-17 10:12 | SOAPPROG ---
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 dehydration - 2/2 vomiting and poor po intake w chemoXRT; cont IVF, nutrition consult to switch G tube feedings but low threshold to start TPN today or tomorrow replace electrolytes 2. pancytopenia - 2/2 chemo 1 units PRBCs today start px levaquin given neutropenia (through G tube) 3. 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 DVT LUE - lovenox Subjective: Pt upset today not feeling well a lot of mucous production and dry heaves Objective: Vital Signs Temp Pulse Resp BP Pulse Ox 36.7 C 92 15 101/64 100 06/17/17 08:00 06/17/17 08:00 06/17/17 08:00 06/17/17 08:00 06/17/17 08:00 Laboratory Results 06/17/17 05:50 06/17/17 05:37 06/16/17 06/17/17 06/18/17 05:59 05:59 05:59 Intake Total 2805 1567 100 Output Total 500 1300 200 Balance 2305 267 -100 Gen - NAD HEENT - anicteric; oral pharynx looks good, no mucositis CV -RRR Chest - clear anteriorly Abd - soft, G tube intact Ext - no sig edema Neuro - nonfocal ICD10 Worksheet Patient Problems: Problems Problem Status Onset Dehydration Acute Hypokalemia Acute Elevated troponin Acute Hyponatremia Acute Kidney stone Acute Renal failure Acute Respiratory failure Acute Septic shock Acute UTI (urinary tract infection) Acute Urinary tract obstruction by kidney stone Acute
--- NOTE | 2017-06-17 11:46 | ASMTCMCOM ---
CM Note CM Note Notes: Chart reviewed. Met with patient and her family. She is upset regarding her failure with tube feedings at home and tell me she feels that she is unsafe at home. She would feel that if she could tolerate intake she might be able to be safe at home with her family support. Per her oncologist and hospitalist likely to start TPN for nutritional support this evening. [facility] aware that she is inpatient. Also will make referral to [facility] for home RN at discharge. C< to follow. Date Signed: 06/17/2017 11:45 AM Electronically Signed By:Ashlie Zelaya RN
--- NOTE | 2017-06-17 13:12 | WOCRNPDOC ---
WOCRN Advanced Assessment Note - Skin Integrity Problem, Advanced Assess Left Medial Buttock Pressure Injury Dressing Type: Allevyn Life Dressing Description: Clean/Dry, Intact Exudate Amount: Scant Exudate Characteristic(s): Serosanguinous Integumentary Issue Intervention: Dressing Removed Yadira Wound Tissue: Erythema, Painful/Tender Wound Bed Constitution: Granulation Tissue (30%), Adhered Slough (70%) Wound Edges: Attached Site Measurement - Head-to-Toe Length X Width X Depth (cm): 1.3x1.2x0.1 Pressure Injury Stage: Unstageable Pressure Injury Present on Admit: Yes Skin Integrity Problem Comment: 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 Patient has had this wound open and close multiple times. She also has scar tissue on her right ischial tuberosity from a mirror image wound that is now healed. Discussed offloading and how to reduce shear forces. Discussed plan of care for pressure injury and treatement goals. Wound care will follow up next week.
[2017-06-17] MEDS: FAMOTIDINE 20 MG TAB TUBE SCH (21:11)
[2017-06-18] MEDS: D5W 1/2 NS W/ 20 KCl/L 1,000 ML IV SCH ×2 (01:12→14:41)
[2017-06-18 04:58] LABS: PLATELET COUNT 82 10^3/uL (150-400)
[2017-06-18] MEDS: PROMETHAZINE HCL 25 MG/ML INJ IVP SCH (05:06)
[2017-06-18] MEDS: ONDANSETRON 4 MG/2 ML VIAL IVP PRN ×2 (08:48→13:42)
--- NOTE | 2017-06-18 09:50 | HOSPPROG ---
Hospitalist Progress Note Assessment/Plan: #Nausea/vomiting: schedule low-dose Zyprexa, give PRNs prior to meds or eating #Pancytopenia: 1 unit RBC 06/17 #Acute LUE DVT: LMWH here. Was on Eliquis for prior RUE DVT and tolerated. 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 Declining further chemo. Cont XRT. #Severe protein caloric malnutrition: wasn't tolerating Jevity. Trial different formulation, if not approved, low-threshold for TPN #Hypothyroidism: LT4 #Diet: likely TPN this shante, will d/w Dr. Estrada #DVT ppx: Lovenox #Disp: cont inpatient admission nausea, intolerance to PO. Cont IV antiemetics Subjective: TFs were not given yesterday. Still having nausea Objective: Vital Signs Temp Pulse Resp BP Pulse Ox 36.8 C 90 18 115/90 H 99 06/18/17 08:00 06/18/17 08:00 06/18/17 08:00 06/18/17 08:00 06/18/17 08:00 Laboratory Results 06/18/17 04:30 06/18/17 04:30 06/17/17 06/18/17 06/19/17 05:59 05:59 05:59 Intake Total 1567 1894 Output Total 1300 1000 Balance 267 894 - Physical Exam Constitutional: no apparent distress, other (appears brighter, more color to face) Eyes: PERRL Ears, Nose, Mouth, Throat: moist mucous membranes Cardiovascular: regular rate and rhythym Respiratory: no respiratory distress Gastrointestinal: other (G tube in place) Genitourinary: no bladder fullness Skin: warm Musculoskeletal: full muscle strength Neurologic: AAOx3, CN II-XII Intact Psychiatric: interacting appropriately ICD10 Worksheet Patient Problems: Problems Problem Status Onset Dehydration Acute Hypokalemia Acute Elevated troponin Acute Hyponatremia Acute Kidney stone Acute Renal failure Acute Respiratory failure Acute Septic shock Acute UTI (urinary tract infection) Acute Urinary tract obstruction by kidney stone Acute
[2017-06-18] MEDS ORDERED: OLANZapine 2.5 MG TAB PO SCH (10:15)
[2017-06-18] MEDS ORDERED: OLANZapine 2.5 MG TAB TUBE SCH (10:15)
[2017-06-18] MEDS ORDERED: D10W 1,000 ML IV PRN (10:36)
--- NOTE | 2017-06-18 11:13 | SOAPPROG ---
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 dehydration - 2/2 vomiting and poor po intake w chemoXRT; cont IVF, nutrition consult to switch G tube feedings I favor starting TPN today replace electrolytes 2. pancytopenia - 2/2 chemo 1 units PRBCs 06/17 start px levaquin given neutropenia 3. 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 DVT LUE - lovenox 06/18/17 11:10 Subjective: feeling somewhat better today except for mucous production (sticky) which makes her nauseated Objective: Vital Signs Temp Pulse Resp BP Pulse Ox 36.8 C 90 18 115/90 H 99 06/18/17 08:00 06/18/17 08:00 06/18/17 08:00 06/18/17 08:00 06/18/17 08:00 Laboratory Results 06/18/17 04:30 06/18/17 04:30 06/17/17 06/18/17 06/19/17 05:59 05:59 05:59 Intake Total 1567 1894 Output Total 1300 1000 Balance 267 894 Gen - NAD HEENT - oral pharunx dry but no mucositis CV - RRR Abd - soft, NT, G tube intact Ext - no sig edema ICD10 Worksheet Patient Problems: Problems Problem Status Onset Dehydration Acute Hypokalemia Acute Elevated troponin Acute Hyponatremia Acute Kidney stone Acute Renal failure Acute Respiratory failure Acute Septic shock Acute UTI (urinary tract infection) Acute Urinary tract obstruction by kidney stone Acute
[2017-06-18] MEDS ORDERED: BIOTENE DRY MOUTH MOUTHWASH 237 ML BTL MM PRN (11:16)
[2017-06-18 11:40] LABS: PLATELET COUNT 86 10^3/uL (150-400)
[2017-06-18 11:44] LABS: INR 1.23 (0.83-1.16); PROTIME(PATIENT) 15.7 SEC (12.0-15.0)
[2017-06-18] MEDS: levOFLOXACIN 500 MG/DEXTROSE 100 ML IV SCH (12:02)
[2017-06-18] MEDS: FAMOTIDINE 20 MG TAB TUBE SCH (12:17)
[2017-06-18] MEDS: ENOXAPARIN 100 MG/ML SYR SC SCH ×2 (12:17→19:40)
[2017-06-18] MEDS: guaiFENesin 200 MG/10 ML UDL TUBE SCH ×2 (12:18→19:44)
[2017-06-18] MEDS ORDERED: POTASSIUM Cl (KCl) 10 MEQ in D5W 100 ML IV SCH (12:30)
[2017-06-18] MEDS ORDERED: MAGNESIUM SULF 1 GM/DEXTROSE 100 ML IV ONE (12:30)
[2017-06-18] MEDS: LORazepam 2 MG/ML INJ IVP PRN ×2 (14:45→23:06)
[2017-06-18] MEDS: POTASSIUM Cl (KCl) 10 MEQ in NS 100 ML IV SCH ×3 (16:31→18:36)
[2017-06-18] MEDS: PROMETHAZINE HCL 25 MG/ML INJ IVP PRN (16:33)
[2017-06-18] MEDS: OLANZapine 2.5 MG TAB TUBE SCH (19:44)
[2017-06-18] MEDS: TPN W/ FAMOTIDINE 1 EA BAG IV SCH (20:10)
[2017-06-19 05:38] LABS: PLATELET COUNT 109 10^3/uL (150-400)
[2017-06-19 05:44] LABS: INR 1.16 (0.83-1.16)
[2017-06-19] MEDS: levOFLOXACIN 500 MG/DEXTROSE 100 ML IV SCH (09:29)
[2017-06-19] MEDS: ENOXAPARIN 100 MG/ML SYR SC SCH ×2 (09:29→21:05)
[2017-06-19] MEDS: OLANZapine 2.5 MG TAB TUBE SCH ×3 (09:30→21:09)
--- NOTE | 2017-06-19 09:33 | HOSPPROG ---
Hospitalist Progress Note Assessment/Plan: 56 yo F w post chemo nausea and vomiting #Nausea/vomiting: schedule low-dose Zyprexa, give PRNs prior to meds or eating #Pancytopenia: 1 unit RBC 06/17 counts stable 06/19 n/vom: upright film today #Acute LUE DVT: LMWH here. Was on Eliquis for prior RUE DVT and tolerated. 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 Declining further chemo. Cont XRT. #Severe protein caloric malnutrition: wasn't tolerating Jevity. Trial different formulation, if not approved, low-threshold for TPN #Hypothyroidism: LT4 #Diet: TPN this shante #DVT ppx: Lovenox #Disp: cont inpatient admission nausea, intolerance to PO. Cont IV antiemetics Subjective: case d/w dr segovia. still w nausea Objective: Vital Signs Temp Pulse Resp BP Pulse Ox 36.6 C 94 17 104/67 98 06/19/17 08:00 06/19/17 08:00 06/19/17 08:00 06/19/17 08:00 06/19/17 08:00 Laboratory Results 06/19/17 05:20 06/19/17 05:20 06/18/17 06/19/17 06/20/17 05:59 05:59 05:59 Intake Total 1894 1060 Output Total 1000 1050 400 Balance 894 10 -400 PT 15.0 SEC (12.0-15.0) 06/19/17 05:20 INR 1.16 (0.83-1.16) 06/19/17 05:20 - Physical Exam Constitutional: no apparent distress, appears nourished Eyes: PERRL, anicteric sclera Ears, Nose, Mouth, Throat: moist mucous membranes, hearing normal Cardiovascular: regular rate and rhythym, no murmur, rub, or gallop Respiratory: no respiratory distress, no rales or rhonchi, clear to auscultation Gastrointestinal: soft, non-tender abdomen, other (hypoactive bowel sounds) Genitourinary: no bladder fullness Skin: warm, normal color Musculoskeletal: full muscle strength, no muscle tenderness Neurologic: AAOx3, sensation intact bilaterally Psychiatric: interacting appropriately Lymph, Heme, Immunologic: no cervical LAD ICD10 Worksheet Patient Problems: Problems Problem Status Onset Dehydration Acute Hypokalemia Acute Elevated troponin Acute Hyponatremia Acute Kidney stone Acute Renal failure Acute Respiratory failure Acute Septic shock Acute UTI (urinary tract infection) Acute Urinary tract obstruction by kidney stone Acute
[2017-06-19] MEDS: NS 1,000 ML IV SCH ×2 (09:45→21:03)
[2017-06-19] MEDS: guaiFENesin 200 MG/10 ML UDL TUBE SCH ×2 (11:16→21:09)
--- NOTE | 2017-06-19 14:01 | SOAPPROG ---
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 dehydration - 2/2 vomiting and poor po intake w chemoXRT; cont IVF, nutrition consult to switch G tube feedings TPN started 06/18/17 replace electrolytes KUB today 2. pancytopenia - 2/2 chemo 1 units PRBCs 06/17 start px levaquin given neutropenia 3. 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 DVT LUE - lovenox 06/19/17 13:56 Subjective: No acute events still w N/V KUB pending on TPN Objective: Vital Signs Temp Pulse Resp BP Pulse Ox 36.6 C 101 H 17 98/60 L 99 06/19/17 11:40 06/19/17 11:40 06/19/17 11:40 06/19/17 11:40 06/19/17 11:40 Laboratory Results 06/19/17 05:20 06/19/17 05:20 06/18/17 06/19/17 06/20/17 05:59 05:59 05:59 Intake Total 1894 1060 Output Total 1000 1050 400 Balance 894 10 -400 PT 15.0 SEC (12.0-15.0) 06/19/17 05:20 INR 1.16 (0.83-1.16) 06/19/17 05:20 Gen - NAD HEENT - dry op; anicteric sclera CV - RRR abd - soft, Gtube intact Ext - no smith edema ICD10 Worksheet Patient Problems: Problems Problem Status Onset Dehydration Acute Hypokalemia Acute Elevated troponin Acute Hyponatremia Acute Kidney stone Acute Renal failure Acute Respiratory failure Acute Septic shock Acute UTI (urinary tract infection) Acute Urinary tract obstruction by kidney stone Acute
[2017-06-19] MEDS: TPN W/ FAMOTIDINE 1 EA BAG IV SCH (21:00)
[2017-06-20 05:45] LABS: PLATELET COUNT 109 10^3/uL (150-400)
[2017-06-20 05:53] LABS: INR 1.06 (0.83-1.16)
[2017-06-20] MEDS: guaiFENesin 200 MG/10 ML UDL TUBE SCH ×2 (08:36→23:05)
[2017-06-20] MEDS: ENOXAPARIN 100 MG/ML SYR SC SCH ×2 (08:36→23:05)
[2017-06-20] MEDS: levOFLOXACIN 500 MG/DEXTROSE 100 ML IV SCH (08:36)
[2017-06-20] MEDS: OLANZapine 2.5 MG TAB TUBE SCH ×2 (08:37→23:05)
[2017-06-20] MEDS: ONDANSETRON 4 MG/2 ML VIAL IVP PRN ×2 (09:03→14:04)
--- NOTE | 2017-06-20 16:49 | HOSPPROG ---
Hospitalist Progress Note Assessment/Plan: 56 yo F w post chemo nausea and vomiting #Nausea/vomiting: schedule low-dose Zyprexa, give PRNs prior to meds or eating #Pancytopenia: 1 unit RBC 06/17 counts stable 06/19 give 1 unit packed cells today, 06/20 n/vom: upright film 06/19 w no obstruction (interp by me) #Acute LUE DVT: LMWH here. Was on Eliquis for prior RUE DVT and tolerated. 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 Declining further chemo. Cont XRT. #Severe protein caloric malnutrition: wasn't tolerating Jevity. Trial different formulation, if not approved, low-threshold for TPN #Hypothyroidism: LT4 #Diet: TPN this shante #DVT ppx: Lovenox #Disp: cont inpatient admission nausea, intolerance to PO. Cont IV antiemetics Subjective: case d/w dr segovia Objective: Vital Signs Temp Pulse Resp BP Pulse Ox 36.4 C 111 H 18 119/62 94 06/20/17 15:28 06/20/17 15:28 06/20/17 15:28 06/20/17 15:28 06/20/17 15:28 Laboratory Results 06/20/17 05:35 06/20/17 05:35 06/19/17 06/20/17 06/21/17 05:59 05:59 05:59 Intake Total 1060 3155 Output Total 1050 1200 Balance 10 1954 PT 14.0 SEC (12.0-15.0) 06/20/17 05:35 INR 1.06 (0.83-1.16) 06/20/17 05:35 - Physical Exam Constitutional: no apparent distress, appears nourished Eyes: PERRL, anicteric sclera Ears, Nose, Mouth, Throat: moist mucous membranes, hearing normal Cardiovascular: regular rate and rhythym, no murmur, rub, or gallop Respiratory: no respiratory distress, no rales or rhonchi Gastrointestinal: normoactive bowel sounds, soft, non-tender abdomen Genitourinary: no bladder fullness Skin: warm, normal color Musculoskeletal: full muscle strength ICD10 Worksheet Patient Problems: Problems Problem Status Onset Dehydration Acute Hypokalemia Acute Elevated troponin Acute Hyponatremia Acute Kidney stone Acute Renal failure Acute Respiratory failure Acute Septic shock Acute UTI (urinary tract infection) Acute Urinary tract obstruction by kidney stone Acute
[2017-06-20] MEDS: TPN W/ FAMOTIDINE 1 EA BAG IV SCH (23:05)
[2017-06-21] MEDS: NS 1,000 ML IV SCH (05:54)
[2017-06-21] MEDS: ALTEPLASE 2 MG VIAL IVP PRN (05:56)
[2017-06-21 05:59] LABS: PLATELET COUNT 129 10^3/uL (150-400)
[2017-06-21 06:14] LABS: INR 1.03 (0.83-1.16); PROTIME(PATIENT) 13.7 SEC (12.0-15.0)
[2017-06-21] MEDS: ONDANSETRON 4 MG/2 ML VIAL IVP PRN ×2 (09:38→22:52)
[2017-06-21] MEDS: ENOXAPARIN 100 MG/ML SYR SC SCH ×2 (09:38→22:23)
[2017-06-21] MEDS: levOFLOXACIN 500 MG/DEXTROSE 100 ML IV SCH (09:38)
[2017-06-21] MEDS: OLANZapine 2.5 MG TAB TUBE SCH ×2 (09:39→22:23)
--- NOTE | 2017-06-21 11:36 | WOCRNPDOC ---
[facility] Advanced Assessment Note - Skin Integrity Problem, Advanced Assess Left Medial Buttock Pressure Injury Dressing Type: Allevyn Life Exudate Amount: Scant Exudate Color: Reddish/Yellow Exudate Characteristic(s): Serosanguinous Integumentary Issue Intervention: Visualized Under Dressing Yadira Wound Tissue: Blanching, Intact Yadira Wound Swelling: None Wound Bed Color: Red Wound Bed Constitution: Red/[place] - Non Granular Tissue Wound Edges: Epithelizing Pressure Injury Stage: Stage 2 Pressure Injury Present on Admit: Yes Skin Integrity Problem Comment: Wound dimensions smaller than previous assessment. Yellowish tissue medially resembling slough, but this is more likely exudate as it was easily removed w/ gauze. No dermal appendages noted in wound bed indicating full-thickness. Will continue w/ plan of care as wound is epithelializing along margins. Right Medial Buttock Dressing Type: Allevyn Life Dressing Description: Intact Exudate Amount: None Integumentary Issue Intervention: Visualized Under Dressing Yadira Wound Tissue: Intact Yadira Wound Swelling: None Wound Bed Color: Red (dark) Skin Integrity Problem Comment: Three, discrete dark red circular areas noted on patient's R medial buttock, as with intact skin, not over a bony prominence. Nurse noted these during assessment and was concerned about pressure injuires, as patient has a pressure injury on the left buttock. While these areas do not currently appear to be pressure-related, wound RN will continue to monitor. Patient already on pressure-relieving intervetions.
[2017-06-21] MEDS: LORazepam 2 MG/ML INJ IVP PRN (11:40)
[2017-06-21] MEDS: guaiFENesin 200 MG/10 ML UDL TUBE SCH ×2 (12:16→23:59)
--- NOTE | 2017-06-21 13:13 | SOAPPROG ---
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 No further nausea since TF has been stopped. For now continue TPN. I am hopeful that TF can be restarted next week. She has 4 additional XRT Tx remaining. She is declining further due to toxicity. She received 2 units of PRBC's last evening and feels better. No additional transfusion planned today. Her questions were answered. 06/21/17 13:07 06/21/17 13:13 Subjective: Feels better after 2 units of PRBC's yesteday. Denies pain or nausea at current time. Continues to receive XRT. Objective: Vital Signs Temp Pulse Resp BP Pulse Ox 36.6 C 106 H 18 103/65 96 06/21/17 12:00 06/21/17 12:00 06/21/17 12:00 06/21/17 12:00 06/21/17 12:00 Laboratory Results 06/21/17 05:40 06/21/17 05:40 06/20/17 06/21/17 06/22/17 05:59 05:59 05:59 Intake Total 3155 Output Total 1200 650 300 Balance 1955 -650 -300 PT 13.7 SEC (12.0-15.0) 06/21/17 05:40 INR 1.03 (0.83-1.16) 06/21/17 05:40 - Time Spent With Patient Time Spent With Patient: 20 minutes Physical Exam - Physical Exam General Appearance: alert, no apparent distress EENT: PERRL/EOMI Neck: other (Headed incision Left neck with mild radiation dermatitis) Respiratory: lungs clear Cardiac/Chest: regular rate, rhythm Abdomen: non-tender, soft Neuro/Psych: alert, normal mood/affect ICD10 Worksheet Patient Problems: Problems Problem Status Onset Dehydration Acute Hypokalemia Acute Elevated troponin Acute Hyponatremia Acute Kidney stone Acute Renal failure Acute Respiratory failure Acute Septic shock Acute UTI (urinary tract infection) Acute Urinary tract obstruction by kidney stone Acute
--- NOTE | 2017-06-21 15:06 | ASMTCMCOM ---
CM Note CM Note Notes: Pt is curretnly on TPN. Tube feeds will be restarted next week. Pt is current with [facility] and they are aware of her difficulty with tube feeds. [facility] RN added for pt at DC. DC unknown. Date Signed: 06/21/2017 03:05 PM Electronically Signed By:Tabatha White LCSW
--- NOTE | 2017-06-21 16:29 | HOSPPROG ---
Hospitalist Progress Note Assessment/Plan: 56 yo F w post chemo nausea and vomiting #Nausea/vomiting: schedule low-dose Zyprexa, give PRNs prior to meds or eating #Pancytopenia: 1 unit RBC 06/17 counts stable 06/19 give 1 unit packed cells today, 06/20 no need for transfusion 06/21 n/vom: upright film 06/19 w no obstruction (interp by me) #Acute LUE DVT: LMWH here. Was on Eliquis for prior RUE DVT and tolerated. 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 Declining further chemo. Cont XRT. #Severe protein caloric malnutrition: wasn't tolerating Jevity. Trial different formulation, if not approved, low-threshold for TPN #Hypothyroidism: LT4 #Diet: TPN this shante #DVT ppx: Lovenox #Disp: cont inpatient admission nausea, intolerance to PO. Cont IV antiemetics Subjective: case d/w dr kinney. vomited after radiation Objective: Vital Signs Temp Pulse Resp BP Pulse Ox 36.6 C 106 H 18 103/65 96 06/21/17 12:00 06/21/17 12:00 06/21/17 12:00 06/21/17 12:00 06/21/17 12:00 Laboratory Results 06/21/17 05:40 06/21/17 05:40 06/20/17 06/21/17 06/22/17 05:59 05:59 05:59 Intake Total 3155 Output Total 1200 650 300 Balance 1955 -650 -300 PT 13.7 SEC (12.0-15.0) 06/21/17 05:40 INR 1.03 (0.83-1.16) 06/21/17 05:40 - Physical Exam Constitutional: no apparent distress, appears nourished Eyes: PERRL, anicteric sclera Ears, Nose, Mouth, Throat: moist mucous membranes, hearing normal Cardiovascular: regular rate and rhythym, no murmur, rub, or gallop Respiratory: no respiratory distress, no rales or rhonchi Gastrointestinal: normoactive bowel sounds, soft, non-tender abdomen Genitourinary: no bladder fullness Skin: warm, normal color ICD10 Worksheet Patient Problems: Problems Problem Status Onset Dehydration Acute Hypokalemia Acute Elevated troponin Acute Hyponatremia Acute Kidney stone Acute Renal failure Acute Respiratory failure Acute Septic shock Acute UTI (urinary tract infection) Acute Urinary tract obstruction by kidney stone Acute
[2017-06-21] MEDS: TPN W/ FAMOTIDINE 1 EA BAG IV SCH (21:32)
[2017-06-22] MEDS: NS 1,000 ML IV SCH (06:05)
[2017-06-22] MEDS: guaiFENesin 200 MG/10 ML UDL TUBE SCH ×2 (10:01→22:12)
[2017-06-22] MEDS: ENOXAPARIN 100 MG/ML SYR SC SCH ×2 (10:01→21:40)
[2017-06-22] MEDS: OLANZapine 2.5 MG TAB TUBE SCH ×2 (10:02→21:40)
[2017-06-22] MEDS: levOFLOXACIN 500 MG/DEXTROSE 100 ML IV SCH (10:02)
--- NOTE | 2017-06-22 11:23 | SOAPPROG ---
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 No further nausea since TF has been stopped. For now continue TPN. I am hopeful that TF can be restarted next week. She has 4 additional XRT Tx remaining. She is declining further chemo due to toxicity. She received 2 units of PRBC's 2 days ago and feels better. No additional transfusion planned today.continue lovenox Her questions were answered. 06/22/17 11:20 06/22/17 11:24 Subjective: Feels ok, weak Objective: Vital Signs Temp Pulse Resp BP Pulse Ox 97.9 F 91 16 112/73 93 06/22/17 04:00 06/22/17 04:00 06/22/17 04:00 06/22/17 04:00 06/22/17 04:00 Laboratory Results 06/21/17 05:40 06/21/17 05:40 06/21/17 06/22/17 06/23/17 05:59 05:59 05:59 Intake Total 3017 Output Total 650 600 300 Balance -650 2417 -300 PT 13.7 SEC (12.0-15.0) 06/21/17 05:40 INR 1.03 (0.83-1.16) 06/21/17 05:40 Physical Exam - Physical Exam General Appearance: alert, mild distress Neck: other (erythema, surgical changes left neck) Respiratory: decreased breath sounds Cardiac/Chest: regular rate, rhythm ICD10 Worksheet Patient Problems: Problems Problem Status Onset Dehydration Acute Hypokalemia Acute Elevated troponin Acute Hyponatremia Acute Kidney stone Acute Renal failure Acute Respiratory failure Acute Septic shock Acute UTI (urinary tract infection) Acute Urinary tract obstruction by kidney stone Acute
--- NOTE | 2017-06-22 13:24 | HOSPPROG ---
Hospitalist Progress Note Assessment/Plan: 56 yo F w post chemo nausea and vomiting #Nausea/vomiting: schedule low-dose Zyprexa, give PRNs prior to meds or eating #Pancytopenia: 1 unit RBC 06/17 counts stable 06/19 give 1 unit packed cells today, 06/20 no need for transfusion 06/21, 06/22 n/vom: upright film 06/19 w no obstruction (interp by me) #Acute LUE DVT: LMWH here. Was on Eliquis for prior RUE DVT and tolerated. 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 Declining further chemo. Cont XRT. #Severe protein caloric malnutrition: wasn't tolerating Jevity. Trial different formulation, if not approved, low-threshold for TPN #Hypothyroidism: LT4 #Diet: TPN this shante #DVT ppx: Lovenox #Disp: cont inpatient admission nausea, intolerance to PO. Cont IV antiemetics Subjective: case d/w dr mabry. still having difficulty w po's Objective: Vital Signs Temp Pulse Resp BP Pulse Ox 36.6 C 91 16 112/73 93 06/22/17 04:00 06/22/17 04:00 06/22/17 04:00 06/22/17 04:00 06/22/17 04:00 Laboratory Results 06/21/17 05:40 06/21/17 05:40 06/21/17 06/22/17 06/23/17 05:59 05:59 05:59 Intake Total 3017 Output Total 650 600 300 Balance -650 2417 -300 PT 13.7 SEC (12.0-15.0) 06/21/17 05:40 INR 1.03 (0.83-1.16) 06/21/17 05:40 - Physical Exam Constitutional: no apparent distress, appears nourished Eyes: PERRL, anicteric sclera Ears, Nose, Mouth, Throat: moist mucous membranes, hearing normal Cardiovascular: regular rate and rhythym, no murmur, rub, or gallop Respiratory: no respiratory distress, no rales or rhonchi Gastrointestinal: normoactive bowel sounds, soft, non-tender abdomen Genitourinary: no bladder fullness, No cohen in urethra Skin: warm, normal color Musculoskeletal: full muscle strength Neurologic: AAOx3 ICD10 Worksheet Patient Problems: Problems Problem Status Onset Dehydration Acute Hypokalemia Acute Elevated troponin Acute Hyponatremia Acute Kidney stone Acute Renal failure Acute Respiratory failure Acute Septic shock Acute UTI (urinary tract infection) Acute Urinary tract obstruction by kidney stone Acute
[2017-06-22] MEDS: ONDANSETRON 4 MG/2 ML VIAL IVP PRN ×2 (13:28→21:51)
[2017-06-22] MEDS: TPN W/ FAMOTIDINE 1 EA BAG IV SCH (21:40)
[2017-06-23] MEDS: NS 1,000 ML IV SCH ×2 (04:20→20:41)
[2017-06-23 05:04] LABS: PLATELET COUNT 145 10^3/uL (150-400)
[2017-06-23] MEDS: guaiFENesin 200 MG/10 ML UDL TUBE SCH ×2 (09:03→20:54)
[2017-06-23] MEDS: ONDANSETRON 4 MG/2 ML VIAL IVP PRN ×3 (09:03→20:36)
[2017-06-23] MEDS: OLANZapine 2.5 MG TAB TUBE SCH ×2 (09:03→20:49)
[2017-06-23] MEDS: levOFLOXACIN 500 MG/DEXTROSE 100 ML IV SCH (09:04)
[2017-06-23] MEDS: ENOXAPARIN 100 MG/ML SYR SC SCH ×2 (09:04→20:54)
--- NOTE | 2017-06-23 11:27 | SOAPPROG ---
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 has nausea when anything given per g tube which dose not pura well for restarting tube feedings She has 4 additional XRT Tx remaining. She is declining further chemo due to toxicity. She received 2 units of PRBC's 2 days ago and feels better. No additional transfusion planned today.continue lovenox Her questions were answered. 06/22/17 11:20 06/22/17 11:24 06/23/17 11:24 Subjective: Feels ok, remains weak Objective: Vital Signs Temp Pulse Resp BP Pulse Ox 97.6 F 94 18 95/73 L 97 06/23/17 09:17 06/23/17 09:17 06/23/17 09:17 06/23/17 09:17 06/23/17 09:17 Laboratory Results 06/23/17 04:37 06/23/17 04:37 06/22/17 06/23/17 06/24/17 05:59 05:59 05:59 Intake Total 3017 2276 Output Total 600 725 Balance 2417 1551 PT 13.7 SEC (12.0-15.0) 06/21/17 05:40 INR 1.03 (0.83-1.16) 06/21/17 05:40 Physical Exam - Physical Exam General Appearance: mild distress Neck: other (erythema, surgical changes left neck) Respiratory: normal breath sounds Cardiac/Chest: regular rate, rhythm Abdomen: normal bowel sounds, non-tender ICD10 Worksheet Patient Problems: Problems Problem Status Onset Dehydration Acute Hypokalemia Acute Elevated troponin Acute Hyponatremia Acute Kidney stone Acute Renal failure Acute Respiratory failure Acute Septic shock Acute UTI (urinary tract infection) Acute Urinary tract obstruction by kidney stone Acute
--- NOTE | 2017-06-23 13:13 | HOSPPROG ---
Hospitalist Progress Note Assessment/Plan: 56 yo F w post chemo nausea and vomiting #Nausea/vomiting: schedule low-dose Zyprexa, give PRNs prior to meds or eating #Pancytopenia: 1 unit RBC 06/17 counts stable 06/19 give 1 unit packed cells today, 06/20 no need for transfusion 06/21, 06/22 n/vom: upright film 06/19 w no obstruction (interp by me) #Acute LUE DVT: LMWH here. Was on Eliquis for prior RUE DVT and tolerated. 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 Declining further chemo. Cont XRT. #Severe protein caloric malnutrition: wasn't tolerating Jevity. Trial different formulation, if not approved, low-threshold for TPN #Hypothyroidism: LT4 #Diet: TPN this shante #DVT ppx: Lovenox #Disp: cont inpatient admission nausea, intolerance to PO. Cont IV antiemetics Subjective: still w nausea, vomiting. minimal po. d/w dr mabry Objective: Vital Signs Temp Pulse Resp BP Pulse Ox 36.5 C 100 16 99/73 L 94 06/23/17 13:00 06/23/17 13:00 06/23/17 13:00 06/23/17 13:00 06/23/17 13:00 Laboratory Results 06/23/17 04:37 06/23/17 04:37 06/22/17 06/23/17 06/24/17 05:59 05:59 05:59 Intake Total 3017 2276 Output Total 600 725 Balance 2417 1551 PT 13.7 SEC (12.0-15.0) 06/21/17 05:40 INR 1.03 (0.83-1.16) 06/21/17 05:40 - Physical Exam Constitutional: no apparent distress, appears nourished Eyes: PERRL, anicteric sclera Ears, Nose, Mouth, Throat: moist mucous membranes, hearing normal Cardiovascular: regular rate and rhythym, no murmur, rub, or gallop Respiratory: no respiratory distress, no rales or rhonchi Gastrointestinal: normoactive bowel sounds, soft, non-tender abdomen Genitourinary: no bladder fullness, No cohen in urethra Skin: warm, normal color Musculoskeletal: full muscle strength Neurologic: AAOx3 ICD10 Worksheet Patient Problems: Problems Problem Status Onset Dehydration Acute Hypokalemia Acute Elevated troponin Acute Hyponatremia Acute Kidney stone Acute Renal failure Acute Respiratory failure Acute Septic shock Acute UTI (urinary tract infection) Acute Urinary tract obstruction by kidney stone Acute
--- NOTE | 2017-06-23 15:24 | ASMTCMCOM ---
CM Note CM Note Notes: Meeting hydration and nutritional needs ongoing issue. Patient declining chem due to toxicity. [facility] and [facility] services in place for when patient is able to dc. CM to follow, Plan: Home with services, HHC and infusion Date Signed: 06/23/2017 03:23 PM Electronically Signed By:Ashlie Zelaya RN
[2017-06-23] MEDS: TPN W/ FAMOTIDINE 1 EA BAG IV SCH (20:44)
[2017-06-24 06:02] LABS: PLATELET COUNT 149 10^3/uL (150-400)
[2017-06-24 06:14] LABS: PROTIME(PATIENT) 13.4 SEC (12.0-15.0)
--- NOTE | 2017-06-24 11:41 | SOAPPROG ---
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 She is currently on TPN. Tube feeds will be restarted today. If she tolerates TF, will taper her off of TPN. She has 3 additional XRT Tx remaining. She is declining further chemotherapy due to toxicity. No additional transfusion planned today. Hopefully d/c home in a few days Her questions were answered. Case d/w Dr. Calix. Subjective: Feels well. Denies abdominal pain or nausea Objective: Vital Signs Temp Pulse Resp BP Pulse Ox 36.7 C 96 16 104/76 99 06/24/17 09:40 06/24/17 09:40 06/24/17 09:40 06/24/17 09:40 06/24/17 09:40 Laboratory Results 06/24/17 05:55 06/24/17 05:55 06/23/17 06/24/17 06/25/17 05:59 05:59 05:59 Intake Total 2276 2577 Output Total 725 2250 400 Balance 1551 327 -400 PT 13.4 SEC (12.0-15.0) 06/24/17 05:55 INR 1.00 (0.83-1.16) 06/24/17 05:55 - Time Spent With Patient Time Spent With Patient: 20 minutes Physical Exam - Physical Exam General Appearance: alert, no apparent distress EENT: other (Radiation dermatitis Left neck (no area of skin breakdown)) Abdomen: non-tender, soft Neuro/Psych: alert, normal mood/affect ICD10 Worksheet Patient Problems: Problems Problem Status Onset Dehydration Acute Hypokalemia Acute Elevated troponin Acute Hyponatremia Acute Kidney stone Acute Renal failure Acute Respiratory failure Acute Septic shock Acute UTI (urinary tract infection) Acute Urinary tract obstruction by kidney stone Acute
[2017-06-24] MEDS: levOFLOXACIN 500 MG/DEXTROSE 100 ML IV SCH (11:47)
[2017-06-24] MEDS: ENOXAPARIN 100 MG/ML SYR SC SCH ×2 (11:48→20:57)
[2017-06-24] MEDS: OLANZapine 2.5 MG TAB TUBE SCH ×2 (11:48→20:59)
[2017-06-24] MEDS: guaiFENesin 200 MG/10 ML UDL TUBE SCH ×2 (11:49→20:58)
[2017-06-24] MEDS: LORazepam 2 MG/ML INJ IVP PRN (12:20)
--- NOTE | 2017-06-24 15:25 | ASMTCMCOM ---
CM Note CM Note Notes: Tube feeds restarted today. If tolerated TPN will be tapered down. Anticipate d/c home in a few days. D/C plan remains [facility] for PICC care and [facility] RN. CM will continue to follow for any change in needs. Date Signed: 06/24/2017 03:24 PM Electronically Signed By:MICHAEL Lozano
[2017-06-24] MEDS: ONDANSETRON 4 MG/2 ML VIAL IVP SCH ×2 (18:02→23:48)
--- NOTE | 2017-06-24 18:46 | HOSPPROG ---
Hospitalist Progress Note Assessment/Plan: Assessment: 56 yo F p/w chemo-related nausea and vomiting and intolerance of tube feeds Plan: #Nausea/vomiting: acute, related to tube feeds + recent chemo, scheduled low- dose Zyprexa and zofran -06/19 a-xray w/o obstruction (personally interpreted) -counseled patient that our focus over the next 24-48hrs if getting her on a TF that she will tolerate, and gently increasing to meet her caloric needs -collaborated w/ dietary and pharmacy, will trial new TF at 20/hr and increase rate as aldo #Pancytopenia 2/2 chemotherapy: s/p transfusion 2u PRBC, cont to monitor CBC -on ppx levofloxacin for ongoing neutropenia #Acute LUE DVT: LMWH here. 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 Declining further chemo. Cont XRT. #Severe protein caloric malnutrition: wasn't tolerating Jevity at home, placed on TPN but attempting to adjust to new TF today -check pre-alb level #Hypothyroidism: LT4 #Diet: TPN this shante, new TF #DVT ppx: Lovenox #Code: full #Disp: cont inpatient admission nausea, intolerance to PO Subjective: patient very upset about feeling poorly and intolerance of any PO intake Objective: Vital Signs Temp Pulse Resp BP Pulse Ox 36.5 C 108 H 18 138/79 H 97 06/24/17 15:14 06/24/17 15:14 06/24/17 15:14 06/24/17 15:14 06/24/17 15:14 Laboratory Results 06/24/17 05:55 06/24/17 05:55 06/23/17 06/24/17 06/25/17 05:59 05:59 05:59 Intake Total 2276 2577 740 Output Total 725 2250 500 Balance 1551 327 240 PT 13.4 SEC (12.0-15.0) 06/24/17 05:55 INR 1.00 (0.83-1.16) 06/24/17 05:55 - Time Spent With Patient Time Spent with Patient: greater than 35 minutes Time Spent with Patient: Greater than 35 minutes spent on this patients care, greater than 50% of time spent counseling, educating, and coordinating care regarding the above mentioned plan. - Physical Exam Constitutional: not in pain, chronically ill appearing, uncomfortable, No no apparent distress (mild) Cardiovascular: regular rate and rhythym, no murmur, rub, or gallop, No edema Respiratory: no respiratory distress, no rales or rhonchi, clear to auscultation Gastrointestinal: normoactive bowel sounds, soft, non-tender abdomen, no palpable masses, other (G-tube in place), No distension Skin: other (no erythema around G-tube) Neurologic: AAOx3, facial droop (L mouth palsy) Psychiatric: not encephalopathic, anxious, No agitated ICD10 Worksheet Patient Problems: Problems Problem Status Onset Septic shock Acute UTI (urinary tract infection) Acute Kidney stone Acute Respiratory failure Acute Hyponatremia Acute Elevated troponin Acute Renal failure Acute Urinary tract obstruction by kidney stone Acute Dehydration Acute Hypokalemia Acute
[2017-06-24] MEDS: TPN W/ FAMOTIDINE 1 EA BAG IV SCH (20:59)
[2017-06-24] MEDS: PROMETHAZINE HCL 25 MG/ML INJ IVP PRN (21:58)
[2017-06-25] MEDS: ONDANSETRON 4 MG/2 ML VIAL IVP SCH ×4 (05:14→23:00)
[2017-06-25 05:47] LABS: PLATELET COUNT 155 10^3/uL (150-400)
[2017-06-25] MEDS: levOFLOXACIN 500 MG/DEXTROSE 100 ML IV SCH (11:36)
[2017-06-25] MEDS: ENOXAPARIN 100 MG/ML SYR SC SCH ×2 (11:37→20:27)
[2017-06-25] MEDS: guaiFENesin 200 MG/10 ML UDL TUBE SCH ×2 (11:37→20:27)
[2017-06-25] MEDS: OLANZapine 2.5 MG TAB TUBE SCH ×2 (11:40→20:26)
--- NOTE | 2017-06-25 13:17 | SOAPPROG ---
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 They were stopped. She had nausea with the TF. I will start her on Decadrom 4 mg IV Q 8 hours. I think switching her TPN to cyclic TPN overnight may help. Favor re-initiating TF tomorrow at a rate of 10 cc/ hr after these adjustments. She has 2 additional XRT Tx remaining. She is declining further chemotherapy due to toxicity. No additional transfusion planned today. Hopefully d/c home in a few days Her questions were answered. Case d/w nursing Subjective: Did not tolerate TF due to nausea. Denies abdominal pain. Objective: Vital Signs Temp Pulse Resp BP Pulse Ox 36.5 C 97 17 108/69 97 06/25/17 12:00 06/25/17 12:00 06/25/17 12:00 06/25/17 12:00 06/25/17 12:00 Laboratory Results 06/25/17 05:15 06/25/17 05:15 06/24/17 06/25/17 06/26/17 05:59 05:59 05:59 Intake Total 2577 1711 Output Total 2250 1500 700 Balance 327 211 -700 PT 13.4 SEC (12.0-15.0) 06/24/17 05:55 INR 1.00 (0.83-1.16) 06/24/17 05:55 - Time Spent With Patient Time Spent With Patient: 25 minutes Physical Exam - Physical Exam General Appearance: alert, no apparent distress EENT: PERRL/EOMI Abdomen: non-tender, soft Neuro/Psych: alert, normal mood/affect ICD10 Worksheet Patient Problems: Problems Problem Status Onset Dehydration Acute Hypokalemia Acute Elevated troponin Acute Hyponatremia Acute Kidney stone Acute Renal failure Acute Respiratory failure Acute Septic shock Acute UTI (urinary tract infection) Acute Urinary tract obstruction by kidney stone Acute
[2017-06-25] MEDS ORDERED: *PHM DO NOT USE-DEXAMETHASONE 0.2 MG/ML IV PED/NEWBORN SYR IV SCH (14:00)
[2017-06-25] MEDS: DEXAMETHASONE 4 MG/ML VIAL IVP SCH ×2 (15:39→21:47)
--- NOTE | 2017-06-25 17:30 | HOSPPROG ---
Hospitalist Progress Note Assessment/Plan: Assessment: 56 yo F p/w chemo-related nausea and vomiting and intolerance of tube feeds Plan: #Nausea/vomiting: acute, related to tube feeds + recent chemo, scheduled low- dose Zyprexa and zofran -collaborated w/ dietary and pharmacy, she did not tolerate the trickle TF o/n, will attempt w/ cyclic and gauge response -d/w Dr. Hill, he has recommended dex trial, gauge effect -given that patient has not had success w/ her TF since G-tube placed, if no success w/ above, will contact Dr. Andrea tomorrow and ask if tube can be advanced to small bowel, as some of these symptoms may be from gastric shrinkage and expansion nausea #Pancytopenia 2/2 chemotherapy: s/p transfusion 2u PRBC, cont to monitor CBC -on ppx levofloxacin for ongoing neutropenia #Acute LUE DVT: LMWH here. 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 Declining further chemo. Cont XRT. #Severe protein caloric malnutrition: wasn't tolerating Jevity at home, placed on TPN but attempting to adjust to new TF today -pre-alb low 16.2 -adjusting TF as above #Hypothyroidism: LT4 #Diet: TPN this shante, new TF #DVT ppx: Lovenox #Code: full #Disp: cont inpatient admission nausea, intolerance to PO Subjective: vomited up TF o/n Objective: Vital Signs Temp Pulse Resp BP Pulse Ox 36.5 C 112 H 18 132/65 H 98 06/25/17 15:40 06/25/17 15:40 06/25/17 15:40 06/25/17 15:40 06/25/17 15:40 Laboratory Results 06/25/17 05:15 06/25/17 05:15 06/24/17 06/25/17 06/26/17 05:59 05:59 05:59 Intake Total 2577 1711 Output Total 2250 1500 1600 Balance 327 211 -1600 PT 13.4 SEC (12.0-15.0) 06/24/17 05:55 INR 1.00 (0.83-1.16) 06/24/17 05:55 - Physical Exam Constitutional: no apparent distress, not in pain, chronically ill appearing, uncomfortable Cardiovascular: regular rate and rhythym, no murmur, rub, or gallop Respiratory: no respiratory distress, no rales or rhonchi, clear to auscultation Gastrointestinal: soft, non-tender abdomen, no palpable masses, No normoactive bowel sounds (hypoactive bowel sounds), No guarding, No distension Skin: other (no erythema/induration/tenderness/abrasion around G-tube) Neurologic: AAOx3, sensation intact bilaterally, No weakness Psychiatric: interacting appropriately, not anxious, not encephalopathic, thought process linear ICD10 Worksheet Patient Problems: Problems Problem Status Onset Septic shock Acute UTI (urinary tract infection) Acute Kidney stone Acute Respiratory failure Acute Hyponatremia Acute Elevated troponin Acute Renal failure Acute Urinary tract obstruction by kidney stone Acute Dehydration Acute Hypokalemia Acute
[2017-06-25] MEDS: TPN W/ FAMOTIDINE 1 EA BAG IV SCH (20:26)
[2017-06-25] MEDS: NS 1,000 ML IV SCH (20:26)
[2017-06-25] MEDS: LORazepam 2 MG/ML INJ IVP PRN (21:47)
[2017-06-26] MEDS: ONDANSETRON 4 MG/2 ML VIAL IVP SCH ×4 (05:14→23:53)
[2017-06-26] MEDS: DEXAMETHASONE 4 MG/ML VIAL IVP SCH ×3 (05:14→21:19)
[2017-06-26 05:33] LABS: PLATELET COUNT 217 10^3/uL (150-400)
[2017-06-26] MEDS: ENOXAPARIN 100 MG/ML SYR SC SCH (08:21)
[2017-06-26] MEDS: guaiFENesin 200 MG/10 ML UDL TUBE SCH ×3 (08:21→21:07)
[2017-06-26] MEDS: OLANZapine 2.5 MG TAB TUBE SCH ×3 (08:21→21:07)
[2017-06-26] MEDS: levOFLOXACIN 500 MG/DEXTROSE 100 ML IV SCH (08:22)
--- NOTE | 2017-06-26 09:05 | SOAPPROG ---
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 She has been started on Decadrom 4 mg IV Q 8 hours, and switched to cyclic TPN overnight. I favor re-initiating TF later today at a rate of 10 cc/ hr x 24 hours, and then slowly advancing if she tolerates this. If she does not tolerate this low rate, I agree with having surgery evaluate her to advance the tube into small bowel. She has 2 additional XRT Tx remaining. (including today) She is declining further chemotherapy due to toxicity. No additional transfusion planned today. Hopefully d/c home in a few days Her questions were answered. Case d/w nursing Subjective: Feels well. today. Denies nausea or abdominal pain Objective: Vital Signs Temp Pulse Resp BP Pulse Ox 36.2 C 97 17 107/81 H 96 06/26/17 08:00 06/26/17 08:00 06/26/17 08:00 06/26/17 08:00 06/26/17 08:00 Laboratory Results 06/26/17 05:15 06/26/17 05:15 06/25/17 06/26/17 06/27/17 05:59 05:59 05:59 Intake Total 1711 2824 Output Total 1500 4900 Balance 211 -2076 PT 13.4 SEC (12.0-15.0) 06/24/17 05:55 INR 1.00 (0.83-1.16) 06/24/17 05:55 - Time Spent With Patient Time Spent With Patient: 20 minutes Physical Exam - Physical Exam General Appearance: alert, no apparent distress EENT: PERRL/EOMI Abdomen: non-tender, soft Neuro/Psych: alert, normal mood/affect ICD10 Worksheet Patient Problems: Problems Problem Status Onset Dehydration Acute Hypokalemia Acute Elevated troponin Acute Hyponatremia Acute Kidney stone Acute Renal failure Acute Respiratory failure Acute Septic shock Acute UTI (urinary tract infection) Acute Urinary tract obstruction by kidney stone Acute
--- NOTE | 2017-06-26 17:59 | HOSPPROG ---
Hospitalist Progress Note Assessment/Plan: Assessment: 56 yo F p/w chemo-related nausea and vomiting and intolerance of tube feeds Plan: #Nausea/vomiting: acute, related to tube feeds + recent chemo, scheduled low- dose Zyprexa and zofran -collaborated w/ pharmacy, she did not tolerate the trickle TF or the cyclic o/n , will reattempt today w/ 10cc/hr and gauge response -d/w Dr. Hill, he has recommended dex trial, gauge effect -d/w Dr. 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, s/p chemo, cont XRT #Severe protein caloric malnutrition: wasn't tolerating Jevity at home, placed on TPN but attempting to adjust to new TF today -pre-alb low 16.2 -adjusting TF as above #Hypothyroidism: LT4 #Diet: TPN/TF #DVT ppx: Lovenox #Code: full #Disp: cont inpatient admission nausea, intolerance to PO Subjective: patient reports no PO tolerance, TF o/n made her nauseated Objective: Vital Signs Temp Pulse Resp BP Pulse Ox 36.4 C 103 H 17 106/77 99 06/26/17 15:04 06/26/17 15:04 06/26/17 15:04 06/26/17 15:04 06/26/17 15:04 Laboratory Results 06/26/17 05:15 06/26/17 05:15 06/25/17 06/26/17 06/27/17 05:59 05:59 05:59 Intake Total 1711 2824 800 Output Total 1500 4900 500 Balance 211 -2076 300 PT 13.4 SEC (12.0-15.0) 06/24/17 05:55 INR 1.00 (0.83-1.16) 06/24/17 05:55 - Physical Exam Constitutional: no apparent distress, not in pain, chronically ill appearing, No uncomfortable Cardiovascular: regular rate and rhythym, no murmur, rub, or gallop, edema ( trace bilat LE) Respiratory: reduced air movement, No expiratory wheeze, No inspiratory crackles , No bronchial breath sounds Gastrointestinal: normoactive bowel sounds, soft, non-tender abdomen, no palpable masses, No distension Neurologic: AAOx3 Psychiatric: interacting appropriately, not anxious, not encephalopathic, thought process linear ICD10 Worksheet Patient Problems: Problems Problem Status Onset Septic shock Acute UTI (urinary tract infection) Acute Kidney stone Acute Respiratory failure Acute Hyponatremia Acute Elevated troponin Acute Renal failure Acute Urinary tract obstruction by kidney stone Acute Dehydration Acute Hypokalemia Acute
[2017-06-26] MEDS: PROMETHAZINE HCL 25 MG/ML INJ IVP PRN (21:21)
[2017-06-26] MEDS: TPN W/ FAMOTIDINE 1 EA BAG IV SCH (21:27)
[2017-06-27] MEDS: DEXAMETHASONE 4 MG/ML VIAL IVP SCH (05:59)
[2017-06-27] MEDS: ONDANSETRON 4 MG/2 ML VIAL IVP SCH ×4 (05:59→23:03)
[2017-06-27 06:09] LABS: PLATELET COUNT 222 10^3/uL (150-400)
[2017-06-27] MEDS: guaiFENesin 200 MG/10 ML UDL TUBE SCH ×2 (12:20→20:16)
[2017-06-27] MEDS: levOFLOXACIN 500 MG/DEXTROSE 100 ML IV SCH (12:31)
[2017-06-27] MEDS: OLANZapine 2.5 MG TAB TUBE SCH ×2 (12:32→20:16)
--- NOTE | 2017-06-27 13:56 | SOAPPROG ---
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 Tahir is taking her to the OR today to convert her PEG tube to a J tube. TF will be re-attempted after a J tube is placed. She was been started on Decadron 4 mg IV Q 8 hours, and switched to cyclic TPN overnight. Will stop her Decadron, as it did not seem to help, and she is having a surgical procedure. She completed her XRT today, and has now completed all planned therapy. She is declining further chemotherapy due to toxicity. No additional transfusion planned today. Case d/w Dr. Young. 06/27/17 13:52 Subjective: Did not tolerate TF Completed XRT today. Objective: Vital Signs Temp Pulse Resp BP Pulse Ox 36.6 C 81 16 108/74 98 06/27/17 07:30 06/27/17 07:30 06/27/17 07:30 06/27/17 07:30 06/27/17 07:30 Laboratory Results 06/27/17 05:58 06/27/17 05:58 06/26/17 06/27/17 06/28/17 05:59 05:59 05:59 Intake Total 2824 1319 840 Output Total 4900 1900 400 Balance -2076 -581 440 PT 13.4 SEC (12.0-15.0) 06/24/17 05:55 INR 1.00 (0.83-1.16) 06/24/17 05:55 - Time Spent With Patient Time Spent With Patient: 20 minutes Physical Exam - Physical Exam General Appearance: alert, no apparent distress EENT: PERRL/EOMI Neuro/Psych: alert, normal mood/affect ICD10 Worksheet Patient Problems: Problems Problem Status Onset Dehydration Acute Hypokalemia Acute Elevated troponin Acute Hyponatremia Acute Kidney stone Acute Renal failure Acute Respiratory failure Acute Septic shock Acute UTI (urinary tract infection) Acute Urinary tract obstruction by kidney stone Acute
--- NOTE | 2017-06-27 14:27 | HOSPPROG ---
Hospitalist Progress Note Assessment/Plan: * Parotid cancer, stage IV -s/p chemo/XRT -G tube * N/V - not tolerating Gtube feeds -change to J tube today -possible air fluid level on Xray, consider CT abd/pelvis -minimal BM and no flatus for weeks -consider more aggressive tx constipation -consider further GI eval if still not tolerating J tube feeds * Severe protein calorie malnutrition -IV TPN until GI feeds tolerated * Pancytopenia due to chemo -s/p 2 units PRBC -levaquin prophylaxis for neutropenia * LUE DVT -holding Lovenox for procedure * Morbid obesity BMI 43 Subjective: NO flatus, very tiny BM for weeks Objective: Vital Signs Temp Pulse Resp BP Pulse Ox 36.6 C 81 16 108/74 98 06/27/17 07:30 06/27/17 07:30 06/27/17 07:30 06/27/17 07:30 06/27/17 07:30 Laboratory Results 06/27/17 05:58 06/27/17 05:58 06/26/17 06/27/17 06/28/17 05:59 05:59 05:59 Intake Total 2824 1319 840 Output Total 4900 1900 400 Balance -2076 -581 440 PT 13.4 SEC (12.0-15.0) 06/24/17 05:55 INR 1.00 (0.83-1.16) 06/24/17 05:55 d/w Dr. Hill - no GI work-up done, all assumed to be chemo related N/V, although she had not had chemo for weeks AXR viewed, my personal interpretation is - remarkable paucity of stool and gas - Physical Exam Constitutional: no apparent distress, appears nourished, not in pain Cardiovascular: regular rate and rhythym, no murmur, rub, or gallop Respiratory: no respiratory distress, no rales or rhonchi, clear to auscultation Gastrointestinal: normoactive bowel sounds, soft, non-tender abdomen, no palpable masses Skin: no rashes or abrasions, no fluctuance, no induration Neurologic: AAOx3, sensation intact bilaterally Psychiatric: interacting appropriately, not anxious, not encephalopathic, thought process linear ICD10 Worksheet Patient Problems: Problems Problem Status Onset Dehydration Acute Hypokalemia Acute Elevated troponin Acute Hyponatremia Acute Kidney stone Acute Renal failure Acute Respiratory failure Acute Septic shock Acute UTI (urinary tract infection) Acute Urinary tract obstruction by kidney stone Acute
[2017-06-27] MEDS ORDERED: NALOXONE HCL 0.4 MG/ML INJ ONE (15:15)
--- NOTE | 2017-06-27 15:15 | PDPROPOC ---
Sedation Plan of Care ASA Classification: ASA 2 Planned drugs: fentanyl Mallampati Score: Class 2 Mallampati Reference Image:
[2017-06-27] MEDS ORDERED: MIDAZOLAM 2 MG/2 ML VIAL ONE (15:16)
[2017-06-27] MEDS ORDERED: FLUMAZENIL 0.5 MG/5 ML MDV IVP ONE (15:16)
[2017-06-27] MEDS ORDERED: fentaNYL 100 MCG/2 ML INJ ONE (15:16)
--- NOTE | 2017-06-27 15:16 | PDGENHP ---
History & Physical Chief Complaint: not tolerate TF History of Present Illness: gtube trickle feeds resulting in high residuals and n/v Relevant Physical Exam: indwelling 20F gtube Cardiorespiratory Assessment: RRR, nl wob
[2017-06-27] MEDS ORDERED: MIDAZOLAM 2 MG/2 ML VIAL IVP PRN (15:37)
[2017-06-27] MEDS ORDERED: fentaNYL 100 MCG/2 ML INJ IVP PRN (15:37)
[2017-06-27] MEDS ORDERED: MEPERIDINE 25 MG/ML SYR IVP PRN (15:37)
[2017-06-27] MEDS ORDERED: NALOXONE HCL 0.4 MG/ML INJ IVP PRN (15:37)
[2017-06-27] MEDS ORDERED: FLUMAZENIL 0.5 MG/5 ML MDV IVP PRN (15:37)
--- NOTE | 2017-06-27 15:39 | PDRADPN ---
Radiology Procedure Note Date of Procedure: 06/27/17 Radiologist: Jose Jang Anesthesia: IV Sedation Pre-op Diagnosis: gtube for TF Post-op Diagnosis: same Indication: high residuals Procedure: exchange G for GJ feeding tube Finding(s): 20F G for 22F GJ exchange over wire. J lumen now empties well beyond the ligament of Treitz Inf/Abcess present in the surg proc area at time of surgery?: No EBL: Minimal
[2017-06-27] MEDS: NS 1,000 ML IV SCH ×2 (15:51→20:15)
[2017-06-27] MEDS ORDERED: MAGNESIUM HYDROXIDE 30 ML UDCUP PO PRN (17:59)
[2017-06-27] MEDS ORDERED: BISACODYL 10 MG SUPP PR PRN (17:59)
[2017-06-27] MEDS ORDERED: POLYETHYLENE GLYCOL 3350 17 GM PKT PO PRN (17:59)
[2017-06-27] MEDS ORDERED: LACTULOSE 20 GM/30 ML UDCUP PO PRN (17:59)
[2017-06-27] MEDS: ENOXAPARIN 100 MG/ML SYR SC SCH (20:16)
[2017-06-27] MEDS: SENNOSIDES/DOCUSATE SODIUM TAB PO SCH (20:16)
[2017-06-27] MEDS: TPN W/ FAMOTIDINE 1 EA BAG IV SCH (20:25)
[2017-06-28 05:08] LABS: PLATELET COUNT 240 10^3/uL (150-400)
[2017-06-28] MEDS: ONDANSETRON 4 MG/2 ML VIAL IVP SCH ×3 (05:16→18:16)
[2017-06-28] MEDS: levOFLOXACIN 500 MG/DEXTROSE 100 ML IV SCH (08:47)
[2017-06-28] MEDS: guaiFENesin 200 MG/10 ML UDL TUBE SCH ×2 (08:47→21:27)
[2017-06-28] MEDS: ENOXAPARIN 100 MG/ML SYR SC SCH (08:47)
[2017-06-28] MEDS: OLANZapine 2.5 MG TAB TUBE SCH ×2 (08:47→21:32)
[2017-06-28] MEDS: SENNOSIDES/DOCUSATE SODIUM TAB PO SCH (08:48)
--- NOTE | 2017-06-28 10:40 | WOCRNPDOC ---
DAMARIS Advanced Assessment Note - Skin Integrity Problem, Advanced Assess Left Medial Buttock Pressure Injury Dressing Type: Allevyn Life Dressing Description: Clean/Dry, Intact Exudate Amount: Scant Exudate Color: Yellow, Brown Integumentary Issue Intervention: Dressing Changed Yadira Wound Tissue: Blanching, Raw, Denuded Wound Bed Color: Mellott, Red Wound Bed Constitution: Red/Mellott - Non Granular Tissue Pressure Injury Stage: Stage 2 Pressure Injury Present on Admit: Yes Skin Integrity Problem Comment: Wound cleaned with normal saline and gauze. According to Cathy CHRISTIAN, wound has improved since last week. New Allevyn placed. Continue with plan of care including off-loading and WC orders. Patient expressed concerns and problems sleeping on mattress with pump and TAPS system, because patient feels she "will slip off the bed". OK to use pillows instead of TAPS system, patient was advised to keep turn schedule. Wound care will follow up next week. Right Medial Buttock Dressing Type: Allevyn Life Dressing Description: Clean/Dry, Intact Integumentary Issue Intervention: Dressing Removed Skin Integrity Problem Comment: No change from previous assessment. Continue with off-laoding measures to reduce pressure on sacrum/buttocks. Wound care will sign off on this wound. Re-consult Wound Care PRN.
--- NOTE | 2017-06-28 11:44 | SOAPPROG ---
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 dehydration - 2/2 vomiting and poor po intake w chemoXRT; cont IVF TPN started 06/18/17 G tube converted to J tube and tolerating TF better would cont TPN today and if tolerates TF, can d/c 2. pancytopenia - 2/2 chemo/XRT no blood products needed today ANC improved d/c levaquin soon if stabilizes 3. 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 DVT LUE - lovenox 06/28/17 11:46 Subjective: No acute events Objective: Vital Signs Temp Pulse Resp BP Pulse Ox 36.7 C 108 H 16 101/54 L 96 06/28/17 08:25 06/28/17 08:25 06/28/17 08:25 06/28/17 08:25 06/28/17 08:25 Laboratory Results 06/28/17 04:50 06/28/17 04:50 06/27/17 06/28/17 06/29/17 05:59 05:59 05:59 Intake Total 1319 2750 Output Total 1900 1700 250 Balance -581 1050 -250 PT 13.4 SEC (12.0-15.0) 06/24/17 05:55 INR 1.00 (0.83-1.16) 06/24/17 05:55 Gen - NAD HEENT - anicteric CV -RRR Chest - clear anteriorly Abd - obese, BS+, Jtube site c/d/i Ext - nonpitting edema ICD10 Worksheet Patient Problems: Problems Problem Status Onset Dehydration Acute Hypokalemia Acute Elevated troponin Acute Hyponatremia Acute Kidney stone Acute Renal failure Acute Respiratory failure Acute Septic shock Acute UTI (urinary tract infection) Acute Urinary tract obstruction by kidney stone Acute
--- NOTE | 2017-06-28 16:13 | HOSPPROG ---
Hospitalist Progress Note Assessment/Plan: * Parotid cancer, stage IV -s/p chemo/XRT -G tube * N/V - not tolerating Gtube feeds -change to J tube -advance tube feeds * Severe protein calorie malnutrition -IV TPN until GI feeds tolerated * Pancytopenia due to chemo -s/p 2 units PRBC -levaquin prophylaxis for neutropenia * LUE DVT -Eliquis * Morbid obesity BMI 43 Subjective: Jtubes going better than Gtube feeds. No N/V Objective: Vital Signs Temp Pulse Resp BP Pulse Ox 36.7 C 108 H 18 95/75 L 99 06/28/17 15:20 06/28/17 15:20 06/28/17 15:20 06/28/17 15:20 06/28/17 15:20 Laboratory Results 06/28/17 04:50 06/28/17 11:45 06/27/17 06/28/17 06/29/17 05:59 05:59 05:59 Intake Total 1319 2750 Output Total 1900 1700 250 Balance -581 1050 -250 PT 13.4 SEC (12.0-15.0) 06/24/17 05:55 INR 1.00 (0.83-1.16) 06/24/17 05:55 - Physical Exam Constitutional: no apparent distress, appears nourished, not in pain Cardiovascular: regular rate and rhythym, no murmur, rub, or gallop Respiratory: no respiratory distress, no rales or rhonchi, clear to auscultation Gastrointestinal: normoactive bowel sounds, soft, non-tender abdomen, no palpable masses Skin: no rashes or abrasions, no fluctuance, no induration Neurologic: AAOx3, sensation intact bilaterally Psychiatric: interacting appropriately, not anxious, not encephalopathic, thought process linear ICD10 Worksheet Patient Problems: Problems Problem Status Onset Dehydration Acute Hypokalemia Acute Elevated troponin Acute Hyponatremia Acute Kidney stone Acute Renal failure Acute Respiratory failure Acute Septic shock Acute UTI (urinary tract infection) Acute Urinary tract obstruction by kidney stone Acute
[2017-06-28] MEDS: APIXABAN 5 MG TAB PO SCH (21:32)
[2017-06-28] MEDS: TPN W/ FAMOTIDINE 1 EA BAG IV SCH (22:16)
[2017-06-28] MEDS: NS 1,000 ML IV SCH (23:08)
[2017-06-29] MEDS: ONDANSETRON 4 MG/2 ML VIAL IVP SCH ×5 (05:25→23:41)
[2017-06-29 05:47] LABS: PLATELET COUNT 179 10^3/uL (150-400)
[2017-06-29] MEDS: guaiFENesin 200 MG/10 ML UDL TUBE SCH ×2 (09:27→20:52)
[2017-06-29] MEDS: OLANZapine 2.5 MG TAB TUBE SCH (09:27)
[2017-06-29] MEDS: APIXABAN 5 MG TAB PO SCH ×2 (09:27→20:52)
[2017-06-29] MEDS: levOFLOXACIN 500 MG/DEXTROSE 100 ML IV SCH (09:27)
--- NOTE | 2017-06-29 11:27 | SOAPPROG ---
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 Radiation completed 06/27; didn't get last 2 doses of cisplatin due to intolerability. * Pancytopenia: due to chemo/xrt; malnutrition. No need for transfusion today. No fever. * Stomatitis and malnutrition: on TPN; so far tolerating J-tube. Agree with goal of 60-65 mL/hour = 3388-7522 Kcal/day. Ok to d/c TPN * admitted w pancytopenia, dehydration, and failure to thrive during * DVT LUE: was on lovenox and changed to apixiban Subjective: Tolerating J-tube feedings; currently at about 30 mL/hour with goal of 60-65. Throat sore and mucus still thick. Objective: Vital Signs Temp Pulse Resp BP Pulse Ox 36.7 C 103 H 16 105/66 96 06/29/17 08:00 06/29/17 08:00 06/29/17 08:00 06/29/17 08:00 06/29/17 08:00 Laboratory Results 06/29/17 05:30 06/29/17 05:30 06/28/17 06/29/17 06/30/17 05:59 05:59 05:59 Intake Total 2750 3695 Output Total 1700 1500 700 Balance 1050 2195 -700 PT 13.4 SEC (12.0-15.0) 06/24/17 05:55 INR 1.00 (0.83-1.16) 06/24/17 05:55 Laboratory Tests 06/27/17 06/28/17 06/29/17 05:58 04:50 05:30 WBC 2.38 L 2.50 L 1.76 L Hgb 9.3 L 8.6 L 8.1 L Absolute Seg Neuts 1.21 L 1.05 L 0.92 L Physical Exam - Physical Exam General Appearance: no apparent distress EENT: pharynx normal Respiratory: lungs clear Cardiac/Chest: regular rate, rhythm Abdomen: normal bowel sounds, non-tender, soft, other (J-tube ok) ICD10 Worksheet Patient Problems: Problems Problem Status Onset Dehydration Acute Hypokalemia Acute Elevated troponin Acute Hyponatremia Acute Kidney stone Acute Renal failure Acute Respiratory failure Acute Septic shock Acute UTI (urinary tract infection) Acute Urinary tract obstruction by kidney stone Acute
--- NOTE | 2017-06-29 11:58 | HOSPPROG ---
Hospitalist Progress Note Assessment/Plan: * Parotid cancer, stage IV -s/p chemo/XRT * Dysphagia -G tube changed to J tube for protracted N/V/high residuals -seems to be tolerating TF now - advance slowly -DC TPN * Severe protein calorie malnutrition -tube feeds as above * Pancytopenia due to chemo -s/p 2 units PRBC -levaquin prophylaxis for neutropenia * LUE DVT -Eliquis * Morbid obesity BMI 43 Subjective: No N/V +BM and gas, doing well Objective: Vital Signs Temp Pulse Resp BP Pulse Ox 36.6 C 104 H 16 95/66 L 99 06/29/17 11:48 06/29/17 11:48 06/29/17 11:48 06/29/17 11:48 06/29/17 11:48 Laboratory Results 06/29/17 05:30 06/29/17 05:30 06/28/17 06/29/17 06/30/17 05:59 05:59 05:59 Intake Total 2750 3695 Output Total 1700 1500 700 Balance 1050 2195 -700 PT 13.4 SEC (12.0-15.0) 06/24/17 05:55 INR 1.00 (0.83-1.16) 06/24/17 05:55 d/w Dr. Hidalgo - sandoval to DC TPN - Physical Exam Constitutional: no apparent distress, appears nourished, not in pain Cardiovascular: regular rate and rhythym, no murmur, rub, or gallop Respiratory: no respiratory distress, no rales or rhonchi, clear to auscultation Gastrointestinal: normoactive bowel sounds, soft, non-tender abdomen, no palpable masses Skin: no rashes or abrasions, no fluctuance, no induration Neurologic: AAOx3, sensation intact bilaterally Psychiatric: interacting appropriately, not anxious, not encephalopathic, thought process linear ICD10 Worksheet Patient Problems: Problems Problem Status Onset Dehydration Acute Hypokalemia Acute Elevated troponin Acute Hyponatremia Acute Kidney stone Acute Renal failure Acute Respiratory failure Acute Septic shock Acute UTI (urinary tract infection) Acute Urinary tract obstruction by kidney stone Acute
--- NOTE | 2017-06-29 13:17 | ASMTCMCOM ---
CM Note CM Note Notes: Patient has a new J tube and is tolerating feeds much better. TPN has been stopped. The discharge plans remains home with [facility] and [facility], and Case Management will continue to monitor for any other needs. Date Signed: 06/29/2017 01:16 PM Electronically Signed By:Kayla Waller RN
[2017-06-29] MEDS: NS 1,000 ML IV SCH ×2 (15:59→22:37)
[2017-06-30 04:43] LABS: PLATELET COUNT 154 10^3/uL (150-400)
[2017-06-30] MEDS: ONDANSETRON 4 MG/2 ML VIAL IVP SCH ×2 (05:37→16:27)
[2017-06-30] MEDS: NS 1,000 ML IV SCH (08:58)
[2017-06-30] MEDS: guaiFENesin 200 MG/10 ML UDL TUBE SCH ×2 (09:37→22:22)
[2017-06-30] MEDS: APIXABAN 5 MG TAB PO SCH (09:38)
[2017-06-30] MEDS: levOFLOXACIN 500 MG/DEXTROSE 100 ML IV SCH (09:38)
--- NOTE | 2017-06-30 11:24 | SOAPPROG ---
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 Radiation completed 06/27; didn't get last 2 doses of cisplatin due to intolerability. * Pancytopenia: due to chemo/xrt; malnutrition. No need for transfusion today. No fever. * Stomatitis and malnutrition: Tolerating J-tube at goal of 60 mL/hour (1800- 1900 Kcal/day). Throat will take some time to heal and resolve * DVT LUE: was on lovenox and changed to apixiban Subjective: Throat is still sore but no new problems. Tolerating TF. Objective: Vital Signs Temp Pulse Resp BP Pulse Ox 36.5 C 95 16 98/70 L 95 06/30/17 08:35 06/30/17 08:35 06/30/17 08:35 06/30/17 08:35 06/30/17 08:35 Laboratory Results 06/30/17 04:30 06/30/17 04:30 06/29/17 06/30/17 07/01/17 05:59 05:59 05:59 Intake Total 3695 4083 Output Total 1500 2300 575 Balance 2195 1783 -575 PT 13.4 SEC (12.0-15.0) 06/24/17 05:55 INR 1.00 (0.83-1.16) 06/24/17 05:55 Laboratory Tests 06/29/17 06/30/17 05:30 04:30 WBC 1.76 L 1.81 L Hgb 8.1 L 7.8 L Absolute Seg Neuts 0.92 L 1.05 L Physical Exam - Physical Exam General Appearance: no apparent distress Abdomen: normal bowel sounds, non-tender, soft ICD10 Worksheet Patient Problems: Problems Problem Status Onset Dehydration Acute Hypokalemia Acute Elevated troponin Acute Hyponatremia Acute Kidney stone Acute Renal failure Acute Respiratory failure Acute Septic shock Acute UTI (urinary tract infection) Acute Urinary tract obstruction by kidney stone Acute
--- NOTE | 2017-06-30 14:27 | HOSPPROG ---
Hospitalist Progress Note Assessment/Plan: * Parotid cancer, stage IV -s/p chemo/XRT * Dysphagia -G tube changed to J tube for protracted N/V/high residuals -seems to be tolerating TF now - advance slowly -DC TPN * Severe protein calorie malnutrition -tube feeds as above * Pancytopenia due to chemo -s/p 2 units PRBC -levaquin prophylaxis for neutropenia * LUE DVT - PICC line associated -now with another new clot associated with PICC on right -? Eliquis failure -plan for discharge home with Lovenox -consider DC PICC at discharge - unclear if she needs this for cancer tx * Morbid obesity BMI 43 Subjective: new RUE swelling Objective: Vital Signs Temp Pulse Resp BP Pulse Ox 36.8 C 100 17 103/81 H 98 06/30/17 11:39 06/30/17 11:39 06/30/17 11:39 06/30/17 11:39 06/30/17 11:39 Laboratory Results 06/30/17 04:30 06/30/17 04:30 06/29/17 06/30/17 07/01/17 05:59 05:59 05:59 Intake Total 3695 4083 Output Total 1500 2300 575 Balance 2195 1783 -575 PT 13.4 SEC (12.0-15.0) 06/24/17 05:55 INR 1.00 (0.83-1.16) 06/24/17 05:55 US reviewed with radiologist dr. skinner - will basilic DVT - Time Spent With Patient Time Spent with Patient: greater than 35 minutes Time Spent with Patient: Greater than 35 minutes spent on this patients care, greater than 50% of time spent counseling, educating, and coordinating care regarding the above mentioned plan. - Physical Exam Constitutional: no apparent distress, appears nourished, not in pain Cardiovascular: regular rate and rhythym, no murmur, rub, or gallop Respiratory: no respiratory distress, no rales or rhonchi, clear to auscultation Gastrointestinal: normoactive bowel sounds, soft, non-tender abdomen, no palpable masses Skin: no rashes or abrasions, no fluctuance, no induration Neurologic: AAOx3, sensation intact bilaterally Psychiatric: interacting appropriately, not anxious, not encephalopathic, thought process linear ICD10 Worksheet Patient Problems: Problems Problem Status Onset Dehydration Acute Hypokalemia Acute Elevated troponin Acute Hyponatremia Acute Kidney stone Acute Renal failure Acute Respiratory failure Acute Septic shock Acute UTI (urinary tract infection) Acute Urinary tract obstruction by kidney stone Acute
[2017-06-30] MEDS: ONDANSETRON 4 MG/2 ML VIAL IV PRN ×2 (16:27→22:22)
[2017-06-30] MEDS: ALTEPLASE 2 MG VIAL IVP PRN ×2 (16:37→16:47)
[2017-06-30] MEDS ORDERED: ENOXAPARIN 100 MG/ML SYR SC SCH (21:00)
[2017-06-30] MEDS: ENOXAPARIN 120 MG/0.8 ML SYR SC SCH (22:22)
[2017-06-30] MEDS: LORazepam 2 MG/ML INJ IVP PRN (23:02)
[2017-07-01] MEDS ORDERED: PROMETHAZINE HCL 25 MG TAB PO PRN (09:57)
--- NOTE | 2017-07-01 11:13 | SOAPPROG ---
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 Radiation completed 06/27; didn't get last 2 doses of cisplatin due to intolerability. * Pancytopenia: due to chemo/xrt; malnutrition. No need for transfusion today. No fever. * Stomatitis and malnutrition: Tolerating J-tube at goal of 60 mL/hour (1800- 1900 Kcal/day). Throat will take some time to heal and resolve. One episode emesis today * Bilateral DVT UE: was on lovenox and changed to apixiban, now back on Lovenox , probable apixiban failure Plan: Continue tube feedings, plan is for d/c on Lovenox, may be able to d/c pic at time of discharge, no plans for further chemo 06/22/17 11:20 06/22/17 11:24 06/23/17 11:24 07/01/17 11:08 Subjective: Emesis this am, mouth still sore Objective: Vital Signs Temp Pulse Resp BP Pulse Ox 98 F 103 H 18 115/72 95 07/01/17 08:05 07/01/17 11:03 07/01/17 11:03 07/01/17 11:03 07/01/17 11:03 Laboratory Results 06/30/17 04:30 06/30/17 04:30 06/30/17 07/01/17 07/02/17 05:59 05:59 05:59 Intake Total 4083 840 Output Total 2300 2175 300 Balance 1783 -2175 540 PT 13.4 SEC (12.0-15.0) 06/24/17 05:55 INR 1.00 (0.83-1.16) 06/24/17 05:55 Physical Exam - Physical Exam General Appearance: alert, mild distress Respiratory: lungs clear, normal breath sounds Cardiac/Chest: regular rate, rhythm Abdomen: normal bowel sounds, non-tender Extremities: other (pain ru arm) ICD10 Worksheet Patient Problems: Problems Problem Status Onset Dehydration Acute Hypokalemia Acute Elevated troponin Acute Hyponatremia Acute Kidney stone Acute Renal failure Acute Respiratory failure Acute Septic shock Acute UTI (urinary tract infection) Acute Urinary tract obstruction by kidney stone Acute
[2017-07-01] MEDS: ENOXAPARIN 120 MG/0.8 ML SYR SC SCH ×2 (11:23→22:15)
[2017-07-01] MEDS: levOFLOXACIN 500 MG/DEXTROSE 100 ML IV SCH (11:23)
[2017-07-01] MEDS: ONDANSETRON 4 MG/2 ML VIAL IV PRN (11:23)
[2017-07-01] MEDS: guaiFENesin 200 MG/10 ML UDL TUBE SCH ×2 (11:24→22:15)
--- NOTE | 2017-07-01 13:15 | ASMTCMCOM ---
CM Note CM Note Notes: Patient discussed with MD. Almost at goal feed of 65 ml/hour. Likely to discharge tomorrow. Patient shares they are moving from current address to motor home today. She will be tentatively scheduled for discharge tomorrow. [employer] and [facility] aware of they transition to motor home. CM to follow. Plan: Home with [facility] Date Signed: 07/01/2017 01:15 PM Electronically Signed By:Ashlie Zelaya RN
[2017-07-01] MEDS: LANSOPRAZOLE SUSP 30MG/10ML UDSYR (Adult) TUBE SCH (16:55)
--- NOTE | 2017-07-01 17:50 | HOSPPROG ---
Hospitalist Progress Note Assessment/Plan: * Parotid cancer, stage IV -s/p chemo/XRT * Dysphagia -G tube changed to J tube for protracted N/V/high residuals -seems to be tolerating TF now - advance slowly -DC TPN * Severe protein calorie malnutrition -tube feeds as above * Pancytopenia due to chemo -s/p 2 units PRBC * LUE DVT - PICC line associated -now with another new clot associated with PICC on right -? Eliquis failure -plan for discharge home with Lovenox -DC PICC - per onc no further plans for chemo * Morbid obesity BMI 43 Patient with N/V this am. Overall however tolerating TF with change of tube. Possible discharge home tomorrow if N/V resolved. Subjective: N/V this am - this is the first time she has vomited since tube change. Scheduled IV zofran dc'd in prep for DC home. + BM Objective: Vital Signs Temp Pulse Resp BP Pulse Ox 36.7 C 100 17 113/68 96 07/01/17 15:34 07/01/17 15:34 07/01/17 15:34 07/01/17 15:34 07/01/17 15:34 Laboratory Results 06/30/17 04:30 06/30/17 04:30 06/30/17 07/01/17 07/02/17 05:59 05:59 05:59 Intake Total 4083 840 Output Total 2300 2175 300 Balance 1783 -2175 540 PT 13.4 SEC (12.0-15.0) 06/24/17 05:55 INR 1.00 (0.83-1.16) 06/24/17 05:55 d/w Dr. Leisa gómez with home per onc Abd xray - no obstruction - Physical Exam Constitutional: no apparent distress, appears nourished, not in pain Cardiovascular: regular rate and rhythym, no murmur, rub, or gallop Respiratory: no respiratory distress, no rales or rhonchi, clear to auscultation Gastrointestinal: normoactive bowel sounds, soft, non-tender abdomen, no palpable masses Skin: no rashes or abrasions, no fluctuance, no induration Neurologic: AAOx3, sensation intact bilaterally Psychiatric: interacting appropriately, not anxious, not encephalopathic, thought process linear ICD10 Worksheet Patient Problems: Problems Problem Status Onset Dehydration Acute Hypokalemia Acute Elevated troponin Acute Hyponatremia Acute Kidney stone Acute Renal failure Acute Respiratory failure Acute Septic shock Acute UTI (urinary tract infection) Acute Urinary tract obstruction by kidney stone Acute
[2017-07-02 04:45] LABS: PLATELET COUNT 171 10^3/uL (150-400)
[2017-07-02] MEDS: ENOXAPARIN 120 MG/0.8 ML SYR SC SCH (08:57)
[2017-07-02] MEDS: LANSOPRAZOLE SUSP 30MG/10ML UDSYR (Adult) TUBE SCH (08:57)
[2017-07-02] MEDS: guaiFENesin 200 MG/10 ML UDL TUBE SCH (08:58)
--- NOTE | 2017-07-02 11:14 | SOAPPROG ---
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 Radiation completed 06/27; didn't get last 2 doses of cisplatin due to intolerability. * Pancytopenia: due to chemo/xrt; malnutrition. No need for transfusion today. No fever.Gradually improving * Stomatitis and malnutrition: Tolerating J-tube at goal of 60 mL/hour (1800- 1900 Kcal/day). Throat will take some time to heal and resolve. One episode emesis today * Bilateral DVT UE: was on lovenox and changed to apixiban, now back on Lovenox , probable apixiban failure Plan: Continue tube feedings, plan is for d/c on Lovenox, may be able to d/c pic at time of discharge, no plans for further chemo. I do not think she needs fdc anticoagulation as clots were provoked, follow up Dr Prakash 2 weeks 06/22/17 11:20 06/22/17 11:24 06/23/17 11:24 07/01/17 11:08 07/02/17 11:11 Subjective: Feels ok , tired Objective: Vital Signs Temp Pulse Resp BP Pulse Ox 97.8 F 100 18 110/73 95 07/02/17 09:15 07/02/17 09:15 07/02/17 09:15 07/02/17 09:15 07/02/17 09:15 Laboratory Results 07/02/17 04:36 07/02/17 04:36 07/01/17 07/02/17 07/03/17 05:59 05:59 05:59 Intake Total 1898 1080 Output Total 7526 9520 Balance -2175 -1552 1080 PT 13.4 SEC (12.0-15.0) 06/24/17 05:55 INR 1.00 (0.83-1.16) 06/24/17 05:55 Physical Exam - Physical Exam General Appearance: alert, no apparent distress ICD10 Worksheet Patient Problems: Problems Problem Status Onset Dehydration Acute Hypokalemia Acute Elevated troponin Acute Hyponatremia Acute Kidney stone Acute Renal failure Acute Respiratory failure Acute Septic shock Acute UTI (urinary tract infection) Acute Urinary tract obstruction by kidney stone Acute
--- NOTE | 2017-07-02 11:31 | PDIAF ---
- Diagnosis Diagnosis: Parotid gland carcinoma Code Status: Full Code - Medication Management Discharge Medications: Medications to Continue on Transfer Enoxaparin [Lovenox 120 MG (*)] 110 mg SC BID #60 syr 07/02/17 [Last Taken Unknown] Lansoprazole [PREVACID 30mg/10ml susp (Adult) (*)] 30 mg TUBE DAILY #300 udsyr 07/02/17 [Last Taken Unknown] Ondansetron Odt [Zofran Odt 4 mg (*)] 4 mg TUBE Q4 PRN #30 tab 07/02/17 [Last Taken Unknown] Discharge Medications: Refer to the Discharge Home Medication list for PRN reason. - Orders Services needed: Home Care, Registered Nurse, Certified Development Intern Home Care Face to Face: I certify that this patient was under my care and that I had the required [id number] encounter meeting the encounter requirements on the discharge day. My findings support the fact that the patient is homebound as defined in Home Care Face to Face Continued: CMS Chapter 7 Medicare Benefits Manual 30.1.1 , The condition of the patient is such that there exists a normal inability to leave home and consequently, leaving home would require a considerable and taxing effort. Isolation Type: Neutropenic Isolation Diet Texture: Thin Liquids, Non Oral Meds Tube feeding: Give at 10mL/hr. Assess tolerance x 24 hours. Flush with 50ml water q4hr - Follow Up Care Current Providers and Referrals: Cathy Durbin PA [Primary Care Provider] - As per Instructions
[2017-07-02 11:52] VITALS: BP 90/63
--- NOTE | 2017-07-02 13:16 | GDS ---
[f rep st] DISCHARGE SUMMARY DISCHARGE DIAGNOSES: 1. Stage HECTOR high-grade carcinoma, left parotid gland, status post resection and adjuvant chemoradia tion. 2. Pancytopenia. 3. Stomatitis and malnutrition. 4. Bilateral upper extremity deep vein thrombosis, considered Eliquis failure. 5. Dysphagia. 6. Severe protein caloric malnutrition. 7. Morbid obesity. HISTORY OF PRESENT ILLNESS: A 56-year-old female with stage IV left parotid high-grade carcinoma who recently underwent gastrostomy tube placement and a PIC for chemotherapy. She presented with inabil ity to tolerate oral intake. She was started on tube feeds and was having persistent nausea and vomi ting. Complained of generalized weakness. HOSPITAL COURSE BY PROBLEM: 1. Stage IV parotid cancer, status post chemoradiation and resection. She will follow up with her [facility] oncologist. 2. Dysphagia. G-tube was changed to a J-tube for protracted nausea, vomiting, and high residuals. She is tolerating tube feeds now. We will advance slowly. Stop TPN. 3. Severe protein caloric malnutrition. Tube feeds as stated above. 4. Chemo related pancytopenia status post 2 units RBCs. 5. Bilateral upper extremity DVT: PICC line associated. The clot on the right is new. This consid ered an Eliquis failure. We will discharge home on Lovenox b.i.d. 6. Morbid obesity, counseled on diet. 7. Subclinical hypothyroidism. Can recheck labs several weeks after recovering from hospitalization . 8. Disposition: Patient is stable for discharge home with family. NEW MEDICATIONS: 1. Lovenox 120 mg twice b.i.d. 2. Tube feeds. 3. Zofran as needed. 4. . PHYSICAL EXAMINATION: VITAL SIGNS: Today, temperature 36.7, blood pressure 110/70, heart rate 90s t o 100, respirations 18, 95% on room air. GENERAL: Obese female lying in bed in no acute distress. HEENT: PERRLA. EOMI. Moist mucous membranes. CV: Regular rate and rhythm. No murmurs, gallops, or rubs. LUNGS: Clear. ABDOMEN: J-tube in place without surrounding erythema or pain. Positive b owel sounds. : No Nunez. MUSCULOSKELETAL: 5/5 upper and lower extremity strength. NEUROLOGIC: 2 through 12 intact. PSYCH: Alert and oriented x3. FOLLOWUP: Dr. Prakash. /[id number]/MODL
--- NOTE | 2017-07-03 14:26 | ASDISCHSUM ---
Discharge Information Plan Status: Medically Cleared to Leave: Discharge Date:07/02/2017 04:00 PM D/C Disposition: ADT D/C Disposition:Home, Routine, Self-Care Projected Discharge Date:06/18/2017 11:00 AM Transportation at D/C: Discharge Delay Reason: Follow-Up Date:06/18/2017 11:00 AM Discharge Slot: Final Diagnosis:Parotid cancer, nausea, vomiting, dehydration, hypkalemia Placement Information Referral Type:Home Infusion Referral ID:[id number] Provider Name:[facility] Address 1:[address] Address 2: City:[place] Selection Factors: State:[place] Referral Type:*Home Health Care Services Referral ID:[id number] Provider Name:[facility] Address 1:[address] Phone Number: Address 2: [address] Fax Number: City:[place] Selection Factors: State:[place] Patient Contact Information Contact Name:RAQUEL Relationship:Other Address:[place] [address] [place] [address] [employer] City:[place] Alternate Phone: State/Zip Code:[place] [address] Email: Financial Information Financial Class:Medicaid Primary Plan Desc:[facility]ID [facility] Primary Plan Number:[id number] Secondary Plan Desc: Secondary Plan Number: Assessment Information [facility] CM Progress Note CM Note CM Note Notes: Pt admitted for nausea, vomiting, dehydraton and hypokalemia. Recent history includes parotid cancer with chemo and radiation, cholectomy with gastronomy tube and Jevity tube feeds, nephrostomy tube, hypothyroid. Pt has a PICC line. Per Demographics, pt lives with her life partner in [place]. Discharge needs remain unclear at this time. CM will continue to follow. Current Discharge Plan: To be determined Date Signed: 06/15/2017 12:56 PM Electronically Signed By:Laine Carvalho RN [facility] CM Progress Note CM Note CM Note Notes: Pt is current with [facility] for PICC line care and tube feeds. CM will follow. Date Signed: 06/15/2017 01:50 PM Electronically Signed By:Tabatha White LCSW [facility] CM Progress Note CM Note CM Note Notes: Per RN, pt has not been tolerating tube feedings and also had a DVT in her PICC line, which was pulled. Alerted [facility] to her admission. CM to follow. Date Signed: 06/16/2017 02:15 PM Electronically Signed By:Tabatha White LCSW [facility] CM Progress Note CM Note CM Note Notes: Chart reviewed. Met with patient and her family. She is upset regarding her failure with tube feedings at home and tell me she feels that she is unsafe at home. She would feel that if she could tolerate intake she might be able to be safe at home with her family support. Per her oncologist and hospitalist likely to start TPN for nutritional support this evening. [facility] aware that she is inpatient. Also will make referral to [facility] for home RN at discharge. C< to follow. Date Signed: 06/17/2017 11:45 AM Electronically Signed By:Ashlie Zelaya RN [facility] CM Progress Note CM Note CM Note Notes: Pt is curretnly on TPN. Tube feeds will be restarted next week. Pt is current with [facility] and they are aware of her difficulty with tube feeds. [facility] RN added for pt at DC. DC unknown. Date Signed: 06/21/2017 03:05 PM Electronically Signed By:Tabatha White LCSW [facility] CM Progress Note CM Note CM Note Notes: Meeting hydration and nutritional needs ongoing issue. Patient declining chem due to toxicity. [facility] and [facility] services in place for when patient is able to dc. CM to follow, Plan: Home with services, HHC and infusion Date Signed: 06/23/2017 03:23 PM Electronically Signed By:Ashlie Zelaya RN [facility] CM Progress Note CM Note CM Note Notes: Tube feeds restarted today. If tolerated TPN will be tapered down. Anticipate d/c home in a few days. D/C plan remains [facility] for PICC care and [facility] RN. CM will continue to follow for any change in needs. Date Signed: 06/24/2017 03:24 PM Electronically Signed By:MICHAEL Lozano [facility] CM Progress Note CM Note CM Note Notes: Patient has a new J tube and is tolerating feeds much better. TPN has been stopped. The discharge plans remains home with [facility] and [facility], and Case Management will continue to monitor for any other needs. Date Signed: 06/29/2017 01:16 PM Electronically Signed By:Kayla Waller RN [facility] CM Progress Note CM Note CM Note Notes: Patient discussed with . Almost at goal feed of 65 ml/hour. Likely to discharge tomorrow. Patient shares they are moving from current address to motor home today. She will be tentatively scheduled for discharge tomorrow. [facility] and [facility] aware of they transition to motor home. CM to follow. Plan: Home with [facility] Date Signed: 07/01/2017 01:15 PM Electronically Signed By:Ashlie Zelaya RN Case Management Discharge Plan Note Case Management Discharge Discharge Order Complete? Answers: Yes Patient to Obtain Answers: Independently Medications Transportation Arranged Answers: Family/Friends Faxed Final Orders Answers: Yes Family Notified Answers: Yes Discharge Comments Notes: Patient discharged home. [facility] had infusion supplies delivered to hospital; patient will take these with her. I arranged home RN through [facility]; patient has been communicating with them regarding her new physical address (she has relocated to [facility]). I notified [facility] that she is now out of their service area. Patient's to transport home. All orders sent to respective agencies. Date Signed: 07/02/2017 02:57 PM Electronically Signed By:Kayla Waller RN Intervention Information
--- NOTE | 2017-07-04 11:07 | PDIAF ---
- Diagnosis Diagnosis: Parotid gland carcinoma Code Status: Full Code - Medication Management Discharge Medications: Medications to Continue on Transfer Enoxaparin [Lovenox 120 MG (*)] 120 mg SQ Q12H #60 syr 07/02/17 [Last Taken Unknown] Lansoprazole [PREVACID 30mg/10ml susp (Adult) (*)] 30 mg TUBE DAILY #300 udsyr 07/02/17 [Last Taken Unknown] Ondansetron Odt [Zofran Odt 4 mg (*)] 4 mg TUBE Q4 PRN #30 tab 07/02/17 [Last Taken Unknown] Discharge Medications: Refer to the Discharge Home Medication list for PRN reason. - Orders Services needed: Home Care, Registered Nurse, Certified Procurement Professional, Occupational Therapy Home Care Face to Face: I certify that this patient was under my care and that I had the required [id number] encounter meeting the encounter requirements on the discharge day. My findings support the fact that the patient is homebound as defined in Home Care Face to Face Continued: CMS Chapter 7 Medicare Benefits Manual 30.1.1 , The condition of the patient is such that there exists a normal inability to leave home and consequently, leaving home would require a considerable and taxing effort. Isolation Type: Neutropenic Isolation Diet Texture: Thin Liquids, Non Oral Meds Tube feeding: Give at 10mL/hr. Assess tolerance x 24 hours. Flush with 50ml water q4hr - Follow Up Care Current Providers and Referrals: Cathy Durbin PA [Primary Care Provider] - As per Instructions
== END 2017-07-02 16:00 | disposition home health service (06) | DRG 422 ==
LOC: F1N 09:56
PROVIDERS: ADMIT Internal Medicine; ATTEND Internal Medicine
PROC: 02HV33Z Insertion of Infusion Device into Superior Vena Cava, Percutaneous Approach (ICD-10-PCS; 2017-06-16)
PROC: 30233R1 Transfusion of Nonautologous Platelets into Peripheral Vein, Percutaneous Approach (ICD-10-PCS; 2017-06-16)
PROC: 30233N1 Transfusion of Nonautologous Red Blood Cells into Peripheral Vein, Percutaneous Approach (ICD-10-PCS; 2017-06-17)
PROC: 3E0436Z Introduction of Nutritional Substance into Central Vein, Percutaneous Approach (ICD-10-PCS; 2017-06-18)
PROC: 3E0G36Z Introduction of Nutritional Substance into Upper GI, Percutaneous Approach (ICD-10-PCS; principal; 2017-06-27 15:02)
PROC: 0DP67UZ Removal of Feeding Device from Stomach, Via Natural or Artificial Opening (ICD-10-PCS; principal; 2017-06-27 15:02)
PROC: 0DHA7UZ Insertion of Feeding Device into Jejunum, Via Natural or Artificial Opening (ICD-10-PCS; principal; 2017-06-27 15:02)
DX: E86.0 Dehydration (principal); E87.6 Hypokalemia; R11.2 Nausea with vomiting, unspecified; T82.868A Thrombosis due to vascular prosthetic devices, implants and grafts, initial encounter; I82.622 Acute embolism and thrombosis of deep veins of left upper extremity; I82.612 Acute embolism and thrombosis of superficial veins of left upper extremity; I82.A11 Acute embolism and thrombosis of right axillary vein; K94.23 Gastrostomy malfunction; R13.11 Dysphagia, oral phase; K12.1 Other forms of stomatitis; D61.810 Antineoplastic chemotherapy induced pancytopenia; L89.322 Pressure ulcer of left buttock, stage 2; E43 Unspecified severe protein-calorie malnutrition; C07 Malignant neoplasm of parotid gland; C77.0 Secondary and unspecified malignant neoplasm of lymph nodes of head, face and neck; Z86.718 Personal history of other venous thrombosis and embolism; Z79.01 Long term (current) use of anticoagulants; E03.9 Hypothyroidism, unspecified; E66.01 Morbid (severe) obesity due to excess calories; Z68.41 Body mass index [BMI] 40.0-44.9, adult
CPT/HCPCS: 84134-90; 92526-GN; 92610-GN; 96365; 97110-GP; 97116-GP; 97162-GP; 97165-GO; 97530-GO; 97530-GP; 97535-GO; C1751; G8978-GP-CJ; G8979-GP-CI; J1100; J1650; J1956; J2060; J2250; J2310; J2405; J2550; J2997; J3010; J3475; J3480; P9016

== ENCOUNTER → 2017-07-31 | Day surgery (SDC) | payer MEDICAID ==
[~2017-07-31] MED LIST changes: -IOPAMIDOL (ISOVUE 370) 100 ML BTL IV ONE; +LIDOCAINE 2% JELLY 20 ML (UROJECT) ONE
--- NOTE | 2017-07-31 14:43 | PDRADPN ---
Radiology Procedure Note Date of Procedure: 07/31/17 Radiologist: Jose Jang Anesthesia: Local (Specify) Pre-op Diagnosis: failed retention balloon gj tube Post-op Diagnosis: same Indication: revise Procedure: fluoro guided GJ exchange Finding(s): 22F AGNES GJ tube retention balloon leak. over guidewire, tube removed and replaced with new identical tube. satisfactory final position. Inf/Abcess present in the surg proc area at time of surgery?: No Complications: none
== END ==
LOC: FIMAGING 12:52
PROVIDERS: ATTEND Radiology Diagnostic Radiology
PROC: 0DHA7UZ Insertion of Feeding Device into Jejunum, Via Natural or Artificial Opening (ICD-10-PCS; principal; 2017-07-31)
PROC: 0DP07UZ Removal of Feeding Device from Upper Intestinal Tract, Via Natural or Artificial Opening (ICD-10-PCS; principal; 2017-07-31)
PROC: BD15YZZ Fluoroscopy of Upper GI using Other Contrast (ICD-10-PCS; principal; 2017-07-31)
DX: K94.23 Gastrostomy malfunction (principal)
CPT/HCPCS: 49452; 76000; C1729; C1769

== ENCOUNTER → 2017-08-01 | Day surgery (SDC) | payer MEDICAID ==
[~2017-08-01] MED LIST changes: +IOPAMIDOL (ISOVUE-300) 100 ML BTL ONE; -LIDOCAINE 1% 300 MG/30 ML SDV ONE; -LIDOCAINE 2% JELLY 20 ML (UROJECT) ONE
--- NOTE | 2017-08-01 17:00 | SURGCN ---
Visit Details Encounter Type: Subsequent Encounter Reason For Visit: IR Assessment/Plan: Brief fluoroscopic evaluation revealed optimal positioning of all components. Balloon position good. To avoid future anxiety, patient was provided with reference measurements on the tube to easily gauge depth. If numbers lower than 5 are visible, return for evaluation. Subjective: After GJ feeding tube revision yesterday for retention balloon rupture, patient returned today concerned that tube was out again following an episode of large volume emesis. General Appearance: no apparent distress Abdomen: non-tender, soft
== END | disposition home or self-care (01) ==
LOC: FIMAGING 16:30
PROVIDERS: ATTEND Radiology Diagnostic Radiology
DX: Z43.1 Encounter for attention to gastrostomy (principal)
CPT/HCPCS: Q9967

== ENCOUNTER → 2017-11-28 | Outpatient (CLI) | payer MEDICAID | LOC: FIMAGING 07:20 | PROVIDERS: ATTEND Internal Medicine Hematology & Oncology | DX: C08.9 Malignant neoplasm of major salivary gland, unspecified (principal); Z86.718 Personal history of other venous thrombosis and embolism ==